=== PATIENT | female | born 1960 | race Caucasian/White ===

== ENCOUNTER → 2016-04-19 | Outpatient (REF) | payer OTHER ==
[~2016-04-19] MED LIST: /DULO30CA OR; ADDE5TAB5 PO; ALBU17IN2 INH; ATEN25TA OR; ATEN25TA PO; GLUC500T OR; HYDR-3719 PO; IMIT4KIT SC; LIDO5DIS36 TD; LYRI300C PO; METF500T PO; MOBI15TA PO; OMEP10CASR PO; SYMB16INH INH; SYNT125T OR; TOPI50TA OR; VERA100C PO; VICT18IN SC; VYTO10TA5 OR; ZOLO100T OR; ZOLO100T PO; ZYRT10CA PO; byetta PO
[2016-04-19 18:20] LABS: ALBUMIN 3.9 GM/DL (3.2-5.2); ALBUMIN/GLOBULIN RATIO 1.08 (1.00-1.93); ALKALINE PHOSPHATASE 137 U/L (45-117); ALT/SGPT 24 U/L (12-78); ANION GAP 8 MEQ/L (8-16); AST/SGOT 17 U/L (15-37); BILIRUBIN,TOTAL 0.3 MG/DL (0.2-1.0); BLOOD UREA NITROGEN 9 MG/DL (7-18); CALCIUM LEVEL 9.4 MG/DL (8.5-10.1); CARBON DIOXIDE LEVEL 25 MEQ/L (21-32); CHLORIDE LEVEL 112 MEQ/L (98-107); CREATININE FOR GFR 0.67 MG/DL (0.55-1.02); GLOMERULAR FILTRATION RATE > 60.0 (>51); GLUCOSE, FASTING 153 MG/DL (70-105); POTASSIUM SERUM 4.7 MEQ/L (3.5-5.1); SODIUM LEVEL 145 MEQ/L (136-145); TOTAL PROTEIN 7.5 GM/DL (6.4-8.2)
[2016-04-19 19:38] LABS: BASO % 0.3 % (0.0-1.0); EOS # 3.7 K/mm3 (0.0-0.50); EOS % 22.9 % (0.0-3.0); LARGE UNSTAINED CELL # 0.2 K/mm3 (0.0-0.4); LYMPH # 2.8 K/mm3 (1.5-4.5); LYMPH % 17.6 % (24.0-44.0); MEAN CORPUSCULAR HEMOGLOBIN 27.2 pg (27.0-33.0); MEAN CORPUSCULAR HGB CONC 31.2 g/dl (32.0-36.5); MEAN CORPUSCULAR VOLUME 87.4 fl (80.0-96.0); MONO # 0.8 K/mm3 (0.0-0.8); MONO % 4.7 % (0.0-5.0); NEUTROPHILS # 8.6 K/mm3 (1.8-7.7); NEUTROPHILS % 53.5 % (36.0-66.0); PLATELET COUNT, AUTOMATED 425 k/mm3 (150-450); RED CELL DISTRIBUTION WIDTH 15.4 % (11.5-14.5); WHITE BLOOD COUNT 16.1 K/mm3 (4.0-10.0)
== END ==
LOC: M SFHCCLAY 11:11
PROVIDERS: ATTEND Family Medicine
DX: K52.9 Noninfective gastroenteritis and colitis, unspecified (principal)

== ENCOUNTER → 2016-05-06 | Outpatient (REF) | payer OTHER ==
[2016-05-06 18:57] LABS: MEAN CORPUSCULAR HEMOGLOBIN 27.3 pg (27.0-33.0); MEAN CORPUSCULAR HGB CONC 31.5 g/dl (32.0-36.5); MEAN CORPUSCULAR VOLUME 86.6 fl (80.0-96.0); RED CELL DISTRIBUTION WIDTH 14.6 % (11.5-14.5); WHITE BLOOD COUNT 13.3 K/mm3 (4.0-10.0)
== END ==
LOC: M SFHCCLAY 11:58
PROVIDERS: ATTEND Family Medicine
DX: R10.84 Generalized abdominal pain (principal)

== ENCOUNTER → 2016-05-17 | Outpatient (CLI) | payer OTHER | LOC: M RAD 08:46 | PROVIDERS: ATTEND Family Medicine | DX: R10.84 Generalized abdominal pain (principal); Z53.29 Procedure and treatment not carried out because of patient's decision for other reasons ==

== ENCOUNTER → 2016-05-23 | Outpatient (CLI) | payer OTHER ==
[~2016-05-23] MED LIST changes: +E-Z PAQUE 60% w/v SUSP 355ML BOTTLE As Ordered ONE; +E-Z-GAS II EFFERVESCENT PACKET (SODIUM BICARB./CITRIC ACID/SIMETHICONE) As Ordered ONE; +E-Z-HD 98% w/w 340GM SUSP BTL As Ordered ONE
--- NOTE | 2016-05-23 13:54 | REP ---
DOUBLE CONTRAST UPPER GI SERIES WITH SMALL-BOWEL FOLLOW-THROUGH AND KUB: 05/23/2016 CLINICAL HISTORY: Generalized abdominal pain. No prior studies. FINDINGS: The judge clerk film shows a normal gas pattern. There are a few pelvic phleboliths. Stool and gas scattered without dilatation or signs of obstruction. Paucity of gas in small bowel loops. Right upper quadrant clips from prior cholecystectomy. UPPER GI: Lateral cine esophagram images show normal elevation of the cricopharyngeus. There is a small mucosal bleb anteriorly in the lower cervical esophagus about the C6 level seen on repeated swallows. There is a small indentation posteriorly at the C5 level on the esophagus which may be related to hardware from the anterior cervical discectomy and fusion. Normal elevation of cricopharyngeus without significant stricture. There is no laryngeal penetration or aspiration. The thoracic esophagus shows normal motility and distensibility. I could not confirm a hiatal hernia. There are episodes of small amounts of reflux during the course of the examination. His is through a patulous gastroesophageal junction. No extrinsic mass. Persistent mucosal lesion or thoracic esophageal stricture. Stomach shows normal rugal fold thickness and distensibility. There is no ulcer crater, nodule or mass. No extrinsic mass effect. The duodenum shows normal fold thickness without ulcer crater or mass. There is no sign of duodenitis or extrinsic mass effect. There are clips from the cholecystectomy adjacent to the duodenum. IMPRESSION: 1. No duodenal or gastric ulcer, duodenitis, gastritis, mass or extrinsic mass effect. No polyps or filling defects. 2. Small amounts of reflux in the lower esophageal segment without ulcer crater. 3. Thoracic esophagus grossly intact. Cervical esophagus shows a small web anteriorly and a small mucosal indentation posteriorly at the C6 and C5 levels respectively which do not cause a significant stricture. SMALL BOWEL FOLLOW-THROUGH: A further barium meal was administered. Overhead images demonstrated that barium was in the cecum at 20 minutes. Fluoroscopy showed the small bowel loops with normal distensibility and no evidence of stricture or mass. There is no dilatation, loop separation, angulated or strictured loops terminal ileum grossly intact. Ileocecal valve unremarkable. She had no tenderness during the fluoroscopic examination. IMPRESSION: 1. Normal small bowel follow-through. Terminal ileum, ileocecal valve, jejunum and ileum all grossly unremarkable. 2. Fluoroscopy time: 2 minutes 14 seconds. Signed by Ricky Ponce MD 05/23/2016 05:18 P
== END ==
LOC: M RAD 10:07
PROVIDERS: ATTEND Family Medicine
DX: R10.84 Generalized abdominal pain (principal)

== ENCOUNTER → 2016-06-15 | Outpatient (REF) | payer OTHER ==
[~2016-06-15] MED LIST changes: -E-Z PAQUE 60% w/v SUSP 355ML BOTTLE As Ordered ONE; -E-Z-GAS II EFFERVESCENT PACKET (SODIUM BICARB./CITRIC ACID/SIMETHICONE) As Ordered ONE; -E-Z-HD 98% w/w 340GM SUSP BTL As Ordered ONE
[2016-06-16 12:22] LABS: ANION GAP 9 MEQ/L (8-16); BLOOD UREA NITROGEN 15 MG/DL (7-18); CALCIUM LEVEL 10.1 MG/DL (8.5-10.1); CARBON DIOXIDE LEVEL 29 MEQ/L (21-32); CHLORIDE LEVEL 103 MEQ/L (98-107); CREATININE FOR GFR 0.71 MG/DL (0.55-1.02); GLOMERULAR FILTRATION RATE > 60.0 (>51); GLUCOSE, FASTING 157 MG/DL (70-105); POTASSIUM SERUM 4.7 MEQ/L (3.5-5.1); SODIUM LEVEL 141 MEQ/L (136-145)
== END ==
LOC: M SFHCCLAY 14:44
PROVIDERS: ATTEND Family Medicine
DX: Z11.59 Encounter for screening for other viral diseases (principal); E11.9 Type 2 diabetes mellitus without complications

== ENCOUNTER → 2016-07-26 | Outpatient (CLI) | payer OTHER ==
[~2016-07-26] VITALS: Ht 157.5 cm; Wt 69.9 kg
[~2016-07-26] MED LIST changes: +BACL10TA2 PO; +LEVO125T3 PO; +LIDOCAINE 2% INJ 100 MG/5 ML SDV (FOR ANES.) As Ordered ONE; +LYRI150C PO; +NS 1,000 ML IV ONE; +OMEP40CA2 PO; +PROPOFOL 200 MG/20 ML VIAL As Ordered ONE; +TOPA100T8 PO; +VERA40TA PO; +fentaNYL 100 MCG/2 ML INJECTION (J3010) As Ordered ONE
--- NOTE | 2016-07-26 07:52 | ROOR ---
Patient Name: Jay Pringle Procedure Date: 07/26/2016 7:34 AM Date of : 1960 Age: 55 Room: [facility] Gender: Female Note Status: Finalized Procedure: Upper Endoscopy + Biopsies Indications: Epigastric abdominal pain Providers: Jacoby Echols MD Referring MD: Joseph Riddle MD Requesting Provider: Medicines: Monitored Anesthesia Care Complications: No immediate complications. Procedure: Pre-Anesthesia Assessment: - The heart rate, respiratory rate, oxygen saturations, blood pressure, adequacy of pulmonary ventilation, and response to care were monitored throughout the procedure. The Endoscope was introduced through the mouth, and advanced to the second part of duodenum. The upper GI endoscopy was accomplished without difficulty. The patient tolerated the procedure well. Findings: The Z-line was irregular and was found 35 cm from the incisors. No other significant abnormalities were identified in a careful examination of the stomach. Biopsies were taken with a cold forceps in the gastric antrum for Helicobacter pylori testing. The exam of the duodenum was otherwise normal. Impression: - Z-line irregular, 35 cm from the incisors. - Biopsies were taken with a cold forceps for Helicobacter pylori testing. - The examination was otherwise normal. Recommendation: - Patient has a contact number available for emergencies. The signs and symptoms of potential delayed complications were discussed with the patient. Return to normal activities tomorrow. Written discharge instructions were provided to the patient. - High fiber diet. - Discharge patient to home. - Continue present medications. - Await pathology results. - Follow an antireflux regimen. - Telephone GI clinic for pathology results. - The findings and recommendations were discussed with the patient's family. Jacoby Echols MD Jacoby Echols MD 07/26/2016 7:52:15 AM This report has been signed electronically. Number of Addenda: 0 Note Initiated On: 07/26/2016 7:34 AM Estimated Blood Loss: Estimated blood loss: none.
[2016-07-26 08:10] VITALS: BP 121/75
== END | disposition home or self-care (01) ==
LOC: M OPP 06:48
PROVIDERS: ATTEND Internal Medicine Gastroenterology
DX: R10.13 Epigastric pain (principal); K22.8 Other specified diseases of esophagus; R00.2 Palpitations; E78.5 Hyperlipidemia, unspecified; E11.9 Type 2 diabetes mellitus without complications; E03.9 Hypothyroidism, unspecified; E04.1 Nontoxic single thyroid nodule; K58.9 Irritable bowel syndrome, unspecified; K21.9 Gastro-esophageal reflux disease without esophagitis; K62.5 Hemorrhage of anus and rectum; K62.3 Rectal prolapse; R93.3 Abnormal findings on diagnostic imaging of other parts of digestive tract; M19.90 Unspecified osteoarthritis, unspecified site; M54.9 Dorsalgia, unspecified; M79.7 Fibromyalgia; M81.0 Age-related osteoporosis without current pathological fracture; F41.9 Anxiety disorder, unspecified; F32.9 Major depressive disorder, single episode, unspecified; I71.4 Abdominal aortic aneurysm, without rupture; G43.909 Migraine, unspecified, not intractable, without status migrainosus; G62.9 Polyneuropathy, unspecified; Z78.0 Asymptomatic menopausal state; J45.909 Unspecified asthma, uncomplicated; Z88.0 Allergy status to penicillin; Z88.2 Allergy status to sulfonamides; Z79.899 Other long term (current) drug therapy; Z98.1 Arthrodesis status; F17.210 Nicotine dependence, cigarettes, uncomplicated; Z80.0 Family history of malignant neoplasm of digestive organs; Z80.3 Family history of malignant neoplasm of breast; Z80.7 Family history of other malignant neoplasms of lymphoid, hematopoietic and related tissues

== ENCOUNTER → 2016-07-28 | Outpatient (REF) | payer OTHER ==
[~2016-07-28] MED LIST changes: -LIDOCAINE 2% INJ 100 MG/5 ML SDV (FOR ANES.) As Ordered ONE; -NS 1,000 ML IV ONE; -PROPOFOL 200 MG/20 ML VIAL As Ordered ONE; -fentaNYL 100 MCG/2 ML INJECTION (J3010) As Ordered ONE
[2016-07-28 17:51] LABS: ANION GAP 7 MEQ/L (8-16); BLOOD UREA NITROGEN 9 MG/DL (7-18); CALCIUM LEVEL 10.2 MG/DL (8.5-10.1); CARBON DIOXIDE LEVEL 26 MEQ/L (21-32); CHLORIDE LEVEL 103 MEQ/L (98-107); CREATININE FOR GFR 0.73 MG/DL (0.55-1.02); FREE T4 1.17 NG/DL (0.76-1.46); GLOMERULAR FILTRATION RATE > 60.0 (>51); GLUCOSE, FASTING 131 MG/DL (70-105); POTASSIUM SERUM 4.3 MEQ/L (3.5-5.1); SODIUM LEVEL 136 MEQ/L (136-145)
[2016-07-28 18:58] LABS: MEAN CORPUSCULAR HEMOGLOBIN 27.8 pg (27.0-33.0); MEAN CORPUSCULAR HGB CONC 32.3 g/dl (32.0-36.5); MEAN CORPUSCULAR VOLUME 86.3 fl (80.0-96.0); RED CELL DISTRIBUTION WIDTH 15.3 % (11.5-14.5); WHITE BLOOD COUNT 12.6 K/mm3 (4.0-10.0)
== END ==
LOC: M SFHCCLAY 11:46
PROVIDERS: ATTEND Family Medicine
DX: Z01.818 Encounter for other preprocedural examination (principal); E11.9 Type 2 diabetes mellitus without complications; E03.9 Hypothyroidism, unspecified

== ENCOUNTER → 2016-07-28 | Outpatient (CLI) | payer OTHER ==
--- NOTE | 2016-07-29 01:44 | REP ---
Clinical: Preoperative assessment . Comparison: 05/05/2011 . Technique: PA and lateral. Findings: The mediastinum and cardiac silhouette are normal. The lung shaikh are clear and without acute consolidation, effusion, or pneumothorax. The skeletal structures are intact and normal. Impression: 1. No acute cardiopulmonary process. Signed by Travis Rodriguez MD 07/29/2016 01:36 A
== END ==
LOC: M RAD 13:30
PROVIDERS: ATTEND Family Medicine
DX: Z01.818 Encounter for other preprocedural examination (principal); E11.9 Type 2 diabetes mellitus without complications; E03.9 Hypothyroidism, unspecified

== ENCOUNTER → 2016-12-21 | Outpatient (REF) | payer OTHER ==
[~2016-12-21] MED LIST changes: +ADDE1TAB14 PO; -ADDE5TAB5 PO; -LEVO125T3 PO; +LEVO125T4 PO; -LIDO5DIS36 TD; +LIDO5DIS41 TD; -METF500T PO; +METF500T13 PO; +TOPA100T12 PO; -TOPA100T8 PO
[2016-12-21 18:00] LABS: FREE T4 1.1 NG/DL (0.76-1.46)
== END ==
LOC: M SFHCCLAY 13:21
PROVIDERS: ATTEND Family Medicine
DX: E03.9 Hypothyroidism, unspecified (principal)

== ENCOUNTER → 2017-10-10 | Outpatient (REF) | payer MEDICARE ==
[2017-10-10 18:32] LABS: ANION GAP 9 MEQ/L (8-16); BLOOD UREA NITROGEN 15 MG/DL (7-18); CALCIUM LEVEL 9.8 MG/DL (8.5-10.1); CARBON DIOXIDE LEVEL 25 MEQ/L (21-32); CHLORIDE LEVEL 108 MEQ/L (98-107); CREATININE FOR GFR 0.74 MG/DL (0.55-1.30); ESTIMATED AVERAGE GLUCOSE 157 MG/DL (60-110); FREE T4 0.93 NG/DL (0.76-1.46); GLOMERULAR FILTRATION RATE > 60.0 (>51); GLUCOSE, FASTING 88 MG/DL (70-100); HEMOGLOBIN A1c 7.1 %; POTASSIUM SERUM 5.1 MEQ/L (3.5-5.1); SODIUM LEVEL 142 MEQ/L (136-145)
[2017-10-10 18:34] LABS: CREATININE, URINE 96.6 MG/DL; MAU/CREAT RATIO 6.2 MCG/MG (0.0-30.0)
== END ==
LOC: M SFHCCLAY 10:53
DX: Z12.4 Encounter for screening for malignant neoplasm of cervix (principal); E03.9 Hypothyroidism, unspecified; E11.9 Type 2 diabetes mellitus without complications
CPT/HCPCS: 84443

== ENCOUNTER → 2017-11-03 | Outpatient (REF) | payer MEDICARE ==
[2017-11-03 14:02] LABS: TOTAL 25(OH) VITAMIN D 132.1 NG/ML (30.0-100.0)
== END ==
LOC: M LABNEURO 11:16
DX: E55.9 Vitamin D deficiency, unspecified (principal)
CPT/HCPCS: 82306

== ENCOUNTER → 2018-04-16 | Outpatient (REF) | payer MEDICARE, MEDICAID ==
[2018-04-16 18:54] LABS: APPEARANCE, URINE CLEAR (CLEAR); BACTERIA, URINE AUTO NEGATIVE (NEGATIVE); BILIRUBIN, URINE AUTO NEGATIVE (NEGATIVE); BLOOD, URINE BLOOD 1+ (NEGATIVE); COLOR, URINE YELLOW (YELLOW); GLUCOSE, URINE (UA) AUTO 3+ mg/dL (NEGATIVE); KETONE, URINE AUTO NEGATIVE (NEGATIVE); LEUKOCYTE ESTERASE, URINE AUTO NEGATIVE (NEGATIVE); NITRITE, URINE AUTO NEGATIVE (NEGATIVE); PROTEIN, URINE AUTO NEGATIVE (NEGATIVE); RBC, URINE AUTO 2 /HPF (0-3); SPECIFIC GRAVITY URINE AUTO 1.029 (1.002-1.035); SQUAMOUS EPITHELIAL CELL UR AU 2 /HPF (0-6); UROBILINOGEN, URINE AUTO 0.2 mg/dL (0.0-2.0); WBC, URINE AUTO 1 /HPF (0-3)
== END ==
LOC: M SMT 17:26
PROVIDERS: ATTEND Nurse Practitioner Women's Health
DX: N32.9 Bladder disorder, unspecified (principal); Z79.899 Other long term (current) drug therapy

== ENCOUNTER → 2018-05-15 | Outpatient (REF) | payer MEDICARE, MEDICAID ==
[~2018-05-15] MED LIST changes: -/DULO30CA OR; +CYMB1CAP5 OR
[2018-05-19 00:08] LABS: FATS NEUTRAL Normal (.); FATS TOTAL Normal (.); PANCREATIC ELASTASE STOOL >500 (>200)
== END ==
LOC: M SFHCCLAY 16:18
PROVIDERS: ATTEND Family Medicine
DX: K52.9 Noninfective gastroenteritis and colitis, unspecified (principal)

== ENCOUNTER → 2018-07-19 | Outpatient (REF) | payer MEDICARE | LOC: M SFHCCLAY 16:07 | PROVIDERS: ATTEND Family Medicine | DX: E03.9 Hypothyroidism, unspecified (principal); Z53.8 Procedure and treatment not carried out for other reasons ==

== ENCOUNTER → 2019-04-11 | Outpatient (CLI) | payer OTHER ==
[~2019-04-11] MED LIST changes: -OMEP40CA2 PO; +OMEP40CA97 PO; -VERA100C PO; +VERA100C4 PO
--- NOTE | 2019-04-11 11:21 | REP ---
LEFT ANKLE SERIES: Four views. HISTORY: Osteoarthritis of the left ankle. FINDINGS: Ankle mortise is intact. There is mild diffuse osteopenia. Periarticular soft tissues are unremarkable. There is a tiny plantar calcaneal spur. No tibiotalar spurring is appreciated. IMPRESSION: Negative radiographs of the left ankle. Electronically Signed by Wilmer Tuttle MD 04/11/2019 02:32 P
--- NOTE | 2019-04-11 11:27 | REP ---
Lumbar spine five views: The the patient had a lumbar spine MRI and 08/22/2013. The twelfth ribs are hypoplastic. Vertebral body heights and alignment are normal. There is mild degenerative disc disease throughout the lumbar spine. There is no spondylolysis or spondylolisthesis. The pedicles and facets are unremarkable. The sacroiliac articulations are unremarkable. Impression: Mild degenerative disc disease throughout the lumbar spine. There is no spondylolysis or spondylolisthesis. Electronically Signed by Clifton Castillo MD 04/11/2019 11:19 A
== END ==
LOC: M CLY 10:25
PROVIDERS: ATTEND Family Medicine
DX: M43.16 Spondylolisthesis, lumbar region (principal); M19.072 Primary osteoarthritis, left ankle and foot

== ENCOUNTER → 2019-04-11 | Outpatient (REF) | payer OTHER ==
[2019-04-11 16:44] LABS: BASO # 0.1 10^3/uL (0.0-0.2); EOS # 0.5 10^3/uL (0.0-0.5); HEMATOCRIT 43.5 % (36.0-47.0); HEMOGLOBIN 13.7 g/dl (12.0-15.5); LYMPH # 3.7 10^3/uL (1.5-5.0); LYMPH % 29.1 % (24.0-44.0); MEAN CORPUSCULAR HGB CONC 31.5 g/dl (32.0-36.5); MEAN CORPUSCULAR VOLUME 82.7 fl (80.0-96.0); MONO # 0.8 10^3/uL (0.0-0.8); MONO % 6.7 % (0.0-5.0); NEUTROPHILS # 7.4 10^3/uL (1.5-8.5); NEUTROPHILS % 58.7 % (36.0-66.0); PLATELET COUNT, AUTOMATED 441 10^3/uL (150-450); RED BLOOD COUNT 5.26 10^6/uL (4.00-5.40); WHITE BLOOD COUNT 12.5 10^3/uL (4.0-10.0)
[2019-04-11 16:49] LABS: RHEUMATOID FACTOR QUANT < 10.0 IU/ML (<15.0); URIC ACID 4.6 MG/DL (2.6-6.0)
[2019-04-11 16:59] LABS: ALBUMIN 4.1 GM/DL (3.2-5.2); ALT/SGPT 24 U/L (12-78); BILIRUBIN,TOTAL 0.3 MG/DL (0.2-1.0); BLOOD UREA NITROGEN 15 MG/DL (7-18); CALCIUM LEVEL 9.5 MG/DL (8.8-10.2); CARBON DIOXIDE LEVEL 31 MEQ/L (21-32); CHLORIDE LEVEL 105 MEQ/L (98-107); CREATININE FOR GFR 0.76 MG/DL (0.55-1.30); FREE T4 1.14 NG/DL (0.76-1.46); GLOMERULAR FILTRATION RATE > 60.0 (>45); GLUCOSE, FASTING 146 MG/DL (70-100); POTASSIUM SERUM 4.5 MEQ/L (3.5-5.1); SODIUM LEVEL 141 MEQ/L (136-145); TOTAL PROTEIN 7.9 GM/DL (6.4-8.2)
[2019-04-11 17:02] LABS: HEMOGLOBIN A1c 7.8 %
[2019-04-11 17:15] LABS: CREATININE, URINE 91.4 MG/DL; MALB URINE SIEMENS 23.7 MG/L; MAU/CREAT RATIO 25.9 MCG/MG (0.0-30.0)
[2019-04-16 00:11] LABS: ANA (HEP2) Negative (.); Lyme Disease IgG/IgM Antibodie <0.91 ISR (0.00-0.90); Lyme Disease IgM Ab Quantitati <0.80 index (0.00-0.79)
== END ==
LOC: M SFHCCLAY 09:54
PROVIDERS: ATTEND Family Medicine
DX: E11.9 Type 2 diabetes mellitus without complications (principal); E03.9 Hypothyroidism, unspecified; K58.0 Irritable bowel syndrome with diarrhea; M19.072 Primary osteoarthritis, left ankle and foot

== ENCOUNTER → 2020-02-06 | Outpatient (REF) | payer OTHER ==
[2020-02-06 14:06] LABS: ALBUMIN 4.1 GM/DL (3.2-5.2); ALT/SGPT 27 U/L (12-78); BILIRUBIN,TOTAL 0.4 MG/DL (0.2-1.0); BLOOD UREA NITROGEN 14 MG/DL (7-18); CALCIUM LEVEL 10.4 MG/DL (8.8-10.2); CARBON DIOXIDE LEVEL 29 MEQ/L (21-32); CHLORIDE LEVEL 103 MEQ/L (98-107); CREATININE FOR GFR 0.85 MG/DL (0.55-1.30); FREE T4 1.29 NG/DL (0.76-1.46); GLOMERULAR FILTRATION RATE > 60.0 (>45); GLUCOSE, FASTING 138 MG/DL (70-100); POTASSIUM SERUM 4.3 MEQ/L (3.5-5.1); SODIUM LEVEL 139 MEQ/L (136-145)
[2020-02-06 15:04] LABS: HEMOGLOBIN A1c 7.7 %
== END ==
LOC: M SFHCCLAY 09:23
PROVIDERS: ATTEND Family Medicine
DX: E11.9 Type 2 diabetes mellitus without complications (principal)

== ENCOUNTER → 2020-03-04 | Outpatient (REF) | payer MEDICARE, OTHER | LOC: M SFHCLERA 10:54 | PROVIDERS: ATTEND Nurse Practitioner Family | DX: J06.9 Acute upper respiratory infection, unspecified (principal); Z11.52 Encounter for screening for COVID-19 | CPT/HCPCS: G0463; U0003 ==

== ENCOUNTER → 2020-04-02 | Outpatient (CLI) | payer OTHER ==
[~2020-04-02] MED LIST changes: +AIMO70IN2 SC; +ATOR1TAB21 PO; +JARD1TAB3 PO; +LINZ290C PO; +METF-839 PO; +ORPH100T PO; +PROV108A INH; +RIZA10TA58 PO; +TRAZ-252 PO; +VITA50005 PO; +VYVA40CA3 PO
== END ==
LOC: M LABSMTC 10:04
PROVIDERS: ATTEND Anesthesiology
DX: Z01.812 Encounter for preprocedural laboratory examination (principal); Z20.822 Contact with and (suspected) exposure to COVID-19

== ENCOUNTER 2020-04-07 07:35 | Day surgery (SDC) | payer MEDICARE ==
[~2020-04-07] VITALS: Ht 156.2 cm; Wt 70.3 kg
[~2020-04-07 07:35] MED LIST changes: +NS 1,000 ML IV ONE
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
--- OUTSIDE RECORDS SUMMARY | 2020-04-07 07:40 | CCD ---
Author Author [facility] Organization [facility] Address Unknown Phone Unavailable Care Team Providers Care Can Filling Room Sweeper Name Role Phone Victorina Schneider Unavailable PROBLEMS Type Condition ICD9-CM Code [id number] Code Onset Dates Condition S tatus SNOMED Code Notes Problem Type 2 diabetes mellitus without complications E11 .9 Active 321210535 Problem Hypothyroid E03.9 Active 11404290 Problem Hypothyroidism, unspecified E03.9 Active 1111 05243 Problem History of herpes simplex infection Z86.19 Acti ve 585172434 Problem Hearing impairment H91.90 Active 81113160 Problem Generalized osteoarthrosis, involving multiple sites M15.9 Active 321586467 Problem Encounter for routine gynecological examination Z0 1.419 Active 722379665 Problem Memory impairment R41.3 Active 297871645 Problem Migraine, unspecified, not intractable, without status migrainosus G43.909 Active 71218854 Problem Generalized pruritus L29.9 Active 296203274 Problem Other chronic pain G89.29 Active 53744887 Problem Mixed hyperlipidemia E78.2 Active 595875385 Problem Major depressive disorder, single episode, unspecified F32.9 Active 94838887 Problem Fibrocystic breast disease, unspecified laterality N60.19 Active 13242490 Problem Recurrent UTI N39.0 Active 361885996 Problem Rectal prolapse K62.3 Active 09356341 Problem Occipital neuralgia of left side M54.81 Active 64467515 Problem Sinusitis, unspecified chronicity, unspecified location J32.9 Active 54761377 Problem Mild persistent asthma without complication J45.30 Active 442072285 Problem Bladder disorder, unspecified N32.9 Active 42 035592 Problem Unspecified asthma, uncomplicated J45.909 Active 7748495502640 Problem Chronic diarrhea K52.9 Active 810503995 Problem Irritable bowel syndrome with diarrhea K58.0 A ctive 377769572 Problem Chronic pancreatitis, unspecified pancreatitis type K86.1 Active 151049044 Problem Spondylolisthesis at L4-L5 level M43.16 Active 735326966 Problem Primary osteoarthritis, 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 2 Active 228808563 Problem Other polyneuropathy G62.89 Active 89620271 Problem 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 Active 24676331 Problem Exacerbation of asthma, unsp ecified asthma severity, unspecified whether persistent J45.901 Active 626492595 Problem Myalgia and myositis, unspecified M79.1 Active 75907460 Problem Screening for malignant neoplasm of the cervix Z12 .4 Active 410393722 Problem Breast cancer screening by mammogram Z12.31 Act blaise 635102340 Problem Encounter for general adult medical examination without abnormal findings Z00.00 Active 325472339 Problem Family history of colon cancer Z80.0 Active 3 73236259 Problem Irritable bowel syndrome with both constipation and diarrh ea K58.2 Active 87130189 ALLERGIES Allergen (clinical drug ingredient) Drug/Non Drug Allergy do cumented on EMR Reaction Allergy Type Onset Date Status Sulfa (for allergy use only) swelling Non Drug Allergy Active Penicillin (For Allergies Use Only) swelling Drug Allerg y Active ENCOUNTERS from 1958 to 2020-03-09 Encounter Location Date Provider Diagnosis [facility] [address] [place] [id number] Feb, Victorina Schneider IMMUNIZATIONS Vaccine Route Administration Date Status Influenza (18 yrs & older) Flublok IM Intramuscular Dec 22, 2017 Administered Influenza (6mo & up) Fluzone IM Intramuscular Nov 30, 2016 Ad ministered Influenza (6mo & up) Fluzone IM Intramuscular Nov 10, 2015 Ad ministered TDAP 0.5mL (Boostrix) IM Intramuscular June 28, 2011 Administe red Influenza (6mo & up) Fluzone IM Intramuscular Nov 12, 2014 Ad ministered Influenza (6mo & up) Fluzone IM Intramuscular Dec 26, 2013 Ad ministered Influenza (6mo & up) Fluzone IM Intramuscular Dec 20, 2012 Ad ministered Influenza (6mo & up) Fluzone IM Nov 24, 2011 Adm inistered SOCIAL HISTORY Tobacco Use: Social History Observation Description Date Details (start date - stop date) Current Smoker Sex Assigned At : Social History Observation Description Sex Assigned At Unknown Education: Question Answer Notes Level of Education: Not Finished College Audit Question Answer Notes Total Score: 0 Interpretation: Alcohol Education Congregation: Question Answer Notes Congregation No taoism beliefs that would impact health care. Sexual Hx: Question Answer Notes Had sex in the last 12 months (vaginal, oral, or anal)? No LMP: 2011 Have you ever had an STD? Yes Herpes? Yes Chlamydia? Yes Drug and Alcohol Question Answer Notes Total Score: 0 Interpretation: No problems reported Alcohol Screening: Question Answer Notes Did you have a drink containing alcohol in the past year? Ye s Points 1 Interpretation Negative How often did you have six or more drinks on one occas ion in the past year? Never (0 points) How many drinks did you have on a typica l day when you were drinking in the past year? 1 or 2 (0 points) How often did you have a drink containing alcohol in t he past year? Monthly or less (1 point) BMI Care Goal Follow-Up Question Answer Notes Above Normal BMI Follow-Up Dietary management educatio n, guidance, and counseling Tobacco Use: Question Answer Notes Are you a: current smoker has tried zyban, eliza ntix, nicotine patches. How many cigarettes a day do you smoke? 5 or less REASON FOR REFERRAL No Information VITAL SIGNS No information MEDICATIONS Medication SIG (Take, Route, Frequency, Duration) Notes Start Da te End Date Status Levothyroxine Sodium 100 MCG 1 tablet on an empty stom ach in the morning Orally Once a day for 30 Active Accu-Chek Eliz - as directed May, Acti ve Nicotine Polacrilex 2 MG 1 lozenge as needed Mouth/Throat 20 rox e(s) a day May, Not-Taking Accu-Chek Guide - as directed In Vitro bid DX E11.9 26 M 2019 Active Adderall 10 MG 1 tablet Orally Daily Active Baclofen 20 MG 1 tablet with food or milk Orally qid prn Active Zyrtec Allergy 10 mg 1 tablet Orally Once a day prn Active Sertraline HCl 100 MG one and one half tabs Orally Once a day Nov, Active Lantus SoloStar 100 UNIT/ML INJECT 24 UNITS SUBCUTANE OUSLY EVERY DAY, OR DIRECTED. Active Omeprazole 40 MG TAKE 1 CAPSULE EVERY DAY Active Ventolin HFA 108 (90 Base) MCG/ACT 2 puffs Inhalation qid prn Active Metformin HCl 500 mg 1 tab Orally bid Active Lyrica 150 MG 1 capsule Orally Twice a day Oct, Active Creon 4189-7424 UNIT 1-2 with meals Orally Jul, Not-Taking Pen [place] 06/28" 31G X 8 MM as directed daily June, 3 Active PredniSONE 20 MG 1 tablet Orally Once a day for 5 day(s) 2 Feb, 2020 Active Linzess 290 MCG 1 capsule at least 30 minute s before the first meal of the day on an empty stomach Orally Once a day Active Atorvastatin Calcium 20 MG 1 tablet Orally Once a day Active Jardiance 25 MG TAKE 1 TABLET EVERY DAY Active Diflucan 150 MG 1 tablet Orally once, june repeat in 3 days for 9 Not-Taking Valtrex 500 MG 1 tablet Orally bid for 3 days each episode Active Accu-Chek FastClix Lancets - as directed bid E11.9 26 2019 Active Vyvanse 40 MG 1 capsule in the morning Orally Once a day Active Accu-Chek Instant Control - as directed In Vitro monthly 2 Apr, Active Symbicort 80-4.5 MCG/ACT 2 puffs Inhalation Twice a day for 90 day(s) Active Hydrocortisone 2.5 % 1 application to affected area Externally q id prn Aug, Active Alcohol Prep 70 % as directed bid E11.9 Apr, Active [place] 10-325 MG 1 tab(s) Orally every 4-6 hrs qid prn pain MDD=4 Dec, Active Alprazolam 1 mg 1 tablet Orally Twice a day prn Active Maxalt 10 MG 1 tablet as needed one time Orally Once a day Active Ajovy 225 MG/1.5ML 1.5 ml Subcutaneous monthly Active PROCEDURES No Information RESULTS No Results REASON FOR VISIT covid results MEDICAL (GENERAL) HISTORY Type Description Date Medical History depression Medical History fibromyalgia Medical History osteoporosis Medical History type II diabetes Medical History Hypothyroidism Medical History migraine headache Medical History asthma Medical History IBS Medical History SPIROMETRY 02-25-2014 Medical History COLONOSCOPY 10-07-2011 Medical History Dysfunctional uterine bleeding Medical History Obesity Surgical History Tonsils and Adenoids removed 1968 Surgical History Tubal ligation 1989 Surgical History right ovary and fallopian tube removed 1 995 Surgical History sinus surgery 2003 Surgical History right rotator cuff 2006 Surgical History left and right ulnar nerve 2011 Surgical History gallbladder removed 2011 Surgical History carpal tunnel right 2012 Surgical History colonoscopy (postive FHx) 2002, 2011 Surgical History D&C February Surgical History Angiogram Brain 03-11-2014 Surgical History C4-7 Discectomy and fusion, Dr. Lee in [place] 08/06/2015 Surgical History cystoscopy 04/2018 Hospitalization History Surgically related Goals Section No Information Health Concerns No Information MEDICAL EQUIPMENT No Information MENTAL STATUS No Information FUNCTIONAL STATUS No Information ASSESSMENTS No Information PLAN OF TREATMENT Medication Medication Name Sig Start Date Stop Date PredniSONE 20 MG 1 tablet Orally Once a day for 5 day(s) Feb, Next Appt Details Provider Name:Joseph Riddle, 2020-06-05 08 :30:00 AM, [address] [place], [address], Insurance Providers Payer Name Payer Address Payer Phone Insured Name Patient Relati onship to Insured Coverage Start Date Coverage End Date NO FAULT [address] [place] [address] DO SURJIT [employer]OS[employer] [address] [address] [facility] [phone] ISAURA GROSSMAN self
--- OUTSIDE RECORDS SUMMARY | 2020-04-07 07:40 | CCD ---
Author Author [facility] Organization [facility] Address Unknown Phone Unavailable Care Team Providers Care Well Logging Captain Name Role Phone Victorina Schneider Unavailable PROBLEMS Type Condition ICD9-CM Code [id number] Code Onset Dates Condition S tatus SNOMED Code Notes Problem Type 2 diabetes mellitus without complications E11 .9 Active 600293516 Problem Hypothyroid E03.9 Active 92053172 Problem Hypothyroidism, unspecified E03.9 Active 1111 24579 Problem History of herpes simplex infection Z86.19 Acti ve 106951503 Problem Hearing impairment H91.90 Active 20904056 Problem Generalized osteoarthrosis, involving multiple sites M15.9 Active 663611528 Problem Encounter for routine gynecological examination Z0 1.419 Active 946679559 Problem Memory impairment R41.3 Active 018674493 Problem Migraine, unspecified, not intractable, without status migrainosus G43.909 Active 99297089 Problem Generalized pruritus L29.9 Active 821014398 Problem Other chronic pain G89.29 Active 34820199 Problem Mixed hyperlipidemia E78.2 Active 306199615 Problem Major depressive disorder, single episode, unspecified F32.9 Active 29826465 Problem Fibrocystic breast disease, unspecified laterality N60.19 Active 38680152 Problem Recurrent UTI N39.0 Active 516266902 Problem Rectal prolapse K62.3 Active 27100025 Problem Occipital neuralgia of left side M54.81 Active 64189422 Problem Sinusitis, unspecified chronicity, unspecified location J32.9 Active 05125297 Problem Mild persistent asthma without complication J45.30 Active 948909627 Problem Bladder disorder, unspecified N32.9 Active 42 510908 Problem Unspecified asthma, uncomplicated J45.909 Active 8357307303283 Problem Chronic diarrhea K52.9 Active 542152745 Problem Irritable bowel syndrome with diarrhea K58.0 A ctive 994794049 Problem Chronic pancreatitis, unspecified pancreatitis type K86.1 Active 056320996 Problem Spondylolisthesis at L4-L5 level M43.16 Active 824364074 Problem Primary osteoarthritis, 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 2 Active 516060211 Problem Other polyneuropathy G62.89 Active 07031419 Problem 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 Active 53013392 Problem Exacerbation of asthma, unsp ecified asthma severity, unspecified whether persistent J45.901 Active 577677213 Problem Myalgia and myositis, unspecified M79.1 Active 72265920 Problem Screening for malignant neoplasm of the cervix Z12 .4 Active 021320420 Problem Breast cancer screening by mammogram Z12.31 Act blaise 018817676 Problem Encounter for general adult medical examination without abnormal findings Z00.00 Active 194075557 Problem Family history of colon cancer Z80.0 Active 3 22329764 Problem Irritable bowel syndrome with both constipation and diarrh ea K58.2 Active 26700975 ALLERGIES Allergen (clinical drug ingredient) Drug/Non Drug Allergy do cumented on EMR Reaction Allergy Type Onset Date Status Sulfa (for allergy use only) swelling Non Drug Allergy Active Penicillin (For Allergies Use Only) swelling Drug Allerg y Active ENCOUNTERS from 1958 to 2020-03-04 Encounter Location Date Provider Diagnosis [place] [place] [address] Feb Victorina Schneider IMMUNIZATIONS Vaccine Route Administration Date [...] Notes Total Score: 0 Interpretation: Alcohol Education Taoism: Question Answer Notes Taoism No catholic beliefs that would impact health care. Sexual [...] Orally Twice a day Oct, Active Creon 4915-2969 UNIT 1-2 with meals Orally Jul, Not-Taking Pen [place] 06/28" 31G X 8 MM as directed [...] % as directed bid E11.9 Apr, Active [place] 10-325 MG 1 tab(s) Orally every 4-6 hrs qid prn pain MDD=4 Dec, Active Alprazolam 1 mg 1 tablet Orally Twice a day prn Active Maxalt 10 MG 1 tablet as needed one time Orally Once a day Active Ajovy 225 MG/1.5ML 1.5 ml Subcutaneous monthly Active PROCEDURES No Information RESULTS No Results REASON FOR VISIT ears plugged, nasal congestion MEDICAL (GENERAL) HISTORY Type Description Date Medical [...] ulnar nerve 2011 Surgical History gallbladder removed 2012 Surgical History carpal tunnel right 2012 Surgical History colonoscopy (postive FHx) 2011 Surgical History D&C February Surgical History Angiogram Brain 03-11-2014 Surgical History C4-7 Discectomy and fusion, Dr. Lee in [place] 08/06/2015 Surgical History cystoscopy 04/2018 Hospitalization History [...] Provider Name:Joseph Riddle, 2020-06-05 08 :30:00 AM, [address] [place] [address], [phone], Insurance Providers Payer Name Payer Address Payer Phone Insured Name Patient Relati onship to Insured Coverage Start Date Coverage End Date NO FAULT [address] [place] [address] DO SURJIT [employer] [address] [address] [facility] [phone] [phone] ISAURA GROSSMAN self
--- OUTSIDE RECORDS SUMMARY | 2020-04-07 07:40 | CCD | Continuity of Care Document ---
Author Author Jay SMITH PA-C Organization Unknown Address [facility] [address] [place] [address] Phone [phone] Problems Active Problems Provider Date Generalized anxiety disorder Steve Smith PA-C Onset: 06/13 Attention deficit hyperactivity disorder, predominantl y inattentive type Steve Smith PA-C Onset: 06/22/2016 Recurrent major depression in partial remission Steve kruse PA-C Onset: 06/22/2016 Social History Type Date Description Comments Sex Unknown Allergies, Adverse Reactions, Alerts Active Allergies Reaction Severity Comments Date Penicillin 06/22/2016 Sulfa Antibiotics 06/22/2016 NKFA 07/25/2016 NKEA 07/25/2016 Medications Active Medications SIG Qnty Indications Ordering Provide r Date Trazodone HCL 50mg Tablets 1-3 tabs by mouth at bedtime as needed for sleep 90tabs Wilmer hills MD 08/12/2019 Alprazolam 1mg Tablets 1 tab by mouth every day as needed 30tabs F33.41 Wilmer Jung MD 2019 Vyvanse 40mg Capsules 1 by mouth every day 30caps F90.0 Wilmer Jung MD 03/23/2018 F33.41 F41.1 Adderall 10mg Tablets 1 tab by mouth every day afternoon 30tabs F90.0 Wilmer Jung MD 05/02/2017 Sertraline HCL 100mg Tablets take two tablets by mouth daily 60tabs Wilmer Jung MD 11/2016 Vitamin D (Ergocalciferol) [id number] Capsules Take One Capsule By Mouth Once Weekly Unk aakash Victoza 18mg/3ML Solution Pen-Inje ct Inject 0.6MG Daily For 1 Week Then 1.5MG Daily Once A Day Unknown Jardiance 10mg Tablets Take One Tablet By Mouth Every Day Unknown Ventolin HFA 108(90Base) mcg/Act A erosol Inhale Two Puffs By Mouth Four Times A Day as Needed Unknown Atorvastatin Calcium 20mg Tablets Take One Tablet By Mouth Every Day Unknown Cetirizine HCL 10mg Tablets Take One Tablet By Mouth Every Day Unknown Levothyroxine Sodium 125mcg Tablet s Take One Tablet By Mouth Every Day Unknown Omeprazole 20mg Capsules DR Take One Capsule By Mouth Every Day Unknown Topiramate 100mg Tablets Take One Tablet By Mouth Daily Unknown Verapamil HCL 40mg Tablets Take One Tablet By Mouth Every Day Unknown Rizatriptan Benzoate 10mg Tablets Dispers Take One Tablet By Mouth AT Onset Of Headache May Repeat Once In 2 Rebekah Unknown Lidocaine 4% Cream Apply To Neck And Occiput Two Times A Day Unknown 00 Ketorolac Tromethamine 10mg Tablet s Take One Tablet By Mouth as Needed For Severe Migraine Unknown Hydrocodone-Acetaminophen 10-325mg Tablets Take One Tablet By Mouth Every 4 Hours Maximum Daily Dose 6 Unknown Lyrica 100mg Capsules Take One Capsule By Mouth Twice A Day Maximum Daily Dose 2 Unknown Immunizations Description No Information Available Vital Signs Description No Information Available Results Description No Information Available Procedures Description No Information Available Medical Devices Description No Information Available Encounters Type Date Location Provider Dx Diagnosis Office Visit 03/31/2020 9:[facility] Steve Smith PA-C F33.41 Major depressive disorder, recurrent, in partial remission F41.1 Generalized anxiety disorder F90.0 Attn-defct hyperactivity dis order, predom inattentive type Assessments Date Code Description Provider 03/31/2020 F33.41 Major depressive disorder, recur rent, in partial remission Steve Smith PA-C 03/31/2020 F41.1 Generalized anxiety disorder Zoran Smith PA-C 03/31/2020 F90.0 Attention-deficit hyperactivity disorder, predominantly inat Steve Smith PA-C 12/31/2019 F33.41 Major depressive disorder, recur rent, in partial remission Steve Smith PA-C 12/31/2019 F41.1 Generalized anxiety disorder Zoran Smith PA-C 12/31/2019 F90.0 Attention-deficit hyperactivity disorder, predominantly sarithat Steve Smith PA-C 10/03/2019 F33.41 Major depressive disorder, recur rent, in partial remission Steve Smith PA-C 10/03/2019 F41.1 Generalized anxiety disorder Zoran Smith PA-C 10/03/2019 F90.0 Attention-deficit hyperactivity disorder, predominantly violeta Smith PA-C Plan of Treatment Future Appointment(s):* 06/22/2020 10:40 am - Steve Smith PA-C at [facility] Functional Status Description No Information Available Mental Status Description No Information Available Referrals Description No Information Available
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
--- OUTSIDE RECORDS SUMMARY | 2020-04-07 07:40 | CCD ---
Author Author [facility] Organization [facility] Address Unknown Phone Unavailable Care Team Providers Care Mechanical Supervisor Name Role Phone Victorina Schneider Unavailable PROBLEMS Type Condition ICD9-CM Code [id number] Code Onset Dates Condition S tatus SNOMED Code Notes Problem Type 2 diabetes mellitus without complications E11 .9 Active 994324002 Problem Hypothyroid E03.9 Active 80419721 Problem Hypothyroidism, unspecified E03.9 Active 1110 42566 Problem History of herpes simplex infection Z86.19 Acti ve 699530717 Problem Hearing impairment H91.90 Active 58674923 Problem Generalized osteoarthrosis, involving multiple sites M15.9 Active 602458185 Problem Encounter for routine gynecological examination Z0 1.419 Active 987169784 Problem Memory impairment R41.3 Active 994499537 Problem Migraine, unspecified, not intractable, without status migrainosus G43.909 Active 16837043 Problem Generalized pruritus L29.9 Active 242590677 Problem Other chronic pain G89.29 Active 47463906 Problem Mixed hyperlipidemia E78.2 Active 496792509 Problem Major depressive disorder, single episode, unspecified F32.9 Active 16177443 Problem Fibrocystic breast disease, unspecified laterality N60.19 Active 98483923 Problem Recurrent UTI N39.0 Active 246347889 Problem Rectal prolapse K62.3 Active 86447603 Problem Occipital neuralgia of left side M54.81 Active 60970103 Problem Sinusitis, unspecified chronicity, unspecified location J32.9 Active 28677680 Problem Mild persistent asthma without complication J45.30 Active 678636205 Problem Bladder disorder, unspecified N32.9 Active 42 296178 Problem Unspecified asthma, uncomplicated J45.909 Active 7774895137626 Problem Chronic diarrhea K52.9 Active 744425074 Problem Irritable bowel syndrome with diarrhea K58.0 A ctive 698295153 Problem Chronic pancreatitis, unspecified pancreatitis type K86.1 Active 217571739 Problem Spondylolisthesis at L4-L5 level M43.16 Active 499039700 Problem Primary osteoarthritis, 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 2 Active 333253430 Problem Other polyneuropathy G62.89 Active 97008110 Problem 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 Active 38178019 Problem Exacerbation of asthma, unsp ecified asthma severity, unspecified whether persistent J45.901 Active 196718214 Problem Myalgia and myositis, unspecified M79.1 Active 05203934 Problem Screening for malignant neoplasm of the cervix Z12 .4 Active 711599779 Problem Breast cancer screening by mammogram Z12.31 Act blaise 782393815 Problem Encounter for general adult medical examination without abnormal findings Z00.00 Active 848834549 Problem Family history of colon cancer Z80.0 Active 3 52454357 Problem Irritable bowel syndrome with both constipation and diarrh ea K58.2 Active 29772750 ALLERGIES Allergen (clinical drug ingredient) Drug/Non Drug Allergy do cumented on EMR Reaction Allergy Type Onset Date Status Sulfa (for allergy use only) swelling Non Drug Allergy Active Penicillin (For Allergies Use Only) swelling Drug Allerg y Active ENCOUNTERS from 1958 to 2020-03-08 Encounter Location Date Provider Diagnosis [facility] [id number] [place] [id number] Feb, Victorina Schneider Viral upper respiratory tract infection J06.9 and Exacerbation of asthma, unspecified asthma severity, unspecified whether persistent J45.901 IMMUNIZATIONS Vaccine Route Administration Date Status Influenza (18 yrs & older) Flublok IM Intramuscular Dec 22, 2017 Administered TDAP 0.5mL (Boostrix) IM Intramuscular June 28, 2011 Administe red Influenza (6mo & up) Fluzone IM Intramuscular Nov 30, 2016 Ad ministered Influenza (6mo & up) Fluzone IM Intramuscular Nov 10, 2015 Ad ministered Influenza (6mo & up) Fluzone [...] Notes Total Score: 0 Interpretation: Alcohol Education Uatsdin: Question Answer Notes Uatsdin No jew beliefs that would impact health care. Sexual [...] REASON FOR REFERRAL No Information VITAL SIGNS Weight 155 lbs Feb, Height 5'3" in Feb, BMI 27.45 kg/m2 Feb, Heart Rate 91 /min Feb, Respiratory Rate 16 /min Feb, Temperature 97.5 degrees Fahrenheit Feb, Oximetry 99% Feb, Blood pressure systolic 118 mm Hg Feb, Blood pressure diastolic 80 mm Hg Feb, MEDICATIONS Medication SIG (Take, Route, Frequency, Duration) [...] Orally Twice a day Oct, Active Creon 5827-7063 UNIT 1-2 with meals Orally Jul, Not-Taking Pen [place] 06/28" 31G X 8 MM as directed [...] Diflucan 150 MG 1 tablet Orally once, may repeat in 3 days for 9 Not-Taking Valtrex 500 MG 1 tablet Orally bid for 3 days each episode Active Accu-Chek FastClix Lancets - as directed bid E11.9 26 r2019 Active Vyvanse 40 MG 1 capsule in the morning Orally Once a day Active Accu-Chek Instant Control - as directed In Vitro monthly 2 Apr, Active Symbicort 80-4.5 MCG/ACT 2 puffs Inhalation Twice a day for 90 day(s) Active Hydrocortisone 2.5 % 1 application to affected area Externally q id prn Aug, Active Alcohol Prep 70 % as directed bid E11.9 Apr, Active [place] 10-325 MG 1 tab(s) Orally every 4-6 [...] surgery 2003 Surgical History right rotator cuff 2005 Surgical History left and right ulnar nerve 2011 Surgical History gallbladder removed 2011 Surgical History carpal tunnel right 2012 Surgical History colonoscopy (postive FHx) 2011 Surgical History D&C February Surgical History Angiogram Brain 03-11-2014 Surgical History C4-7 Discectomy and fusion, Dr. Lee in [place] 08/06/2015 Surgical History cystoscopy 04/2018 Hospitalization History Surgically related Goals Section No Information Health Concerns No Information MEDICAL EQUIPMENT No Information MENTAL STATUS No Information FUNCTIONAL STATUS No Information ASSESSMENTS Encounter Date Diagnosis Assessment Notes Treatment Notes Treatm ent Clinical Notes Feb, Viral upper respiratory tract infection (ICD-10 - J06.9) Sxs consistent with viral URI. Discussed supportuve care. Repeat COVID testing. Discussed mandatory quarantine until covid test results back. F/u with pcp in 3- 5 days. ER for new or worsening sxs. Patient educated on diagnosis, medications, treatments, and expected outcomes. Patient educated on risks, SE/AE, benefits, alternatives of regimen. Discussed emergent signs and symptoms and to seek emergency medical attention if they occur. Patient voiced understanding and had all questions answered. Feb, Exacerbation of asthma, unsp ecified asthma severity, unspecified whether persistent (ICD-10 - J45.901) Asthma exacerbation. Will start steroids. Use albuterol inhaler prn. Discussed limiting salt and sugar while on steroids. F/u with PCP in 3-5 days. ER for new or worsening sxs. PLAN OF TREATMENT Medication Medication Name Sig Start Date Stop Date PredniSONE 20 MG 1 tablet Orally Once a day for 5 day(s) Feb, Treatment Notes Assessment Notes Clinical Notes Viral upper respiratory tract infection Sxs consistent with viral URI. Discussed supportuve care. Repeat COVID testing. Discussed mandatory quarantine until covid test results back. F/u with pcp in 3-5 days. ER for new or worsening sxs. Patient educated on diagnosis, medications, treatments, and expected outcomes. Patient educated on risks, SE/AE, benefits, alternatives of regimen. Discussed emergent signs and symptoms and to seek emergency medical attention if they occur. Patient voiced understanding and had all questions answered. Exacerbation of asthma, unspecified asth ma severity, unspecified whether persistent Asthma exacerbation. Will start steroids . Use albuterol inhaler prn. Discussed limiting salt and sugar while on steroids. F/u with PCP in 3-5 days. ER for new or worsening sxs. Treatment Notes Test Name Order Date Coronavirus 2019 NOSE (Send Out) COVID 2020-03-08 Next Appt Details 3-5 days Reason: Provider Name:Joseph Mcdermotth, 2020-06-05 08 :30:00 AM, [address] [place], [address], Insurance Providers Payer Name Payer Address Payer Phone Insured Name Patient Relati onship to Insured Coverage Start Date Coverage End Date NO FAULT [address] [place] [id number] DO SURJIT GROSSMAN self [facility] [address] [address] [facility] [phone] ISAURA GROSSMAN self
--- OUTSIDE RECORDS SUMMARY | 2020-04-07 07:40 | CCD ---
Author Author [facility] Organization [facility] Address Unknown Phone Unavailable Care Team Providers Care Brick Tosser Name Role Phone Joseph Riddle Unavailable PROBLEMS Type Condition ICD9-CM Code [id number] Code Onset Dates Condition S tatus SNOMED Code Notes Problem Type 2 diabetes mellitus without complications E11 .9 Active 278442175 Problem Hypothyroid E03.9 Active 59360936 Problem Hypothyroidism, unspecified E03.9 Active 1119 25364 Problem History of herpes simplex infection Z86.19 Acti ve 943941039 Problem Hearing impairment H91.90 Active 81613373 Problem Generalized osteoarthrosis, involving multiple sites M15.9 Active 914107413 Problem Encounter for routine gynecological examination Z0 1.419 Active 504171554 Problem Memory impairment R41.3 Active 081479402 Problem Migraine, unspecified, not intractable, without status migrainosus G43.909 Active 79854197 Problem Generalized pruritus L29.9 Active 686643099 Problem Other chronic pain G89.29 Active 60717195 Problem Mixed hyperlipidemia E78.2 Active 492153082 Problem Major depressive disorder, single episode, unspecified F32.9 Active 42078508 Problem Fibrocystic breast disease, unspecified laterality N60.19 Active 07078100 Problem Recurrent UTI N39.0 Active 052561486 Problem Rectal prolapse K62.3 Active 39023006 Problem Occipital neuralgia of left side M54.81 Active 89182353 Problem Sinusitis, unspecified chronicity, unspecified location J32.9 Active 94594028 Problem Mild persistent asthma without complication J45.30 Active 042353255 Problem Bladder disorder, unspecified N32.9 Active 42 134762 Problem Unspecified asthma, uncomplicated J45.909 Active 3909626539853 Problem Chronic diarrhea K52.9 Active 804539043 Problem Irritable bowel syndrome with diarrhea K58.0 A ctive 545585801 Problem Chronic pancreatitis, unspecified pancreatitis type K86.1 Active 502485236 Problem Spondylolisthesis at L4-L5 level M43.16 Active 581160437 Problem Primary osteoarthritis, 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 2 Active 300438127 Problem Other polyneuropathy G62.89 Active 31618682 Problem 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 Active 26212769 Problem Exacerbation of asthma, unsp ecified asthma severity, unspecified whether persistent J45.901 Active 176623869 Problem Myalgia and myositis, unspecified M79.1 Active 11790990 Problem Screening for malignant neoplasm of the cervix Z12 .4 Active 139824681 Problem Breast cancer screening by mammogram Z12.31 Act blaise 853291431 Problem Encounter for general adult medical examination without abnormal findings Z00.00 Active 329795103 Problem Family history of colon cancer Z80.0 Active 3 93570646 Problem Irritable bowel syndrome with both constipation and diarrh ea K58.2 Active 14654933 ALLERGIES Allergen (clinical drug ingredient) Drug/Non Drug Allergy do cumented on EMR Reaction Allergy Type Onset Date Status Sulfa (for allergy use only) swelling Non Drug Allergy Active Penicillin (For Allergies Use Only) swelling Drug Allerg y Active ENCOUNTERS from 1958 to 2020-03-11 Encounter Location Date Provider Diagnosis [address] [address] [place] [address] Feb, Joseph Riddle IMMUNIZATIONS Vaccine Route Administration Date Status Influenza [...] Notes Total Score: 0 Interpretation: Alcohol Education Anabaptism: Question Answer Notes Anabaptism No moravian beliefs that would impact health care. Sexual [...] Orally Twice a day Oct, Active Creon 3159-8146 UNIT 1-2 with meals Orally Jul, Not-Taking Pen [place] 5/16" 31G X 8 MM as directed daily [...] % as directed bid E11.9 Apr, Active Accord 10-325 MG 1 tab(s) Orally every 4-6 hrs qid prn pain MDD=4 Dec, Active Alprazolam 1 mg 1 tablet Orally Twice a day prn Active Maxalt 10 MG 1 tablet as needed one time Orally Once a day Active Ajovy 225 MG/1.5ML 1.5 ml Subcutaneous monthly Active PROCEDURES No Information RESULTS No Results REASON FOR VISIT ?COVID shot MEDICAL (GENERAL) HISTORY Type Description Date Medical [...] C4-7 Discectomy and fusion, Dr. Lee in [place] 08/06/2015 Surgical History cystoscopy 04/2018 Hospitalization History Surgically related Goals Section No Information Health Concerns No Information MEDICAL EQUIPMENT No Information MENTAL STATUS No Information FUNCTIONAL STATUS No Information ASSESSMENTS No Information PLAN OF TREATMENT Medication Medication Name Sig Start Date Stop Date PredniSONE 20 MG 1 tablet Orally Once a day for 5 day(s) Feb, Next Appt Details Provider Name:Joseph Luigi Riddle, 2020-06-05 08 :30:00 AM, [address] [place], [address], Insurance Providers Payer Name Payer Address Payer Phone Insured Name Patient Relati onship to Insured Coverage Start Date Coverage End Date [facility] [address] [address] [facility] [phone] ISAURA GROSSMAN self NO FAULT [address] [facility] [id number] DO SURJIT GROSSMAN self
--- OUTSIDE RECORDS SUMMARY | 2020-04-07 07:40 | CCD ---
Author Author [facility] Organization [facility] Address Unknown Phone Unavailable Care Team Providers Care Ship Ceiler Name Role Phone Joseph Riddle Unavailable PROBLEMS Type Condition ICD9-CM Code ZAF18-TE Code Onset Dates Condition S tatus SNOMED Code Notes Problem Mixed hyperlipidemia E78.2 Active 799053299 Problem Hypothyroidism, unspecified E03.9 Active 1115 86685 Problem Type 2 diabetes mellitus without complications E11 .9 Active 039443934 Problem Hearing impairment H91.90 Active 66476567 Problem Hypothyroid E03.9 Active 99822015 Problem 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 Active 54788063 Problem Myalgia and myositis, unspecified M79.1 Active 70462342 Problem Generalized pruritus L29.9 Active 742325629 Problem Other chronic pain G89.29 Active 92896553 Problem Bladder disorder, unspecified N32.9 Active 42 484914 Problem Unspecified asthma, uncomplicated J45.909 Active 2474241492714 Problem Major depressive disorder, single episode, unspecified F32.9 Active 99983417 Problem Migraine, unspecified, not intractable, without status migrainosus G43.909 Active 32546740 Problem Recurrent UTI N39.0 Active 785702541 Problem Screening for malignant neoplasm of the cervix Z12 .4 Active 711402569 Problem Occipital neuralgia of left side M54.81 Active 33755719 Problem Fibrocystic breast disease, unspecified laterality N60.19 Active 36482210 Problem Mild persistent asthma without complication J45.30 Active 370915325 Problem Rectal prolapse K62.3 Active 32338727 Problem Chronic diarrhea K52.9 Active 022207150 Problem Irritable bowel syndrome with diarrhea K58.0 A ctive 395432666 Problem Sinusitis, unspecified chronicity, unspecified location J32.9 Active 19467588 Problem Memory impairment R41.3 Active 889536074 Problem Chronic pancreatitis, unspecified pancreatitis type K86.1 Active 303533660 Problem Spondylolisthesis at L4-L5 level M43.16 Active 473715619 Problem Irritable bowel syndrome with both constipation and diarrh ea K58.2 Active 58335114 Problem Encounter for routine gynecological examination Z0 1.419 Active 353158353 Problem Other polyneuropathy G62.89 Active 05759693 Problem History of herpes simplex infection Z86.19 Acti ve 787583570 Problem Generalized osteoarthrosis, involving multiple sites M15.9 Active 548485975 Problem Primary osteoarthritis, 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 2 Active 892116406 Problem Encounter for general adult medical examination without abnormal findings Z00.00 Active 596263866 Problem Family history of colon cancer Z80.0 Active 3 36419387 Problem Breast cancer screening by mammogram Z12.31 Act blaise 744955657 ALLERGIES Allergen (clinical drug ingredient) Drug/Non Drug Allergy do cumented on EMR Reaction Allergy Type Onset Date Status Sulfa (for allergy use only) swelling Drug Allergy Active Penicillin (For Allergies Use Only) swelling Drug Allerg y Active ENCOUNTERS from 1958 to 2020-03-03 Encounter Location Date Provider Diagnosis [address] [place] [address] 18 Feb, 2020 Joseph Riddle IMMUNIZATIONS Vaccine Route Administration Date [...] Notes Total Score: 0 Interpretation: Alcohol Education Hoahaoism: Question Answer Notes Hoahaoism No orthodox beliefs that would impact health care. Sexual [...] Notes Start Da te End Date Status Valtrex 500 MG 1 tablet Orally bid for 3 days each episode Active Adderall 10 MG 1 tablet Orally Daily Active Atorvastatin Calcium 20 MG 1 tablet Orally Once a day Active Lyrica 150 MG 1 capsule Orally Twice a day Oct, Active [place] 10-325 MG 1 tab(s) Orally every 4-6 hrs qid prn pain MDD=4 Dec, Active Vyvanse 40 MG 1 capsule in the morning Orally Once a day Active Alprazolam 1 mg 1 tablet Orally Twice a day prn Active Sertraline HCl 100 MG one and one half tabs Orally Once a day Nov, Active Linzess 290 MCG 1 capsule at least 30 minute s before the first meal of the day on an empty stomach Orally Once a day Active Metformin HCl 500 mg 1 tab Orally bid Active Ventolin HFA 108 (90 Base) MCG/ACT 2 puffs Inhalation qid prn Active Baclofen 20 MG 1 tablet with food or milk Orally qid prn Active Hydrocortisone 2.5 % 1 application to affected area Externally q id prn Aug, Active Lantus SoloStar 100 UNIT/ML INJECT 24 UNITS SUBCUTANE OUSLY EVERY DAY, OR DIRECTED. Active Maxalt 10 MG 1 tablet as needed one time Orally Once a day Active Accu-Chek Guide - as directed In Vitro bid DX E11.9 26 M 2019 Active Diflucan 150 MG 1 tablet Orally once, may repeat in 3 days for 9 Not-Taking Omeprazole 40 MG TAKE 1 CAPSULE EVERY DAY Active Alcohol Prep 70 % as directed bid E11.9 Apr, Active Nicotine Polacrilex 2 MG 1 lozenge as needed Mouth/Throat 20 rox e(s) a day May, Not-Taking Levothyroxine Sodium 100 MCG 1 tablet on an empty stom ach in the morning Orally Once a day for 30 Not-Taking Jardiance 25 MG TAKE 1 TABLET EVERY DAY Active Ajovy 225 MG/1.5ML 1.5 ml Subcutaneous monthly Active Accu-Chek FastClix Lancets - as directed bid E11.9 26 Ma 2019 Active Pen [place] 5/16" 31G X 8 MM as directed daily June, 3 Active Creon 7473-7494 UNIT 1-2 with meals Orally Jul, Not-Taking Accu-Chek Eliz - as directed May, Acti ve Symbicort 80-4.5 MCG/ACT 2 puffs Inhalation Twice a day for 90 day(s) Active Accu-Chek Instant Control - as directed In Vitro monthly 2 Apr, Active Zyrtec Allergy 10 mg 1 tablet Orally Once a day prn Active PROCEDURES No Information RESULTS No Results REASON FOR VISIT refill request symbicort MEDICAL (GENERAL) HISTORY Type Description Date Medical [...] C4-7 Discectomy and fusion, Dr. Lee in [place] 08/06/2015 Surgical History cystoscopy 04/2018 Hospitalization History Surgically related Goals Section No Information Health Concerns No Information MEDICAL EQUIPMENT No Information MENTAL STATUS No Information FUNCTIONAL STATUS No Information ASSESSMENTS No Information PLAN OF TREATMENT Medication Medication Name Sig Start Date Stop Date [place] 10-325 MG 1 tab(s) Orally every 4-6 hrs qid prn pain MDD=4 15 Dec, 2011 Alprazolam 1 mg 1 tablet Orally Twice a day prn Lyrica 150 MG 1 capsule Orally Twice a day Oct, Metformin HCl 500 mg 1 tab Orally bid Adderall 10 MG 1 tablet Orally Daily Vyvanse 40 MG 1 capsule in the morning Orally Once a day Sertraline HCl 100 MG one and one half tabs Orally Once a day 0 3 Nov, 2015 Linzess 290 MCG 1 capsule at least 30 minute s before the first meal of the day on an empty stomach Orally Once a day Ventolin HFA 108 (90 Base) MCG/ACT 2 puffs Inhalation qid prn Jardiance 25 MG TAKE 1 TABLET EVERY DAY Baclofen 20 MG 1 tablet with food or milk Orally qid prn Accu-Chek Instant Control - as directed In Vitro monthly Apr, Zyrtec Allergy 10 mg 1 tablet Orally Once a day prn Symbicort 80-4.5 MCG/ACT 2 puffs Inhalation Twice a day for 90 d ay(s) Accu-Chek Eliz - as directed May, Hydrocortisone 2.5 % 1 application to affected area External ly qid prn Aug, Lantus SoloStar 100 UNIT/ML INJECT 24 UNITS SUBCUTANE OUSLY EVERY DAY, OR DIRECTED. Ajovy 225 MG/1.5ML 1.5 ml Subcutaneous monthly Maxalt 10 MG 1 tablet as needed one time Orally Once a day Pen [place] 06/28" 31G X 8 MM as directed daily June, Omeprazole 40 MG TAKE 1 CAPSULE EVERY DAY Alcohol Prep 70 % as directed bid E11.9 Apr, Accu-Chek FastClix Lancets - as directed bid E11.9 Apr, 0 Accu-Chek Guide - as directed In Vitro bid DX E11.9 Apr, Valtrex 500 MG 1 tablet Orally bid for 3 days each episode Atorvastatin Calcium 20 MG 1 tablet Orally Once a day Next Appt Details Provider Name:Joseph Riddle, 2020-03-06 02 :00:00 PM, [address] , [place], [address], Provider Name:Joseph Riddle, 2020-06-05 08 :30:00 AM, [address] , [place], [address], Insurance Providers Payer Name Payer Address Payer Phone Insured Name Patient Relati onship to Insured Coverage Start Date Coverage End Date NO FAULT [address] [place] [address] DO SURJIT GROSSMAN self [facility] [address] [address] [facility] [phone] ISAURA GROSSMAN self
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
--- OUTSIDE RECORDS SUMMARY | 2020-04-07 07:43 | CCD ---
Author Author [facility] Organization [facility] Address Unknown Phone Unavailable Care Team Providers Care Power Plant Electrician Name Role Phone JUDE BOUCHER PA Unavailable Unavailable PETRJUDE LEWIS PA Unavailable Unavailable PETROFFSALOE PA Unavailable Unavailable PETROFFSALOE PA Unavailable Unavailable PETRSALO LEWISE PA Unavailable Unavailable PETRSALO LEWISE PA Unavailable Unavailable PETRJUDE LWEIS PA Unavailable Unavailable JUDE BOUCHER PA Unavailable Unavailable Jose M Lee MD Unavailable Unavailable Lee, A Cody MD Unavailable Unavailable Lee, A Cody MD Unavailable Unavailable Lee, A Cody MD Unavailable Unavailable Lee, A Cody MD Unavailable Unavailable Lee, A Cody MD Unavailable Unavailable Lee, A Cody MD Unavailable Unavailable Lee, A Cody MD Unavailable Unavailable Lee, A Cody MD Unavailable Unavailable Lee, A Cody MD Unavailable Unavailable Lee, A Cody MD Unavailable Unavailable Lee, A Cody MD Unavailable Unavailable Lee, A Cody MD Unavailable Unavailable Lee, A Cody MD Unavailable Unavailable Lee, A Cody MD Unavailable Unavailable Lee, A Cody MD Unavailable Unavailable Lee, A Cody MD Unavailable Unavailable Lee, A Cody MD Unavailable Unavailable Lee, A Cody MD Unavailable Unavailable Lee, A Cody MD Unavailable Unavailable Lee, A Cody MD Unavailable Unavailable Lee, A Cody MD Unavailable Unavailable Lee, A Cody MD Unavailable Unavailable Lee, A Cody MD Unavailable Unavailable Lee, A Cody MD Unavailable Unavailable Lee, A Cody MD Unavailable Unavailable Lee, A Cody MD Unavailable Unavailable Lee, A Cody MD Unavailable Unavailable Lee, A Cody MD Unavailable Unavailable Lee, A Cody MD Unavailable Unavailable Lee, A Cody MD Unavailable Unavailable Lee, A Cody MD Unavailable Unavailable Lee, A Cody MD Unavailable Unavailable Lee, A Cody MD Unavailable Unavailable Lee, A Cody MD Unavailable Unavailable Lee, A Cody MD Unavailable Unavailable Lee, A Cody MD Unavailable Unavailable Lee, A Cody MD Unavailable Unavailable Lee, A Cody MD Unavailable Unavailable Lee, A Cody MD Unavailable Unavailable Lee, A Cody MD Unavailable Unavailable Lee, A Cody MD Unavailable Unavailable Lee, A Cody MD Unavailable Unavailable Lee, A Cody MD Unavailable Unavailable Lee, A Cody MD Unavailable Unavailable Lee, A Cody MD Unavailable Unavailable Lee, A Cody MD Unavailable Unavailable Lee, A Cody MD Unavailable Unavailable Lee, A Cody MD Unavailable Unavailable Lee, A Cody MD Unavailable Unavailable Lee, A Cody MD Unavailable Unavailable Lee, A Cody MD Unavailable Unavailable Lee, A Cody MD Unavailable Unavailable Lee, A Cody MD Unavailable Unavailable Lee, A Cody MD Unavailable Unavailable Lee, A Cody MD Unavailable Unavailable Lee, A Cody MD Unavailable Unavailable Lee, A Cody MD Unavailable Unavailable Lee, A Cody MD Unavailable Unavailable Lee, A Cody MD Unavailable Unavailable Lee, A Cody MD Unavailable Unavailable Lee, A Cody MD Unavailable Unavailable Lee, A Cody MD Unavailable Unavailable Lee, A Cody MD Unavailable Unavailable Lee, A Cody MD Unavailable Unavailable Lee, A Cody MD Unavailable Unavailable Lee, A Cody MD Unavailable Unavailable Lee, A Cody MD Unavailable Unavailable Lee, A Cody MD Unavailable Unavailable Lee, A Cody MD Unavailable Unavailable Lee, A Cody MD Unavailable Unavailable Lee, A Cody MD Unavailable Unavailable Lee, A Cody MD Unavailable Unavailable Lee, A Cody MD Unavailable Unavailable Lee, A Cody MD Unavailable Unavailable Lee, A Cody MD Unavailable Unavailable Lee, A Cody MD Unavailable Unavailable Lee, A Cody MD Unavailable Unavailable Lee, A Cody MD Unavailable Unavailable Lee, A Cody MD Unavailable Unavailable Lee, A Cody MD Unavailable Unavailable Lee, A Cody MD Unavailable Unavailable GENOVEVA, IKER PA Unavailable Unavailable GENOVEVA, IKER PA Unavailable Unavailable GENOVEVA, IKER PA Unavailable Unavailable GENOVEVA, IKER PA Unavailable Unavailable GENOVEVA, IKER PA Unavailable Unavailable GENOVEVA, IKER PA Unavailable Unavailable GENOVEVA, IKER PA Unavailable Unavailable GENOVEVA, IKER PA Unavailable Unavailable GENOVEVA, IKER PA Unavailable Unavailable GENOVEVA, IKER PA Unavailable Unavailable GENOVEVA, IKER PA Unavailable Unavailable GENOVEVA, IKER PA Unavailable Unavailable GENOVEVA, IKER PA Unavailable Unavailable GENOVEVA, IKER PA Unavailable Unavailable GENOVEVA, IKER PA Unavailable Unavailable INFO NEEDED, INFO Unavailable Unavailable Lee, A Cody MD Unavailable Unavailable Lee, A Cody MD Unavailable Unavailable Lee, A Cody MD Unavailable Unavailable Lee, A Cody MD Unavailable Unavailable Lee, A Cody MD Unavailable Unavailable Lee, A Cody MD Unavailable Unavailable Lee, A Cody MD Unavailable Unavailable Lee, A Cody MD Unavailable Unavailable Lee, A Cody MD Unavailable Unavailable Lee, A Cody MD Unavailable Unavailable Lee, A Cody MD Unavailable Unavailable Lee, A Cody MD Unavailable Unavailable Lee, A Cody MD Unavailable Unavailable Lee, A Cody MD Unavailable Unavailable Lee, A Cody MD Unavailable Unavailable Lee, A Cody MD Unavailable Unavailable Lee, A Cody MD Unavailable Unavailable Lee, A Cody MD Unavailable Unavailable Lee, A Cody MD Unavailable Unavailable Lee, A Cody MD Unavailable Unavailable Lee, A Cody MD Unavailable Unavailable Lee, A Cody MD Unavailable Unavailable Lee, A Cody MD Unavailable Unavailable Lee, A Cody MD Unavailable Unavailable Lee, A Cody MD Unavailable Unavailable Lee, A Cody MD Unavailable Unavailable Lee, A Cody MD Unavailable Unavailable Lee, A Cody MD Unavailable Unavailable Lee, A Cody MD Unavailable Unavailable Lee, A Cody MD Unavailable Unavailable Lee, A Cody MD Unavailable Unavailable Lee, A Cody MD Unavailable Unavailable Lee, A Cody MD Unavailable Unavailable Lee, A Cody MD Unavailable Unavailable Lee, A Cody MD Unavailable Unavailable Lee, A Cody MD Unavailable Unavailable Lee, A Cody MD Unavailable Unavailable Lee, A Cody MD Unavailable Unavailable Lee, A Cody MD Unavailable Unavailable Lee, A Cody MD Unavailable Unavailable Lee, A Cody MD Unavailable Unavailable Lee, A Cody MD Unavailable Unavailable Lee, A Cody MD Unavailable Unavailable Lee, A Cody MD Unavailable Unavailable Lee, A Cody MD Unavailable Unavailable Lee, A Cody MD Unavailable Unavailable Lee, A Cody MD Unavailable Unavailable Lee, A Cody MD Unavailable Unavailable Lee, A Cody MD Unavailable Unavailable Lee, A Cody MD Unavailable Unavailable Lee, A Cody MD Unavailable Unavailable Lee, A Cody MD Unavailable Unavailable Lee, A Cody MD Unavailable Unavailable Lee, A Cody MD Unavailable Unavailable Lee, A Cody MD Unavailable Unavailable Lee, A Cody MD Unavailable Unavailable Lee, A Cody MD Unavailable Unavailable Lee, A Cody MD Unavailable Unavailable Lee, A Cody MD Unavailable Unavailable Lee, A Cody MD Unavailable Unavailable Lee, A Cody MD Unavailable Unavailable Lee, A Cody MD Unavailable Unavailable Lee, A Cody MD Unavailable Unavailable Lee, A Cody MD Unavailable Unavailable Lee, A Cody MD Unavailable Unavailable Lee, A Cody MD Unavailable Unavailable Lee, A Cody MD Unavailable Unavailable Lee, A Cody MD Unavailable Unavailable Lee, A Cody MD Unavailable Unavailable Lee, A Cody MD Unavailable Unavailable Lee, A Cody MD Unavailable Unavailable Lee, A Cody MD Unavailable Unavailable Lee, A Cody MD Unavailable Unavailable Lee, A Cody MD Unavailable Unavailable Lee, A Cody MD Unavailable Unavailable Lee, A Cody MD Unavailable Unavailable Lee, A Cody MD Unavailable Unavailable Lee, A Cody MD Unavailable Unavailable Lee, A Cody MD Unavailable Unavailable Lee, A Cody MD Unavailable Unavailable Lee, A Cody MD Unavailable Unavailable Lee, A Cody MD Unavailable Unavailable DOROTA, JUAN CARLOS HUMZA PA Unavailable Unavailable DOROTA, JUAN CARLOS HUMZA PA Unavailable Unavailable DOROTA, JUAN CARLOS HUMZA PA Unavailable Unavailable DOROTA, JUAN CARLOS HUMZA PA Unavailable Unavailable DOROTA, JUAN CARLOS HUMZA PA Unavailable Unavailable DOROTA, JUAN CARLOS HUMZA PA Unavailable Unavailable DOROTA, JUAN CARLOS HUMZA PA Unavailable Unavailable DOROTA, JUAN CARLOS HUMZA PA Unavailable Unavailable DOROTA, JUAN CARLOS HUMZA PA Unavailable Unavailable DOROTA, JUAN CARLOS HUMZA PA Unavailable Unavailable DOROTA, JUAN CARLOS HUMZA PA Unavailable Unavailable DOROTA, JUAN CARLOS HUMZA PA Unavailable Unavailable DOROTA, JUAN CARLOS HUMZA PA Unavailable Unavailable DOROTA, JUAN CARLOS HUMZA PA Unavailable Unavailable DOROTA, JUAN CARLOS HUMZA PA Unavailable Unavailable DOROTA, JUAN CARLOS HUMZA PA Unavailable Unavailable DOROTA, JUAN CARLOS HUMZA PA Unavailable Unavailable DOROTA, JUAN CARLOS HUMZA PA Unavailable Unavailable DOROTA, JUAN CARLOS HUMZA PA Unavailable Unavailable DOROTA, JUAN CARLOS HUMZA PA Unavailable Unavailable DOROTA, JUAN CARLOS HUMZA PA Unavailable Unavailable Trickey, J Homa PA Unavailable Unavailable Trickey, J Homa PA Unavailable Unavailable Trickey, J Homa PA Unavailable Unavailable Trickey, J Homa PA Unavailable Unavailable Trickey, J Homa PA Unavailable Unavailable Trickey, J Homa PA Unavailable Unavailable Trickey, J Homa PA Unavailable Unavailable Trickey, J Homa PA Unavailable Unavailable Trickey, J Homa PA Unavailable Unavailable Trickey, J Homa PA Unavailable Unavailable Trickey, J Homa PA Unavailable Unavailable Trickey, J Homa PA Unavailable Unavailable Trickey, J Homa PA Unavailable Unavailable Trickey, J Homa PA Unavailable Unavailable Trickey, J Homa PA Unavailable Unavailable Trickey, J Homa PA Unavailable Unavailable Trickey, J Homa PA Unavailable Unavailable Trickey, J Homa PA Unavailable Unavailable Trickey, J Homa PA Unavailable Unavailable Trickey, J Homa PA Unavailable Unavailable Trickey, J Homa PA Unavailable Unavailable Trickey, J Homa PA Unavailable Unavailable Trickey, J Homa PA Unavailable Unavailable Trickey, J Homa PA Unavailable Unavailable Trickey, J Homa PA Unavailable Unavailable Trickey, J Homa PA Unavailable Unavailable Trickey, J Homa PA Unavailable Unavailable Trickey, J Homa PA Unavailable Unavailable Trickey, J Homa PA Unavailable Unavailable Trickey, J Homa PA Unavailable Unavailable Trickey, J Homa PA Unavailable Unavailable Trickey, J Homa PA Unavailable Unavailable Trickey, J Homa PA Unavailable Unavailable Trickey, J Homa PA Unavailable Unavailable Trickey, J Homa PA Unavailable Unavailable Trickey, J Homa PA Unavailable Unavailable Trickey, J Homa PA Unavailable Unavailable Trickey, J Homa PA Unavailable Unavailable Trickey, J Homa PA Unavailable Unavailable Trickey, J Homa PA Unavailable Unavailable Trickey, J Homa PA Unavailable Unavailable Trickey, J Homa PA Unavailable Unavailable Trickey, J Homa PA Unavailable Unavailable Trickey, J Homa PA Unavailable Unavailable Trickey, J Homa PA Unavailable Unavailable Trickey, J Homa PA Unavailable Unavailable Trickey, J Homa PA Unavailable Unavailable Trickey, J Homa PA Unavailable Unavailable JIL ISIDRO MD Unavailable Unavailable SANNAJIL RAY MD Unavailable Unavailable SANNAJIL JAY MD Unavailable Unavailable SANNAJIL JAY MD Unavailable Unavailable SANNAJIL JAY MD Unavailable Unavailable SANNAJIL JAY MD Unavailable Unavailable SANNAJIL RAY MD Unavailable Unavailable SANNAJIL RAY MD Unavailable Unavailable SANNAJIL RAY MD Unavailable Unavailable SANNAJIL RAY MD Unavailable Unavailable SANNAJIL RAY MD Unavailable Unavailable JIL ISIDRO MD Unavailable Unavailable JIL ISIDRO MD Unavailable Unavailable SANNAJIL RAY MD Unavailable Unavailable JIL ISIDRO MD Unavailable Unavailable JIL ISIDRO MD Unavailable Unavailable JIL ISIDRO MD Unavailable Unavailable JIL ISIDRO MD Unavailable Unavailable JIL ISIDRO MD Unavailable Unavailable JIL ISIDRO MD Unavailable Unavailable JIL ISIDRO MD Unavailable Unavailable JIL ISIDRO MD Unavailable Unavailable JIL ISIDRO MD Unavailable Unavailable JIL ISIDRO MD Unavailable Unavailable JIL ISIDRO MD Unavailable Unavailable JIL ISIDRO MD Unavailable Unavailable SANNAJIL RAY MD Unavailable Unavailable JIL ISIDRO MD Unavailable Unavailable JIL ISIDRO MD Unavailable Unavailable JIL ISIDRO MD Unavailable Unavailable JIL ISIDRO MD Unavailable Unavailable JIL ISIDRO MD Unavailable Unavailable JIL ISIDRO MD Unavailable Unavailable JIL ISIDRO MD Unavailable Unavailable JIL ISIDRO MD Unavailable Unavailable JIL ISIDRO MD Unavailable Unavailable JIL ISIDRO MD Unavailable Unavailable SANNAJIL RAY MD Unavailable Unavailable SANNAJIL RAY MD Unavailable Unavailable SANNAJIL RAY MD Unavailable Unavailable SANNAJIL RAY MD Unavailable Unavailable SANNAJIL RAY MD Unavailable Unavailable SANNAJIL RAY MD Unavailable Unavailable JIL ISIDRO MD Unavailable Unavailable JIL ISIDRO MD Unavailable Unavailable JIL ISIDRO MD Unavailable Unavailable JIL ISIDRO MD Unavailable Unavailable JIL ISIDRO MD Unavailable Unavailable JIL ISIDRO MD Unavailable Unavailable JIL ISIDRO MD Unavailable Unavailable JIL ISIDRO MD Unavailable Unavailable JIL ISIDRO MD Unavailable Unavailable JIL ISIDRO MD Unavailable Unavailable JIL ISIDRO MD Unavailable Unavailable JIL ISIDRO MD Unavailable Unavailable JIL ISIDRO MD Unavailable Unavailable JIL ISIDRO MD Unavailable Unavailable Kayla Stephenson MD Unavailable Unavailable Kayla Stephenson MD Unavailable Unavailable Kayla Stephenson MD Unavailable Unavailable Kayla Stephenson MD Unavailable Unavailable Kayla Stephenson MD Unavailable Unavailable Kayla Stephenson MD Unavailable Unavailable Kayla Stephenson MD Unavailable Unavailable Kayla Stephenson MD Unavailable Unavailable Kayla Stephenson MD Unavailable Unavailable Kayla Stephenson MD Unavailable Unavailable Kayla Stephenson MD Unavailable Unavailable Kayla Stephenson MD Unavailable Unavailable Kayla Stephenson MD Unavailable Unavailable Kayla Stephenson MD Unavailable Unavailable Kayla Stephenson MD Unavailable Unavailable Kayla Stephenson MD Unavailable Unavailable Kayla Stephenson MD Unavailable Unavailable Kayla Stephenson MD Unavailable Unavailable Kayla Stephenson MD Unavailable Unavailable Kayla Stephenson MD Unavailable Unavailable Kayla Stephenson MD Unavailable Unavailable Kayla Stephenson MD Unavailable Unavailable Kayla Stephenson MD Unavailable Unavailable Kayla Stephenson MD Unavailable Unavailable Kayla Stephenson MD Unavailable Unavailable Kayla Stephenson MD Unavailable Unavailable Kayla Stephenson MD Unavailable Unavailable Kayla Stephenson MD Unavailable Unavailable Kayla Stephenson MD Unavailable Unavailable Kayla Stephenson MD Unavailable Unavailable Kayla Stephenson MD Unavailable Unavailable Kayla Stephenson MD Unavailable Unavailable Kayla Stephenson MD Unavailable Unavailable Kayla Stephenson MD Unavailable Unavailable Kayla Stephenson MD Unavailable Unavailable Kayla Stephenson MD Unavailable Unavailable Kayla Stephenson MD Unavailable Unavailable Kayla Stephenson MD Unavailable Unavailable Kayla Stephenson MD Unavailable Unavailable Kayla Stephenson MD Unavailable Unavailable Kayla Stephenson MD Unavailable Unavailable Kayla Stephenson MD Unavailable Unavailable aKyla Stephenson MD Unavailable Unavailable Kayla Stephenson MD Unavailable Unavailable Kayla Stephenson MD Unavailable Unavailable Kayla Stephenson MD Unavailable Unavailable Kayla Stephenson MD Unavailable Unavailable Kayla Stephenson MD Unavailable Unavailable Kayla Stephenson MD Unavailable Unavailable Kayla Stephenson MD Unavailable Unavailable Kayla Stephenson MD Unavailable Unavailable Kayla Stephenson MD Unavailable Unavailable Kayla Stephenson MD Unavailable Unavailable Kayla Stephenson MD Unavailable Unavailable Kayla Stephenson MD Unavailable Unavailable Kayla Stephenson MD Unavailable Unavailable Kayla Stephenson MD Unavailable Unavailable Kayla Stephenson MD Unavailable Unavailable Kayla Stephenson MD Unavailable Unavailable Kayla Stephenson MD Unavailable Unavailable Kayla Stephenson MD Unavailable Unavailable Kayla Stephenson MD Unavailable Unavailable Kayla Stephenson MD Unavailable Unavailable Kayla Stephenson MD Unavailable Unavailable Kayla Stephenson MD Unavailable Unavailable Kayla Stephenson MD Unavailable Unavailable Kayla Stephenson MD Unavailable Unavailable Kayla Stephenson MD Unavailable Unavailable Kayla Stephenson MD Unavailable Unavailable Kayla Stephenson MD Unavailable Unavailable Kayla Stephenson MD Unavailable Unavailable Kayla Stephenson MD Unavailable Unavailable Kayla Stephenson MD Unavailable Unavailable Kayla Stephenson MD Unavailable Unavailable Kayla Stephenson MD Unavailable Unavailable Kayla Stephenson MD Unavailable Unavailable Kayla Stephenson MD Unavailable Unavailable Kayla Stephenson MD Unavailable Unavailable Kayla Stephenson MD Unavailable Unavailable Kayla Stephenson MD Unavailable Unavailable Kayla Stephenson MD Unavailable Unavailable Kayla Stephenson MD Unavailable Unavailable Kayla Stephenson MD Unavailable Unavailable Kayla Stephenson MD Unavailable Unavailable Kayla Stephenson MD Unavailable Unavailable Kayla Stephenson MD Unavailable Unavailable Kayla Stephenson MD Unavailable Unavailable Kayla Stephenson MD Unavailable Unavailable Kayla Stephenson MD Unavailable Unavailable Kayla Stephenson MD Unavailable Unavailable Kayla Stephenson MD Unavailable Unavailable Kayla Stephenson MD Unavailable Unavailable Kayla Stephenson MD Unavailable Unavailable Kayla Stephenson MD Unavailable Unavailable AKBAR, J NELSON PA Unavailable Unavailable AKBAR, J NELSON PA Unavailable Unavailable AKBAR, J NELSON PA Unavailable Unavailable AKBAR, J NELSON PA Unavailable Unavailable AKBAR, J NELSON PA Unavailable Unavailable AKBAR, J NELSON PA Unavailable Unavailable AKBAR, J NELSON PA Unavailable Unavailable AKBAR, J NELSON PA Unavailable Unavailable AKBAR, J NELSON PA Unavailable Unavailable AKBAR, J NELSON PA Unavailable Unavailable AKBAR, J NELSON PA Unavailable Unavailable AKBAR, J NELSON PA Unavailable Unavailable AKBAR, J NELSON PA Unavailable Unavailable AKBAR, J NELSON PA Unavailable Unavailable AKBAR, J NELSON PA Unavailable Unavailable AKBAR, J NELSON PA Unavailable Unavailable AKBAR, J NELSON PA Unavailable Unavailable AKBAR, J NELSON PA Unavailable Unavailable AKBAR, J NELSON PA Unavailable Unavailable AKBAR, J NELSON PA Unavailable Unavailable AKBAR, J NELSON PA Unavailable Unavailable AKBAR, J NELSON PA Unavailable Unavailable AKBAR, J NELSON PA Unavailable Unavailable AKBAR, J NELSON PA Unavailable Unavailable AKBAR, J NELSON PA Unavailable Unavailable AKBAR, J NELSON PA Unavailable Unavailable AKBAR, J NELSON PA Unavailable Unavailable Luigi Riddle MD Unavailable Unavailable Luigi Riddle MD Unavailable Unavailable Luigi Riddle MD Unavailable Unavailable Luigi Riddle MD Unavailable Unavailable Luigi Riddle MD Unavailable Unavailable Luigi Riddle MD Unavailable Unavailable Luigi Riddle MD Unavailable Unavailable Luigi Riddle MD Unavailable Unavailable Luigi Riddle MD Unavailable Unavailable Luigi Riddle MD Unavailable Unavailable Luigi Riddle MD Unavailable Unavailable Luigi Riddle MD Unavailable Unavailable Luigi Riddle MD Unavailable Unavailable Luigi Riddle MD Unavailable Unavailable Luigi Riddle MD Unavailable Unavailable Luigi Riddle MD Unavailable Unavailable Luigi Riddle MD Unavailable Unavailable Luigi Riddle MD Unavailable Unavailable Luigi Riddle MD Unavailable Unavailable Luigi Riddle MD Unavailable Unavailable Luigi Riddle MD Unavailable Unavailable Luigi Riddle MD Unavailable Unavailable Luigi Riddle MD Unavailable Unavailable Luigi Riddle MD Unavailable Unavailable Luigi Riddle MD Unavailable Unavailable Luigi Riddle MD Unavailable Unavailable Luigi Riddle MD Unavailable Unavailable Luigi Riddle MD Unavailable Unavailable Luigi Riddle MD Unavailable Unavailable Luigi Riddle MD Unavailable Unavailable Luigi Riddle MD Unavailable Unavailable Luigi Riddle MD Unavailable Unavailable Luigi Riddle MD Unavailable Unavailable Luigi Riddle MD Unavailable Unavailable Luigi Riddle MD Unavailable Unavailable Luigi Riddle MD Unavailable Unavailable Luigi Riddle MD Unavailable Unavailable Luigi Riddle MD Unavailable Unavailable Luigi Riddle MD Unavailable Unavailable Luigi Riddle MD Unavailable Unavailable Luigi Riddle MD Unavailable Unavailable Luigi Riddle MD Unavailable Unavailable Luigi Riddle MD Unavailable Unavailable Luigi Riddle MD Unavailable Unavailable Luigi Riddle MD Unavailable Unavailable Luigi Riddle MD Unavailable Unavailable Luigi Riddle MD Unavailable Unavailable Luigi Riddle MD Unavailable Unavailable Luigi Riddle MD Unavailable Unavailable Luigi Riddle MD Unavailable Unavailable Luigi Riddle MD Unavailable Unavailable Luigi Riddle MD Unavailable Unavailable Luigi Riddle MD Unavailable Unavailable Luigi Riddle MD Unavailable Unavailable Luiig Riddle MD Unavailable Unavailable Luigi Riddle MD Unavailable Unavailable Luigi Riddle MD Unavailable Unavailable Luigi Riddle MD Unavailable Unavailable Luigi Riddle MD Unavailable Unavailable Luigi Riddle MD Unavailable Unavailable Luigi Riddle MD Unavailable Unavailable Luigi Riddle MD Unavailable Unavailable Luigi Riddle MD Unavailable Unavailable Luigi Riddle MD Unavailable Unavailable Luigi Riddle MD Unavailable Unavailable Luigi Riddle MD Unavailable Unavailable Luigi Riddle MD Unavailable Unavailable Luigi Riddle MD Unavailable Unavailable Luigi Riddle MD Unavailable Unavailable Luigi Riddle MD Unavailable Unavailable Luigi Riddle MD Unavailable Unavailable Luigi Riddle MD Unavailable Unavailable SYMENOW, G CHRISTOPHER PA Unavailable Unavailable SYMENOW, G CHRISTOPHER PA Unavailable Unavailable SYMENOW, G CHRISTOPHER PA Unavailable Unavailable SYMENOW, G CHRISTOPHER PA Unavailable Unavailable SYMENOW, G CHRISTOPHER PA Unavailable Unavailable SYMENOW, G CHRISTOPHER PA Unavailable Unavailable SYMENOW, G CHRISTOPHER PA Unavailable Unavailable SYMENOW, G CHRISTOPHER PA Unavailable Unavailable SYMENOW, G CHRISTOPHER PA Unavailable Unavailable SYMENOW, G CHRISTOPHER PA Unavailable Unavailable SYMENOW, G CHRISTOPHER PA Unavailable Unavailable SYMENOW, G CHRISTOPHER PA Unavailable Unavailable SYMENOW, G CHRISTOPHER PA Unavailable Unavailable SYMENOW, G CHRISTOPHER PA Unavailable Unavailable SYMENOW, G CHRISTOPHER PA Unavailable Unavailable SYMENOW, G CHRISTOPHER PA Unavailable Unavailable SYMENOW, G CHRISTOPHER PA Unavailable Unavailable Lu, W Grace RPA-C Unavailable Unavailable Lu, W Grace RPA-C Unavailable Unavailable Lu, W Grace RPA-C Unavailable Unavailable Lu, W Grace RPA-C Unavailable Unavailable Lu, W Grace RPA-C Unavailable Unavailable Lu, W Grace RPA-C Unavailable Unavailable Lu, W Grace RPA-C Unavailable Unavailable Lu, W Grace RPA-C Unavailable Unavailable Lu, W Grace RPA-C Unavailable Unavailable Lu, W Grace RPA-C Unavailable Unavailable Lu, W Grace RPA-C Unavailable Unavailable Lu, W Grace RPA-C Unavailable Unavailable Lu, W Grace RPA-C Unavailable Unavailable Lu, W Grace RPA-C Unavailable Unavailable Lu, W Grace RPA-C Unavailable Unavailable Lu, W Grace RPA-C Unavailable Unavailable Trickey, J Homa PA Unavailable Unavailable Trickey, J Homa PA Unavailable Unavailable Trickey, J Homa PA Unavailable Unavailable Trickey, J Homa PA Unavailable Unavailable Trickey, J Homa PA Unavailable Unavailable Trickey, J Homa PA Unavailable Unavailable Trickey, J Homa PA Unavailable Unavailable Trickey, J Homa PA Unavailable Unavailable Trickey, J Homa PA Unavailable Unavailable Trickey, J Homa PA Unavailable Unavailable Trickey, J Homa PA Unavailable Unavailable Trickey, J Homa PA Unavailable Unavailable Trickey, J Homa PA Unavailable Unavailable Trickey, J Homa PA Unavailable Unavailable Trickey, J Homa PA Unavailable Unavailable Trickey, J Homa PA Unavailable Unavailable Trickey, J Homa PA Unavailable Unavailable Trickey, J Homa PA Unavailable Unavailable Trickey, J Homa PA Unavailable Unavailable Trickey, J Homa PA Unavailable Unavailable Trickey, J Homa PA Unavailable Unavailable Trickey, J Homa PA Unavailable Unavailable Trickey, J Homa PA Unavailable Unavailable Trickey, J Homa PA Unavailable Unavailable Trickey, J Homa PA Unavailable Unavailable Trickey, J Homa PA Unavailable Unavailable Trickey, J Homa PA Unavailable Unavailable Trickey, J Homa PA Unavailable Unavailable Trickey, J Homa PA Unavailable Unavailable Trickey, J Homa PA Unavailable Unavailable Trickey, J Homa PA Unavailable Unavailable Trickey, J Homa PA Unavailable Unavailable Trickey, J Homa PA Unavailable Unavailable Trickey, J Homa PA Unavailable Unavailable Trickey, J Homa PA Unavailable Unavailable Trickey, J Homa PA Unavailable Unavailable Trickey, J Homa PA Unavailable Unavailable Trickey, J Homa PA Unavailable Unavailable Trickey, J Homa PA Unavailable Unavailable Trickey, J Homa PA Unavailable Unavailable Trickey, J Homa PA Unavailable Unavailable Trickey, J Homa PA Unavailable Unavailable Trickey, J Homa PA Unavailable Unavailable Trickey, J Homa PA Unavailable Unavailable Trickey, J Homa PA Unavailable Unavailable Trickey, J Homa PA Unavailable Unavailable Trickey, J Homa PA Unavailable Unavailable Trickey, J Homa PA Unavailable Unavailable Roman Jung MD Unavailable Unavailable Roman Jung MD Unavailable Unavailable Roman Jung MD Unavailable Unavailable Roman Jung MD Unavailable Unavailable Roman Jung MD Unavailable Unavailable Roman Jung MD Unavailable Unavailable Roman Jung MD Unavailable Unavailable Roman Jung MD Unavailable Unavailable Roman Jung MD Unavailable Unavailable Roman Jung MD Unavailable Unavailable Roman Jung MD Unavailable Unavailable Roman Jung MD Unavailable Unavailable Roman Jung MD Unavailable Unavailable Roman Jung MD Unavailable Unavailable Roman Jung MD Unavailable Unavailable Roman Jung MD Unavailable Unavailable Roman Jung MD Unavailable Unavailable Roman Jung MD Unavailable Unavailable Roman Jung MD Unavailable Unavailable Roman Jung MD Unavailable Unavailable Roman Jung MD Unavailable Unavailable Roman Jung MD Unavailable Unavailable Roman Jung MD Unavailable Unavailable Roman Jung MD Unavailable Unavailable Roman Jung MD Unavailable Unavailable Roman Jung MD Unavailable Unavailable Roman Jung MD Unavailable Unavailable Luigi Riddle MD Unavailable Unavailable Luigi Riddle MD Unavailable Unavailable Luigi Riddle MD Unavailable Unavailable Luigi Riddle MD Unavailable Unavailable Luigi Riddle MD Unavailable Unavailable Luigi Riddle MD Unavailable Unavailable Luigi Riddle MD Unavailable Unavailable Luigi Riddle MD Unavailable Unavailable Luigi Riddle MD Unavailable Unavailable Luigi Riddle MD Unavailable Unavailable Luigi Riddle MD Unavailable Unavailable Luigi Riddle MD Unavailable Unavailable Luigi Riddle MD Unavailable Unavailable Luigi Riddle MD Unavailable Unavailable Luigi Riddle MD Unavailable Unavailable Luigi Riddle MD Unavailable Unavailable Luigi Riddle MD Unavailable Unavailable Luigi Riddle MD Unavailable Unavailable Luigi Riddle MD Unavailable Unavailable Luigi Riddle MD Unavailable Unavailable Luigi Riddle MD Unavailable Unavailable Luigi Riddle MD Unavailable Unavailable Luigi Riddle MD Unavailable Unavailable Luigi Riddle MD Unavailable Unavailable Luigi Riddle MD Unavailable Unavailable Luigi Riddle MD Unavailable Unavailable Luigi Riddle MD Unavailable Unavailable Luigi Riddle MD Unavailable Unavailable Luigi Riddle MD Unavailable Unavailable Luigi Riddle MD Unavailable Unavailable Luigi Riddle MD Unavailable Unavailable Luigi Riddle MD Unavailable Unavailable Luigi Riddle MD Unavailable Unavailable Luigi Riddle MD Unavailable Unavailable Luigi Riddle MD Unavailable Unavailable Luigi Riddle MD Unavailable Unavailable Luigi Riddle MD Unavailable Unavailable Luigi Riddle MD Unavailable Unavailable Luigi Riddle MD Unavailable Unavailable Luigi Riddle MD Unavailable Unavailable Luigi Riddle MD Unavailable Unavailable Luigi Riddle MD Unavailable Unavailable Luigi Riddle MD Unavailable Unavailable Luigi Riddle MD Unavailable Unavailable Luigi Riddle MD Unavailable Unavailable Luigi Riddle MD Unavailable Unavailable Luigi Riddle MD Unavailable Unavailable Luigi Riddle MD Unavailable Unavailable Luigi Riddle MD Unavailable Unavailable Luigi Riddle MD Unavailable Unavailable Luigi Riddle MD Unavailable Unavailable Luigi Riddle MD Unavailable Unavailable Luigi Riddle MD Unavailable Unavailable Luigi Riddle MD Unavailable Unavailable Luigi Riddle MD Unavailable Unavailable Luigi Riddle MD Unavailable Unavailable Luigi Riddle MD Unavailable Unavailable Luigi Riddle MD Unavailable Unavailable Luigi Riddle MD Unavailable Unavailable Luigi Riddle MD Unavailable Unavailable Luigi Riddle MD Unavailable Unavailable Luigi Riddle MD Unavailable Unavailable Luigi Riddle MD Unavailable Unavailable Luigi Riddle MD Unavailable Unavailable Luigi Riddle MD Unavailable Unavailable Luigi Riddle MD Unavailable Unavailable Luigi Riddle MD Unavailable Unavailable Luigi Riddle MD Unavailable Unavailable Luigi Riddle MD Unavailable Unavailable Luigi Riddle MD Unavailable Unavailable Luigi Riddle MD Unavailable Unavailable Luigi Riddle MD Unavailable Unavailable ASHLEY, M LISBET PA Unavailable Unavailable ASHLEY, M LISBET PA Unavailable Unavailable ASHLEY, M LISBET PA Unavailable Unavailable ASHLEY, M LISBET PA Unavailable Unavailable ASHLEY, M LISBET PA Unavailable Unavailable ASHLEY, M LISBET PA Unavailable Unavailable ASHLEY, M LISBET PA Unavailable Unavailable ASHLEY, M LISBET PA Unavailable Unavailable ASHLEY, M LISBET PA Unavailable Unavailable ASHLEY, M LISBET PA Unavailable Unavailable ASHLEY, M LISBET PA Unavailable Unavailable ASHLEY, M LISBET PA Unavailable Unavailable ASHLEY, M LISBET PA Unavailable Unavailable ASHLEY, M LISBET PA Unavailable Unavailable ASHLEY, M LISBET PA Unavailable Unavailable ASHLEY, M LISBET PA Unavailable Unavailable ASHLEY, M LISBET PA Unavailable Unavailable ASHLEY, M LISBET PA Unavailable Unavailable ASHLEY, M LISBET PA Unavailable Unavailable ASHLEY, M LISBET PA Unavailable Unavailable ASHLEY, M LISBET PA Unavailable Unavailable ASHLEY, M LISBET PA Unavailable Unavailable ASHLEY, M LISBET PA Unavailable Unavailable ASHLEY, M LISBET PA Unavailable Unavailable Luigi Riddle MD Unavailable Unavailable Luigi Riddle MD Unavailable Unavailable Luigi Riddle MD Unavailable Unavailable Luigi Riddle MD Unavailable Unavailable Luigi Riddle MD Unavailable Unavailable Luigi Riddle MD Unavailable Unavailable Luigi Riddle MD Unavailable Unavailable Luigi Riddle MD Unavailable Unavailable Luigi Riddle MD Unavailable Unavailable Luigi Riddle MD Unavailable Unavailable Luigi Riddle MD Unavailable Unavailable Luigi Riddle MD Unavailable Unavailable Luigi Riddle MD Unavailable Unavailable Luigi Riddle MD Unavailable Unavailable Luigi Riddle MD Unavailable Unavailable Luigi Riddle MD Unavailable Unavailable Luigi Riddle MD Unavailable Unavailable Luigi Riddle MD Unavailable Unavailable Luigi Riddle MD Unavailable Unavailable Luigi Riddle MD Unavailable Unavailable Luigi Riddle MD Unavailable Unavailable Luigi Riddle MD Unavailable Unavailable Luigi Riddle MD Unavailable Unavailable Luigi Riddle MD Unavailable Unavailable Luigi Riddle MD Unavailable Unavailable Luigi Riddle MD Unavailable Unavailable Luigi Riddle MD Unavailable Unavailable Luigi Riddle MD Unavailable Unavailable Luigi Riddle MD Unavailable Unavailable Luigi Riddle MD Unavailable Unavailable Luigi Riddle MD Unavailable Unavailable Luigi Riddle MD Unavailable Unavailable Luigi Riddle MD Unavailable Unavailable Luigi Riddle MD Unavailable Unavailable Luigi Riddle MD Unavailable Unavailable Luigi Riddle MD Unavailable Unavailable Luigi Riddle MD Unavailable Unavailable Luigi Riddle MD Unavailable Unavailable Luigi Riddle MD Unavailable Unavailable Luigi Riddle MD Unavailable Unavailable Luigi Riddle MD Unavailable Unavailable Luigi Riddel MD Unavailable Unavailable Luigi Riddle MD Unavailable Unavailable Luigi Riddle MD Unavailable Unavailable Luigi Riddle MD Unavailable Unavailable Luigi Riddle MD Unavailable Unavailable Luigi Riddle MD Unavailable Unavailable Luigi Riddle MD Unavailable Unavailable Luigi Riddle MD Unavailable Unavailable Luigi Riddle MD Unavailable Unavailable Luigi Riddle MD Unavailable Unavailable Luigi Riddle MD Unavailable Unavailable Luigi Riddle MD Unavailable Unavailable uLigi Riddle MD Unavailable Unavailable Luigi Riddle MD Unavailable Unavailable Luigi Riddle MD Unavailable Unavailable Luigi Riddle MD Unavailable Unavailable Luigi Riddle MD Unavailable Unavailable Luigi Riddle MD Unavailable Unavailable Luigi Riddle MD Unavailable Unavailable Luigi Riddle MD Unavailable Unavailable Luigi Riddle MD Unavailable Unavailable Luigi Riddle MD Unavailable Unavailable Luigi Riddle MD Unavailable Unavailable Luigi Riddle MD Unavailable Unavailable Luigi Riddle MD Unavailable Unavailable Luigi Riddle MD Unavailable Unavailable Luigi Riddle MD Unavailable Unavailable Luigi Riddle MD Unavailable Unavailable Luigi Riddle MD Unavailable Unavailable Luigi Riddle MD Unavailable Unavailable Luigi Riddle MD Unavailable Unavailable DUKES, W GIOVANNA PA Unavailable Unavailable DUKES, W GIOVANNA PA Unavailable Unavailable DUKES, W GIOVANNA PA Unavailable Unavailable DUKES, W GIOVANNA PA Unavailable Unavailable DUKES, W GIOVANNA PA Unavailable Unavailable DUKES, W GIOVANNA PA Unavailable Unavailable DUKES, W GIOVANNA PA Unavailable Unavailable DUKES, W GIOVANNA PA Unavailable Unavailable DUKES, W GIOVANNA PA Unavailable Unavailable DUKES, W GIOVANNA PA Unavailable Unavailable DUKES, W GIOVANNA PA Unavailable Unavailable DUKES, W GIOVANNA PA Unavailable Unavailable DUKES, W GIOVANNA PA Unavailable Unavailable DUKES, W GIOVANNA PA Unavailable Unavailable DUKES, W GIOVANNA PA Unavailable Unavailable DUKES, W GIOVANNA PA Unavailable Unavailable DUKES, W GIOVANNA PA Unavailable Unavailable DUKES, W GIOVANNA PA Unavailable Unavailable DUKES, W GIOVANNA PA Unavailable Unavailable DUKES, W GIOVANNA PA Unavailable Unavailable DUKES, W GIOVANNA PA Unavailable Unavailable DUKES, W GIOVANNA PA Unavailable Unavailable DUKES, W GIOVANNA PA Unavailable Unavailable DUKES, W GIOVANNA PA Unavailable Unavailable DUKES, W GIOVANNA PA Unavailable Unavailable DUKES, W GIOVANNA PA Unavailable Unavailable DUKES, W GIOVANNA PA Unavailable Unavailable DUKES, W GIOVANNA PA Unavailable Unavailable DUKES, W GIOVANNA PA Unavailable Unavailable DUKES, W GIOVANNA PA Unavailable Unavailable DUKES, W GIOVANNA PA Unavailable Unavailable DUKES, W GIOVANNA PA Unavailable Unavailable DUKES, W GIOVANNA PA Unavailable Unavailable DUKES, W GIOVANNA PA Unavailable Unavailable DUKES, W GIOVANNA PA Unavailable Unavailable DUKES, W GIOVANNA PA Unavailable Unavailable DUKES, W GIOVANNA PA Unavailable Unavailable DUKES, W GIOVANNA PA Unavailable Unavailable DUKES, W GIOVANNA PA Unavailable Unavailable DUKES, W GIOVANNA PA Unavailable Unavailable DUKES, W GIOVANNA PA Unavailable Unavailable DUKES, W GIOVANNA PA Unavailable Unavailable DUKES, W GIOVANNA PA Unavailable Unavailable DUKES, W GIOVANNA PA Unavailable Unavailable DUKES, W GIOVANNA PA Unavailable Unavailable DUKES, W GIOVANNA PA Unavailable Unavailable SABRINA LUIS MD Unavailable Unavailable SABRINA LUIS MD Unavailable Unavailable SABRINA LUIS MD Unavailable Unavailable SABRINA LUIS MD Unavailable Unavailable SABRINA LUIS MD Unavailable Unavailable SABRINA LUIS MD Unavailable Unavailable SABRINA LUIS MD Unavailable Unavailable SABRINA LUIS MD Unavailable Unavailable SABRINA LUIS MD Unavailable Unavailable SABRINA LUIS MD Unavailable Unavailable SABRINA LUIS MD Unavailable Unavailable SABRINA LUIS MD Unavailable Unavailable SABRINA LUIS MD Unavailable Unavailable SABRINA LUIS MD Unavailable Unavailable SABRINA LUIS MD Unavailable Unavailable SABRINA LUIS MD Unavailable Unavailable SABRINA LUIS MD Unavailable Unavailable SABRINA LUIS MD Unavailable Unavailable SABRINA LUIS MD Unavailable Unavailable SABRINA LUIS MD Unavailable Unavailable SABRINA LUIS MD Unavailable Unavailable SABRINA LUIS MD Unavailable Unavailable SABRINA LUIS MD Unavailable Unavailable SABRINA LUIS MD Unavailable Unavailable SABRINA LUIS MD Unavailable Unavailable SABRINA LUIS MD Unavailable Unavailable SABRINA LUIS MD Unavailable Unavailable SABRINA LUIS MD Unavailable Unavailable SABRINA LUIS MD Unavailable Unavailable SABRINA LUIS MD Unavailable Unavailable SABRINA LUIS MD Unavailable Unavailable SABRINA LUIS MD Unavailable Unavailable SABRINA LUIS MD Unavailable Unavailable SABRINA LUIS MD Unavailable Unavailable REINSABRINA AZUL MD Unavailable Unavailable REINDL, SABRINA FLORES Unavailable Unavailable REINDL, SABRINA FLORES Unavailable Unavailable REINDL, SABRINA FLORES Unavailable Unavailable REINDL, SABRINA FLORES Unavailable Unavailable REINDL, SABRINA FLORES Unavailable Unavailable REINDL, SABRINA FLORES Unavailable Unavailable REINDL, SABRINA FLORES Unavailable Unavailable REINDL, SABRINA FLORES Unavailable Unavailable REINDL, SABRINA FLORES Unavailable Unavailable Yovani, Meir Dillon MD Unavailable Unavailable Yovani, Meir Dillon MD Unavailable Unavailable Yovani, Meir Dillon MD Unavailable Unavailable Yovani, Meir Dillon MD Unavailable Unavailable Yovani, Meir Dillon MD Unavailable Unavailable Yovani, Meir Dillon MD Unavailable Unavailable Yovani, Meir Dillon MD Unavailable Unavailable Yovani, Meir Dillon MD Unavailable Unavailable Yovani, Meir Dillon MD Unavailable Unavailable Yovani, Meir Dillon MD Unavailable Unavailable Yovani, Meir Dillon MD Unavailable Unavailable Yovani, Meir Dillon MD Unavailable Unavailable Yovani, Meir Dillon MD Unavailable Unavailable Yovani, Meir Dillon MD Unavailable Unavailable Yovani, Meir Dillon MD Unavailable Unavailable Yovani, Meir Dillon MD Unavailable Unavailable Yovani, Meir Dillon MD Unavailable Unavailable Yovani, Meir Diloln MD Unavailable Unavailable Yovani, Meir Dillon MD Unavailable Unavailable Yovani, Meir Dillon MD Unavailable Unavailable Yovani, Meir Dillon MD Unavailable Unavailable Yovani, Meir Dillon MD Unavailable Unavailable Yovani, Meir Dillon MD Unavailable Unavailable Yovani, Meir Dillon MD Unavailable Unavailable Yovani, Meir Dillon MD Unavailable Unavailable Yovani, Mier Dillon MD Unavailable Unavailable Yovani, Meir Dillon MD Unavailable Unavailable Yovani, Meir Dillon MD Unavailable Unavailable Yovani, Meir Dillon MD Unavailable Unavailable Yovani, Meir Dillon MD Unavailable Unavailable Yovani, Meir Dillon MD Unavailable Unavailable Yovani, Meir Dillon MD Unavailable Unavailable Yovani, Meir Dillon MD Unavailable Unavailable Yovani, Meir Dillon MD Unavailable Unavailable Yovani, Meir Dillno MD Unavailable Unavailable Yovani, Meir Dillon MD Unavailable Unavailable Yovani, Meir Dillon MD Unavailable Unavailable Yovani, Meir Dillon MD Unavailable Unavailable Yovani, Meir Dillon MD Unavailable Unavailable Yovani, Meir Dillon MD Unavailable Unavailable Yovani, Meir Dillon MD Unavailable Unavailable Yovani, Meir Dillon MD Unavailable Unavailable Yovnai, Meir Dillon MD Unavailable Unavailable Yovani, Meir Dillon MD Unavailable Unavailable Yovani, Meir Dillon MD Unavailable Unavailable Yovani, Meir Dillon MD Unavailable Unavailable Yovani, Meir Dillon MD Unavailable Unavailable Yovani, Meir Dillon MD Unavailable Unavailable Yovani, Meir Dillon MD Unavailable Unavailable Yovani, Meir Dillon MD Unavailable Unavailable Yovani, Meir Dillon MD Unavailable Unavailable Yovani, Meir Dillon MD Unavailable Unavailable Yovani, Meir Dillon MD Unavailable Unavailable Yovani, Meir Dillon MD Unavailable Unavailable Yovani, Meir Dillon MD Unavailable Unavailable Yovani, Meir Dillon MD Unavailable Unavailable Yovani, Meir Dillon MD Unavailable Unavailable Yovani, Meir Dillon MD Unavailable Unavailable Yovani, Meir Dillon MD Unavailable Unavailable Yovani, Meir Dillon MD Unavailable Unavailable Yovani, Meir Dillon MD Unavailable Unavailable Yovani, Meir Dillon MD Unavailable Unavailable Yovani, Meir Dillon MD Unavailable Unavailable Yovani, Meir Dillon MD Unavailable Unavailable AKBAR, J NELSON PA Unavailable Unavailable AKBAR, J NELSON PA Unavailable Unavailable AKBAR, J NELSON PA Unavailable Unavailable AKBAR, J NELSON PA Unavailable Unavailable AKBAR, J NELSON PA Unavailable Unavailable AKBAR, J NELSON PA Unavailable Unavailable AKBAR, J NELSON PA Unavailable Unavailable AKBAR, J NELSON PA Unavailable Unavailable AKBAR, J NELSON PA Unavailable Unavailable AKBAR, J NELSON PA Unavailable Unavailable AKBAR, J NELSON PA Unavailable Unavailable AKBAR, J NELSON PA Unavailable Unavailable AKBAR, J NELSON PA Unavailable Unavailable AKBAR, J NELSON PA Unavailable Unavailable AKBAR, J NELSON PA Unavailable Unavailable AKBAR, J NELSON PA Unavailable Unavailable AKBAR, J NELSON PA Unavailable Unavailable AKBAR, J NELSON PA Unavailable Unavailable AKBAR, J NELSON PA Unavailable Unavailable AKBAR, J NELSON PA Unavailable Unavailable AKBAR, J NELSON PA Unavailable Unavailable AKBAR, J NELSON PA Unavailable Unavailable AKBAR, J NELSON PA Unavailable Unavailable AKBAR, J NELSON PA Unavailable Unavailable AKBAR, J NELSON PA Unavailable Unavailable AKBAR, J NESLON PA Unavailable Unavailable AKBAR, J NELSON PA Unavailable Unavailable Lee, Jose M Ross MD Unavailable Unavailable Lee, Jose M Ross MD Unavailable Unavailable Lee, Jose M Ross MD Unavailable Unavailable Lee, Jose M Ross MD Unavailable Unavailable Lee, Jose M Ross MD Unavailable Unavailable Lee, Jose M Ross MD Unavailable Unavailable Lee, Jose M Ross MD Unavailable Unavailable Lee, Jose M Ross MD Unavailable Unavailable Lee, Jsoe M Ross MD Unavailable Unavailable Lee, Jose M Ross MD Unavailable Unavailable Lee, Jose M Ross MD Unavailable Unavailable Lee, Jose M Ross MD Unavailable Unavailable Lee, Jose M Ross MD Unavailable Unavailable Lee, Jose M Ross MD Unavailable Unavailable Lee, A Cody MD Unavailable Unavailable Lee, A Cody MD Unavailable Unavailable Lee, A Cody MD Unavailable Unavailable Lee, A Cody MD Unavailable Unavailable Lee, A Cody MD Unavailable Unavailable Lee, A Cody MD Unavailable Unavailable Lee, A Cody MD Unavailable Unavailable Lee, A Cody MD Unavailable Unavailable Lee, A Cody MD Unavailable Unavailable Lee, A Cody MD Unavailable Unavailable Lee, A Cody MD Unavailable Unavailable Lee, A Cody MD Unavailable Unavailable Lee, A Cody MD Unavailable Unavailable Lee, A Cody MD Unavailable Unavailable Lee, A Cody MD Unavailable Unavailable Lee, A Cody MD Unavailable Unavailable Lee, A Cody MD Unavailable Unavailable Lee, A Cody MD Unavailable Unavailable Lee, A Cody MD Unavailable Unavailable Lee, A Cody MD Unavailable Unavailable Lee, A Cody MD Unavailable Unavailable Lee, A Cody MD Unavailable Unavailable Lee, A Cody MD Unavailable Unavailable Lee, A Cody MD Unavailable Unavailable Lee, A Cody MD Unavailable Unavailable Lee, A Cody MD Unavailable Unavailable Lee, A Cody MD Unavailable Unavailable Lee, A Cody MD Unavailable Unavailable Lee, A Cody MD Unavailable Unavailable Lee, A Cody MD Unavailable Unavailable Lee, A Cody MD Unavailable Unavailable Lee, A Cody MD Unavailable Unavailable Lee, A Cody MD Unavailable Unavailable Lee, A Cody MD Unavailable Unavailable Lee, A Cody MD Unavailable Unavailable Lee, A Cody MD Unavailable Unavailable Lee, A Cody MD Unavailable Unavailable Lee, A Cody MD Unavailable Unavailable Lee, A Cody MD Unavailable Unavailable Lee, A Cody MD Unavailable Unavailable Lee, A Cody MD Unavailable Unavailable Lee, A Cody MD Unavailable Unavailable Lee, A Cody MD Unavailable Unavailable Lee, A Cody MD Unavailable Unavailable Lee, A Cody MD Unavailable Unavailable Lee, A Cody MD Unavailable Unavailable Lee, A Cody MD Unavailable Unavailable Lee, A Cody MD Unavailable Unavailable Lee, A Cody MD Unavailable Unavailable Lee, A Cody MD Unavailable Unavailable Lee, A Cody MD Unavailable Unavailable Lee, A Cody MD Unavailable Unavailable Lee, A Cody MD Unavailable Unavailable Lee, A Cody MD Unavailable Unavailable Lee, A Cody MD Unavailable Unavailable Lee, A Cody MD Unavailable Unavailable Lee, A Cody MD Unavailable Unavailable Lee, A Cody MD Unavailable Unavailable Lee, A Cody MD Unavailable Unavailable Lee, A Cody MD Unavailable Unavailable Lee, A Cody MD Unavailable Unavailable Lee, A Cody MD Unavailable Unavailable Ele, A Cody MD Unavailable Unavailable Lee, A Cody MD Unavailable Unavailable Lee, Jose M Ross MD Unavailable Unavailable Lee, Jose M Ross MD Unavailable Unavailable Lee, Jose M Ross MD Unavailable Unavailable Lee, Jose M Ross MD Unavailable Unavailable ANDI CRUZ Unavailable Unavailable HUIZENGA, Luigi PARK DO Unavailable Unavailable HUIZENGA, Luigi PARK DO Unavailable Unavailable HUIZENGA, Luigi PARK DO Unavailable Unavailable HUIZENGA, Luigi PARK DO Unavailable Unavailable HUIZENGA, Luigi PARK DO Unavailable Unavailable HUIZENGA, Luigi PARK DO Unavailable Unavailable HUIZENGA, Luigi PARK DO Unavailable Unavailable HUIZENGA, Luigi PARK DO Unavailable Unavailable HUIZENGA, Luigi PARK DO Unavailable Unavailable HUIZENGA, Luigi PARK DO Unavailable Unavailable HUIZENGA, Luigi PARK DO Unavailable Unavailable HUIZENGA, Luigi PARK DO Unavailable Unavailable HUIZENGA, Luigi PARK DO Unavailable Unavailable HUIZENGA, Luigi PARK DO Unavailable Unavailable HUIZENGA, Luigi PARK DO Unavailable Unavailable HUIZENGA, Luigi PARK DO Unavailable Unavailable HUIZENGA, Luigi PARK DO Unavailable Unavailable HUIZENGA, Luigi PARK DO Unavailable Unavailable HUIZENGA, Luigi PARK DO Unavailable Unavailable HUIZENGA, Luigi PARK DO Unavailable Unavailable HUIZENGA, Luigi PARK DO Unavailable Unavailable HUIZENGA, Luigi PARK DO Unavailable Unavailable HUIZENGA, Luigi PARK DO Unavailable Unavailable HUIZENGA, Luigi PARK DO Unavailable Unavailable HUIZENGA, Luigi PARK DO Unavailable Unavailable HUIZENGA, Luigi PARK DO Unavailable Unavailable HUIZENGA, Luigi PARK DO Unavailable Unavailable HUIZENGA, Luigi PARK DO Unavailable Unavailable HUIZENGA, Luigi PARK DO Unavailable Unavailable HUIZENGA, Luigi PARK DO Unavailable Unavailable HUIZENGA, Luigi PARK DO Unavailable Unavailable HUIZENGA, Luigi PARK DO Unavailable Unavailable HUIZENGA, Luigi PARK DO Unavailable Unavailable HUIZENGA, Luigi PARK DO Unavailable Unavailable HUIZENGA, Luigi PARK DO Unavailable Unavailable HUIZENGA, Luigi PARK DO Unavailable Unavailable HUIZENGA, Luigi PARK DO Unavailable Unavailable HUIZENGA, Luigi PARK DO Unavailable Unavailable HUIZENGA, Luigi PARK DO Unavailable Unavailable HUIZENGA, Luigi PARK DO Unavailable Unavailable HUIZENGA, Luigi PARK DO Unavailable Unavailable HUIZENGA, Luigi PARK DO Unavailable Unavailable HUIZENGA, Luigi PARK DO Unavailable Unavailable HUIZENGA, Luigi PARK DO Unavailable Unavailable HUIZENGA, Luigi PARK DO Unavailable Unavailable HUIZENGA, Luigi PARK DO Unavailable Unavailable HUIZENGA, Luigi PARK DO Unavailable Unavailable HUIZENGA, Luigi PARK DO Unavailable Unavailable HUIZENGA, Luigi PARK DO Unavailable Unavailable HUIZENGA, Luigi PARK DO Unavailable Unavailable HUIZENGA, Luigi PARK DO Unavailable Unavailable HUIZENGA, Luigi PARK DO Unavailable Unavailable HUIZENGA, Luigi PARK DO Unavailable Unavailable HUIZENGA, Luigi PARK DO Unavailable Unavailable HUIZENGA, Luigi PARK DO Unavailable Unavailable HUIZENGA, Luigi PARK DO Unavailable Unavailable HUIZENGA, Luigi PARK DO Unavailable Unavailable HUIZENGA, Luigi PARK DO Unavailable Unavailable HUIZENGA, Luigi PARK DO Unavailable Unavailable HUIZENGA, Luigi PARK DO Unavailable Unavailable HUIZENGA, Luigi PARK DO Unavailable Unavailable HUIZENGA, Luigi PARK DO Unavailable Unavailable HUIZENGA, Luigi PARK DO Unavailable Unavailable HUIZENGA, Luigi PARK DO Unavailable Unavailable HUIZENGA, Luigi PARK DO Unavailable Unavailable HUIZENGA, Luigi PARK DO Unavailable Unavailable HUIZENGA, Luigi PARK DO Unavailable Unavailable HUIZENGA, Luigi PARK DO Unavailable Unavailable HUIZENGA, Luigi PARK DO Unavailable Unavailable HUIZENGA, Luigi PARK DO Unavailable Unavailable HUIZENGA, Luigi PARK DO Unavailable Unavailable HUIZENGA, Luigi PARK DO Unavailable Unavailable HUIZENGA, Luigi PARK DO Unavailable Unavailable Cabrales, Erin LEAD SYSTEMS ANALYST Unavailable Unavailable [place]es, Erin LEAD SYSTEMS ANALYST Unavailable Unavailable [place], Erin LEAD SYSTEMS ANALYST Unavailable Unavailable [place], Erin LEAD SYSTEMS ANALYST Unavailable Unavailable [place], Erin LEAD SYSTEMS ANALYST Unavailable Unavailable [place], Erin LEAD SYSTEMS ANALYST Unavailable Unavailable [place], Erin LEAD SYSTEMS ANALYST Unavailable Unavailable [place]es, Erin LEAD SYSTEMS ANALYST Unavailable Unavailable Cabrales, Erin LEAD SYSTEMS ANALYST Unavailable Unavailable Cabrales, Erin LEAD SYSTEMS ANALYST Unavailable Unavailable Cabrales, Erin LEAD SYSTEMS ANALYST Unavailable Unavailable Cabrales, Erin LEAD SYSTEMS ANALYST Unavailable Unavailable Cabrales, Erin LEAD SYSTEMS ANALYST Unavailable Unavailable Cabrales, Erin LEAD SYSTEMS ANALYST Unavailable Unavailable Cabrales, Erin LEAD SYSTEMS ANALYST Unavailable Unavailable Cabrales, Erin LEAD SYSTEMS ANALYST Unavailable Unavailable Cabrales, Erin LEAD SYSTEMS ANALYST Unavailable Unavailable Cabrales, Erin LEAD SYSTEMS ANALYST Unavailable Unavailable Cabrales, Erin LEAD SYSTEMS ANALYST Unavailable Unavailable Cabrales, Erin LEAD SYSTEMS ANALYST Unavailable Unavailable Cabrales, Erin LEAD SYSTEMS ANALYST Unavailable Unavailable Cabrales, Erin LEAD SYSTEMS ANALYST Unavailable Unavailable Cabrales, Erin LEAD SYSTEMS ANALYST Unavailable Unavailable Cabrales, Erin LEAD SYSTEMS ANALYST Unavailable Unavailable Cabrales, Erin LEAD SYSTEMS ANALYST Unavailable Unavailable Cabrales, Erin LEAD SYSTEMS ANALYST Unavailable Unavailable Cabrales, Erin LEAD SYSTEMS ANALYST Unavailable Unavailable Cabrales, Erin LEAD SYSTEMS ANALYST Unavailable Unavailable Cabrales, Erin LEAD SYSTEMS ANALYST Unavailable Unavailable Cabrales, Erin LEAD SYSTEMS ANALYST Unavailable Unavailable Cabrales, Erin LEAD SYSTEMS ANALYST Unavailable Unavailable Cabrales, Erin LEAD SYSTEMS ANALYST Unavailable Unavailable Cabrales, Erin LEAD SYSTEMS ANALYST Unavailable Unavailable Cabrales, Erin LEAD SYSTEMS ANALYST Unavailable Unavailable Cabrales, Erin LEAD SYSTEMS ANALYST Unavailable Unavailable Cabrales, Erin LEAD SYSTEMS ANALYST Unavailable Unavailable Re-disclosure Warning The records that you are about to access may contain information from federally-assisted alcohol or drug abuse programs. If such information is present, then the following federally mandated warning applies: This information has been disclosed to you from records protected by federal confidentiality rules (42 CFR part 2). The federal rules prohibit you from making any further disclosure of this information unless further disclosure is expressly permitted by the written consent of the person to whom it pertains or as otherwise permitted by 42 CFR part 2. A general authorization for the release of medical or other information is NOT sufficient for this purpose. The Federal rules restrict any use of the information to criminally investigate or prosecute any alcohol or drug abuse patient.The records that you are about to access may contain highly sensitive health information, the redisclosure of which is protected by Article 27-F of the [facility] Public Health law. If you continue you may have access to information: Regarding HIV / AIDS; Provided by facilities licensed or operated by the [facility] Office of Mental Health; or Provided by the [facility] Office for People With Developmental Disabilities. If such information is present, then the following [facility] mandated warning applies: This information has been disclosed to you from confidential records which are protected by state law. State law prohibits you from making any further disclosure of this information without the specific written consent of the person to whom it pertains, or as otherwise permitted by law. Any unauthorized further disclosure in violation of state law may result in a fine or mcfp sentence or both. A general authorization for the release of medical or other information is NOT sufficient authorization for further disc losure. Allergies and Adverse Reactions Type Description Substance Reaction Status Data Source(s ) CLASS SULFA (sulfonamide) SULFA (sulfonamide) SWELLING [facility] CLASS PCN (penicillin) PCN (penicillin) SWELLING [facility] DRUG INGREDI GABAPENTIN GABAPENTIN Other [facility] Drug Class MORPHINE AND RELATED MORPHINE AND RELATED Nausea [facility] Drug allergy Penicillin (For Allergies Use Only) Drug allergy swellin g Active eCW1 ([facility]) Sulfa (for allergy use only) Sulfa (for allergy use only) Pedraza lfa (for allergy use only) swelling Active eCW1 ([facility]) Sulfa (for allergy use only) Sulfa (for allergy use only) Pedraza lfa (for allergy use only) swelling Active eCW1 ([facility]) Family History Family Member Name Family Member Gender Family Member Status Date o f Status Description Data Source(s) Unknown Unknown Problem MEDENT ([facility]) Encounters Encounter Providers Location Date Indications Data Source(s ) Outpatient Attender: Cody Lee MD 06/30/2020 12:00:00 AM [facility] Preadmit Attender: INFO INFO NEEDED 04/08/2020 01:31:00 PM [facility] Outpatient Attender: NELSON AKBAR PAConsultant: Joseph Riddle MD 03/31/2020 09:41:00 AM [facility] 03/31/2020 09:41:00 AM [facility] Outpatient Attender: NELSON ANDRADE Family Practice 03/31 08:40:00 AM EST MEDENT ([facility] Outpatient Attender: Cody Lee MD [id number] 03/19/2020 12:00 :00 AM EST Spondylosis without myelopathy or radiculopathy, cervical region [facility] Spondylosis without myelopathy or radicu lopathy, cervical region Office Visit Attender: Homa ANDRADE Main office - [facility] 03/18/2020 07:30:00 AM EST MED[facility] ([facility] [place] [address] [facility] [address] 03/11/2020 12:00:00 AM EST eCW1 ([facility]) [place] [address] [facility] [facility] [address] 03/09/2020 12:00:00 AM EST eCW1 ([facility]) [place] [address] [facility] [address] 03/04/2020 12:00:00 AM EST eCW1 ([facility]) Unknown [address] [facility] [address] 03/04/2020 12:00:00 AM EST eCW1 ([facility]) [place] [address] [facility] [address] 03/02/2020 12:00:00 AM EST eCW1 ([facility]) Emergency Attender: JUDE Younger: Joseph Riddle MD EMERGENCY ROOM-ER 02/28/2020 06:29:00 PM EST - 02/28/2020 10:08:00 PM [facility] Patient discharged. Office Visit Attender: Homa ANDRADE [facility] 02/12/2020 08:15:00 AM EST [facility] [place] [address] [facility] [address] 02/06/2020 12:00:00 AM EST eCW1 ([facility]) Outpatient Attender: Homa ANDRADE [facility] 02/05/2020 10:00:00 AM EST MEDENT ([facility], ) Outpatient Attender: NELSON AKBAR PAConsultant: Josehp Riddle MD 12/31/2019 10:25:00 AM EST - 12/31/2019 10:25:00 AM EST [facility] Outpatient Attender: NELSON ANDRADE Family Practice 12/30 09:20:00 AM EST MED[facility] ([facility] Outpatient Attender: SABRINA Chu/Kalin/Luigi/Tenzin azul 12/25/2019 01:45:00 PM EST MEDENT ([facility]) Emergency Attender: IKER Camposerrer: Joseph Riddle MD 12/16/2019 10:03:00 AM EST - 12/16/2019 10:15:00 AM [facility] Patient discharged. Outpatient Attender: Homa ANDRADE Main office - [facility] n 12/03/2019 09:30:00 AM EDT MEDENT ([facility] MEL Vogt) [place] [address] [facility] [address] 11/29/2019 12:00:00 AM EDT eCW1 ([facility]) Emergency Attender: RAIN PACHECO PAReferrer: Joseph cameron MD 11/17/2019 09:08:00 PM EDT - 11/17/2019 10:28:00 PM EDT [facility] Patient discharged. Outpatient Attender: Homa ANDRADE Main office - [facility] n 10/14/2019 11:45:00 AM EDT MEDENT ([facility] Ranjana marquez, MEL) Outpatient Attender: NELSON ANDRADE Family Practice 10/02 04:40:00 PM EDT MED[facility] ([facility] Outpatient Attender: NELSON AKBAR PAConsultant: Joseph Riddle MD 10/03/2019 04:29:00 PM EDT - 10/03/2019 04:29:00 PM EDT [facility] [address] [facility] [address] 10/03/2019 12:00:00 AM EDT eCW1 ([facility]) Outpatient Attender: Joseph Riddle MDReferrer: Joseph Riddle MD 08/21/2019 01:00:00 PM EDT - 08/21/2019 01:00:00 PM EDT [facility] Outpatient Attender: NELSON Troy chavez: Wilmer Jung MDConsultant: Joseph Riddle MD 07/24/2019 11:40:00 AM EDT - 07/24/2019 11:40:00 AM EDT [facility] Outpatient Attender: NELSON ANDRADE Family Practice 07/23 11:20:00 AM EDT MED[facility] ([facility]) Outpatient Attender: JIL ISIDRO MD [facility] 07/23/2019 10:20:00 AM EDT [facility] ([facility] [address] [address] 07/09/2019 12:00:00 AM EDT eCW1 ([facility]) Outpatient Attender: Homa ANDRADE [facility] 07/04/2019 10:30:00 AM EDT MEDENT ([facility] ) Outpatient Attender: Sheeba Stephenson MDReferrer: Joseph Riddle MD 06/28/2019 11:02:49 AM EDT [facility] [address] [address] 06/25/2019 12:00:00 AM EDT eCW1 ([facility]) Recurring Patient Referrer: Joseph Riddle MD 06/24/2019 09:32: 35 AM EDT [facility] Recurring Patient Referrer: Joseph Riddle MD 06/24/2019 09:32: 18 AM EDT [facility] Recurring Patient Referrer: Joseph Riddle MD 06/24/2019 09:32: 09 AM EDT [facility] Recurring Patient Referrer: Joseph Riddle MD 06/17/2019 12:33: 19 PM EDT [facility] [address] [address] 06/03/2019 12:00:00 AM EDT eCW1 ([facility]) [address] [address] 05/30/2019 12:00:00 AM EDT eCW1 ([facility]) Recurring Patient Referrer: Joseph Riddle MD 05/22/2019 03:12: 13 PM EDT [facility] Recurring Patient Referrer: Joseph Riddle MD 05/22/2019 02:14: 58 PM EDT [facility] Recurring Patient Referrer: Joseph Riddle MD 05/22/2019 02:14: 45 PM EDT [facility] [address], [facility] [address] 05/22/2019 12:00:00 AM EDT eCW1 ([facility]) [address] [address] 05/22/2019 12:00:00 AM EDT eCW1 ([facility] [place] [address] [address] 05/16/2019 12:00:00 AM EDT [facility]CW1 ([facility] [place] [address] [address] 05/13/2019 12:00:00 AM EDT eCW1 ([facility] [place] [address] [address] 05/09/2019 12:00:00 AM EDT eCW1 ([facility] [place] [address] [address] 05/08/2019 12:00:00 AM EDT eCW1 [facility]) Outpatient Attender: NELSON ANDRADE Family Practice 04/22 11:20:00 AM EDT [facility] Outpatient Attender: NELSON Troy chavez: Wilmer Jung MDConsultant: Joseph Riddle MD 04/23/2019 11:03:00 AM EDT - 04/23/2019 11:03:00 AM EDT [facility] Outpatient Referrer: Cody Lee MD 04/15/2019 04:09:00 PM EST [facility] [address] [address] 04/11/2019 12:00:00 AM EST eCW1 ([facility]) [address] [address] 04/11/2019 12:00:00 AM EST eCW1 ([facility]) Outpatient Attender: LISBET ANDRADE 03/30/2019 01:40:[address] [address] 03/26/2019 12:00:00 AM EST eCW1 ([facility]) [place] [address] [facility] [address] 03/07/2019 12:00:00 AM EST eCW1 ([facility]) Outpatient Attender: Homa CASTILLOeferrer: Joseph Riddle MD EMERGENCY ROOM-LABOTHPRO 01/06/2019 10:24:00 AM EST - 01/06/2019 10:24:00 AM [facility] Emergency Attender: HUMZA Diaz AAttender: SHEEBA CRUZReferrer: Joseph Riddle MD EMERGENCY ROOM-ER 08/17/2018 11:29:00 AM EDT - 08/17/2018 03:27:00 PM [facility] Outpatient Attender: XAVIER OTOOLE DO 04/13 08:56:00 AM EDT - 04/23/2018 08:56:00 AM [facility] Emergency Attender: RAIN ANDRADE EMERGENCY ROOM- ER 03/23/2018 07:21:00 PM EST - 03/23/2018 11:50:00 PM [facility] Outpatient Attender: Joseph Riddle MD 8 01:15:00 PM [facility] - 12/22/2017 01:15:00 PM [facility] Outpatient Attender: Santana Pina MD 02/28/2017 01:32: 00 PM [facility] Outpatient Attender: Joseph Riddle MD 02/17/2017 10:00:00 AM [facility] Emergency Attender: JUDE ANDRADE EMERGENCY ROOM-ER 08/14 03:09:00 AM EDT - 08/25/2016 07:02:00 PM [facility] Emergency Attender: RAIN ANDRADE EMERGENCY ROOM- ER 04/22/2016 07:38:00 AM EST - 04/20/2016 12:17:00 AM [facility] Outpatient Attender: Cody Lee MD 03/22/2016 10:10:00 AM [facility] Outpatient Attender: Joseph Riddle MD 02/24/2016 09:15:00 AM [facility] Emergency Attender: HUMZA ANDRADE EMERGENCY ROOM-ER 10/01/2015 10:26:00 PM EDT - 08/09/2015 05:11:00 PM [facility] Emergency Attender: HUMZA ANDRADE EMERGENCY ROOM-ER 09/24/2015 10:37:00 AM EDT - 09/23/2015 11:56:00 PM [facility] Outpatient Attender: Cody Lee MD 08/25/2015 07:22:00 AM [facility] Outpatient Attender: Erin Keron GEORGEP 01/20/2015 09:44:00 AM [facility] Emergency Attender: Grace KEBEDE EMERGENCY ROOM-ER 0 11/08/2014 09:35:00 PM EDT - 11/09/2014 12:48:00 AM [facility] Outpatient Attender: Joseph Riddle MD 01/17/2013 10:36:00 AM [facility] Emergency Attender: GIOVANNA ANDRADE 09/2012 07:00:00 PM EST - 12/21/2012 07:34:00 PM [facility] Medications Medication Brand Name Start Date Product Form Dose Route Admi nistrative Instructions Pharmacy Instructions Status Indications Reaction Description Data Source(s) 10-325 mg 04/06/2020 12:00:00 AM EST tablet 180 TAKE 1 TABLET BY MOUTH EVERY 4 HOURS MAXIMUM DAILY DOSE = 6 TABLETS TAKE 1 TABLET BY MOUTH EVERY 4 HOURS MAXIMUM DAILY DOSE = 6 TABLETS SOLD: 04/06/2020 [facility] 150 mg 04/06/2020 12:00:00 AM EST capsule 60 TAKE 1 CAPSULE BY MOUTH TWO TIMES A DAY MAXIMUM DAILY DOSE = 2 CAPSULES TAKE 1 CAPSULE BY MOUTH TWO TIMES A DAY MAXIMUM DAILY DOSE = 2 CAPSULES SOLD: 04/06/2020 [facility] 100 mg 03/22/2020 12:00:00 AM EST tablet extended release 60 TAKE ONE TABLET BY MOUTH TWICE A DAY TAKE ONE TABLET BY MOUTH TWICE A DAY SOLD: 03/24/2020 [facility] 40 mg 03/22/2020 12:00:00 AM EST capsule 30 TAKE ONE CAPSULE BY MOUTH EVERY DAY MAXIMUM DAILY DOSE = 1 CAPSULE TAKE ONE CAPSULE BY MOUTH EVERY DAY MAXI MUM DAILY DOSE = 1 CAPSULE SOLD: 03/24/2020 [facility] 50 mg 03/22/2020 12:00:00 AM EST tablet 90 TAKE 1-3 TABLETS BY MOUTH AT BEDTIME NEEDED TAKE 1-3 TABLETS BY MOUTH AT BEDTIME NEEDED SOLD: 03/24/2020 [facility] 12 HR Orphenadrine Citrate 100 MG Extend ed Release Oral Tablet Orphenadrine Citrate ER 100 MG Oral Tablet Extended Release 12 Hour (NORFLEX) Orphenadrine Citrate ER 100 MG Oral Tablet Extended Release 12 Hour (NORFLEX) 03/19/2020 12:00:00 AM EST 100 mg Oral active Cervical spondyl osis Take 1 tablet by mouth Two Times Daily for 60 doses [facility] Cervical spondylosis Diclofenac Sodium 50 MG Delayed Release Oral Tablet Diclofenac Sodium 50 MG Oral Tablet Delayed Release (VOLTAREN) Diclofenac Sodium 50 MG Oral Tablet Eden yed Release (VOLTAREN) 03/19/2020 12:00:00 AM EST 50 mg Oral active Cervical spondylosis Take 1 tablet by mouth Two Times Daily [facility] Cervical spondylosis 4 mg/0.5 mL 03/19/2020 12:00:00 AM EST pen injector 2 INJECT ONE SYRINGE UNDER THE SKIN FOR MIGRAINE THAT AWAKENS FROM SLEEP, MAY REPEAT ONCE IN 2 HOURS INJECT ONE SYRINGE UNDER THE SKIN FOR MIGRAINE THAT AWAKENS FROM SLEEP, MAY REPEAT ONCE IN 2 HOURS SOLD: 03/24/2020 [facility] 140 mg/mL 03/18/2020 12:00:00 AM EST auto-injector 1 INJECT 1 SYRINGE UNDER THE SKIN ONCE A MONTH INJECT 1 SYRINGE UNDER THE SKIN ONCE A MONTH SOLD: 03/24/2020 [facility] rizatriptan 10 MG Disintegrating Oral Tablet RIZATRIPTAN RAVIN ZOATE 03/18/2020 12:00:00 AM EST tablet,disintegrating 12 DISSOLVE 1 TABLET ON THE TONGUE ONCE AT THE ONSET OF HEADACHE MAY REPEAT ONCE IN 2 HOURS DISSOLVE 1 TABLET ON THE TONGUE ONCE AT THE ONSET OF HEADACHE MAY REPEAT ONCE IN 2 HOURS SOLD: 03/24/2020 [facility] 150 mg 03/06/2020 12:00:00 AM EST capsule 60 TAKE 1 CAPSULE BY MOUTH 2 TIMES A DAY MAXIMUM DAILY DOSE = 2 TAKE 1 CAPSULE BY MOUTH 2 TIMES A DAY MA XIMUM DAILY DOSE = 2 SOLD: 03/06/2020 [facility] 10-325 mg 03/06/2020 12:00:00 AM EST tablet 180 TAKE 1 TABLET BY MOUTH EVERY 4 HOURS MAXIMUM DAILY DOSE = 6 TAKE 1 TABLET BY MOUTH EVERY 4 HOURS MAX IMUM DAILY DOSE = 6 SOLD: 03/06/2020 [facility] 1,250 mcg (50,000 unit) 03/04/2020 12:00:00 AM EST capsule 3 TAKE 1 CAPSULE BY MOUTH ONCE EVERY 10 DAYS TAKE 1 CAPSULE BY MOUTH ONCE EVERY 10 DAYS SOLD: 03/06/2020 [facility] 20 mg 03/04/2020 12:00:00 AM EST tablet 5 TAKE 1 TABLET BY MOUTH ONCE A DAY TAKE 1 TABLET BY MOUTH ONCE A DAY SOLD: 03/04/2020 [facility] Prednisone 20 MG Oral Tablet PredniSONE 20 MG PredniSONE 20 MG 03/04/2020 12:00:00 AM EST 1.0 {tablet} active Pr edniSONE 20 MG eCW1 ([facility]) Prednisone 20 MG Oral Tablet PredniSONE 20 MG PredniSONE 20 MG 03/04/2020 12:00:00 AM EST 1.0 {tablet} active Pr edniSONE 20 MG eCW1 ([facility]) Prednisone 20 MG Oral Tablet PredniSONE 20 MG PredniSONE 20 MG 03/04/2020 12:00:00 AM EST 1.0 {tablet} active Pr edniSONE 20 MG eCW1 ([facility]) Prednisone 20 MG Oral Tablet PredniSONE 20 MG PredniSONE 20 MG 03/04/2020 12:00:00 AM EST 1.0 {tablet} active Pr edniSONE 20 MG eCW1 ([facility]) linaclotide 0.29 MG Oral Capsule [Linzess] Linzess 290 MCG Oral Capsule Linzess 290 MCG Oral Capsule 02/24/2020 12:00:00 AM EST active TAKE ONE CAPSULE BY MOUTH ONCE DAILY ON AN EMPTY STOMACH FOR IBS [facility] 40 mg 02/18/2020 12:00:00 AM EST capsule 30 TAKE ONE CAPSULE BY MOUTH EVERY DAY MAXIMUM DAILY DOSE = 1 TAKE ONE CAPSULE BY MOUTH EVERY DAY MAXI MUM DAILY DOSE = 1 SOLD: 02/22/2020 [facility] 50 mg 02/12/2020 12:00:00 AM EST tablet 90 TAKE 1-3 TABLETS BY MOUTH AT BEDTIME NEEDED FOR SLEEP MAXIMUM DAILY DOSE = 3 TAKE 1-3 TABLETS BY MOUTH AT BEDTIME NEEDED FOR SLEEP MAXIMUM DAILY DOSE = 3 SOLD: 02/13/2020 [facility] Baclofen 20 MG Oral Tablet Baclofen 20 MG Oral Tablet (LIORESAL) Baclofen 20 MG Oral Tablet (LIORESAL) 02/09/2020 12:00:00 AM EST active TAKE ONE TABLET BY MOUTH FOUR TIMES A DAY MAXIMUM DAILY DOSE 4 [facility] 10 mg 02/05/2020 12:00:00 AM EST tablet 10 TAKE 1 TABLET BY MOUTH ONCE NEEDED FOR SEVERE MIGRAINE TAKE 1 TABLET BY MOUTH ONCE NEEDED FO R SEVERE MIGRAINE SOLD: 02/10/2020 [facility] Ketorolac Tromethamine 10 MG Oral Tablet Ketorolac Tromethamine 10 MG Oral Tablet (TORADOL) Ketorolac Tromethamine 10 MG Oral Tablet (TORADOL) 12:00:00 AM EST active TAKE 1 TABLET BY MOUTH ONCE NEEDED FOR SEVERE MIGRAINE [facility] 10-325 mg 02/05/2020 12:00:00 AM EST tablet 180 TAKE ONE TABLET BY MOUTH EVERY 4 HOURS MAXIMUM DAILY DOSE = 6 TAKE ONE TABLET BY MOUTH EVERY 4 HOURS MAXIMUM DAILY DOSE = 6 SOLD: 02/05/2020 [facility] 150 mg 02/02/2020 12:00:00 AM EST capsule 60 TAKE 1 CAPSULE BY MOUTH TWO TIMES A DAY MAXIMUM DAILY DOSE = 2 CAPSULES TAKE 1 CAPSULE BY MOUTH TWO TIMES A DAY MAXIMUM DAILY DOSE = 2 CAPSULES SOLD: 02/05/2020 [facility] 40 mg 01/13/2020 12:00:00 AM EST capsule 30 TAKE ONE CAPSULE BY MOUTH EVERY DAY, MAXIMUM DAILY DOSE = 1 CAPSULE TAKE ONE CAPSULE BY MOUTH EVERY DAY, MAX IMUM DAILY DOSE = 1 CAPSULE SOLD: 01/16/2020 [facility] 10-325 mg 01/06/2020 12:00:00 AM EST tablet 180 TAKE 1 TABLET BY MOUTH EVERY 4 HOURS MAXIMUM DAILY DOSE = 6 TABLETS TAKE 1 TABLET BY MOUTH EVERY 4 HOURS MAXIMUM DAILY DOSE = 6 TABLETS SOLD: 01/06/2020 [facility] 100 mg 01/01/2020 12:00:00 AM EST tablet 60 TAKE TWO TABLETS BY MOUTH EVERY DAY TAKE TWO TABLETS BY MOUTH EVERY DAY SOLD: 03/24/2020 [facility] 50 mg 01/01/2020 12:00:00 AM EST tablet 90 TAKE ONE TO THREE TABLETS BY MOUTH ONCE DAILY AT BEDTIME NEEDED FOR SLEEP TAKE ONE TO THREE TABLETS BY MOUTH ONCE DAILY AT BEDTIME NEEDED FOR SLEEP SOLD: 01/04/2020 [facility] 100 mg 01/01/2020 12:00:00 AM EST tablet 60 TAKE TWO TABLETS BY MOUTH EVERY DAY TAKE TWO TABLETS BY MOUTH EVERY DAY SOLD: 01/04/2020 [facility] 150 mg 12/31/2019 12:00:00 AM EST capsule 60 TAKE ONE CAPSULE BY MOUTH TWICE A DAY MAXIMUM DAILY DOSE = 2 TAKE ONE CAPSULE BY MOUTH TWICE A DAY RONNI ARIZA DAILY DOSE = 2 SOLD: 01/04/2020 [facility] 290 mcg 12/26/2019 12:00:00 AM EST capsule 30 TAKE ONE CAPSULE BY MOUTH ONCE DAILY ON AN EMPTY STOMACH FOR IBS CONSTIPATION TAKE ONE CAPSULE BY MOUTH ONCE DAILY ON AN EMPTY STOMACH FOR IBS CONSTIPATION SOLD: 01/28/2020 [facility] 290 mcg 12/26/2019 12:00:00 AM EST capsule 30 TAKE ONE CAPSULE BY MOUTH ONCE DAILY ON AN EMPTY STOMACH FOR IBS CONSTIPATION TAKE ONE CAPSULE BY MOUTH ONCE DAILY ON AN EMPTY STOMACH FOR IBS CONSTIPATION SOLD: 02/27/2020 [facility] 290 mcg 12/26/2019 12:00:00 AM EST capsule 30 TAKE ONE CAPSULE BY MOUTH ONCE DAILY ON AN EMPTY STOMACH FOR IBS CONSTIPATION TAKE ONE CAPSULE BY MOUTH ONCE DAILY ON AN EMPTY STOMACH FOR IBS CONSTIPATION SOLD: 03/30/2020 [facility] 290 mcg 12/26/2019 12:00:00 AM EST capsule 30 TAKE ONE CAPSULE BY MOUTH ONCE DAILY ON AN EMPTY STOMACH FOR IBS CONSTIPATION TAKE ONE CAPSULE BY MOUTH ONCE DAILY ON AN EMPTY STOMACH FOR IBS CONSTIPATION SOLD: 12/29/2019 [facility] 17.5-3.13-1.6 gram 12/26/2019 12:00:00 AM EST recon soln 354 DIRECTED BY DIRECTED BY SOLD: 12/29/2019 [facility] Suprep Bowel Prep Kit Suprep Bowel Prep Kit 12/25/2019 12:00:00 AM EST active MEDENT ([facility], ) magnesium citrate 58.2 MG/ML Oral Solution Magnesium Citrate 12/25/2019 12:00:00 AM EST active MEDENT ([facility], ) linaclotide 0.29 MG Oral Capsule [Linzess] Linzess 12/25/2019 12:00:00 AM EST ORAL active MEDENT ([facility], ) Omeprazole 40 MG Delayed Release Oral Capsule Omeprazole 12/25/2019 12:00:00 AM EST ORAL active MEDENT ([facility], ) Diazepam 5 MG Oral Tablet Diazepam 12/13/2019 12:00:00 AM EDT ORAL active MEDENT ([facility]) 5 mg 12/13/2019 12:00:00 AM EDT tablet 14 TAKE ONE TABLET BY MOUTH TWICE A DAY NEEDED MAXIMUM DAILY DOSE = 2 TAKE ONE TABLET BY MOUTH TWICE A DAY NEEDED MAXIMUM DAILY DOSE = 2 SOLD: 12/13/2019 [facility] 40 mg 12/09/2019 12:00:00 AM EDT capsule 30 TAKE ONE CAPSULE BY MOUTH EVERY DAY MAXIMUM DAILY DOSE = ONE TAKE ONE CAPSULE BY MOUTH EVERY DAY MAXI MUM DAILY DOSE = ONE SOLD: 12/09/2019 [facility] 10 mg 12/09/2019 12:00:00 AM EDT tablet 30 TAKE ONE TABLET BY MOUTH EVERY AFTERNOON MAXIMUM DAILY DOSE = ONE TAKE ONE TABLET BY MOUTH EVERY AFTERNOON MAXIMUM DAILY DOSE = ONE SOLD: 12/09/2019 [facility] 10-325 mg 12/06/2019 12:00:00 AM EDT tablet 180 TAKE ONE TABLET BY MOUTH EVERY 4 HOURS MAXIMUM DAILY DOSE = 6 TAKE ONE TABLET BY MOUTH EVERY 4 HOURS MAXIMUM DAILY DOSE = 6 SOLD: 12/06/2019 [facility] 20 mg 12/06/2019 12:00:00 AM EDT tablet 120 TAKE ONE TABLET BY MOUTH FOUR TIMES A DAY MAXIMUM DAILY DOSE = 4 TAKE ONE TABLET BY MOUTH FOUR TIMES A DA Y MAXIMUM DAILY DOSE = 4 SOLD: 01/12/2020 [facility] 20 mg 12/06/2019 12:00:00 AM EDT tablet 120 TAKE ONE TABLET BY MOUTH FOUR TIMES A DAY MAXIMUM DAILY DOSE = 4 TAKE ONE TABLET BY MOUTH FOUR TIMES A DA Y MAXIMUM DAILY DOSE = 4 SOLD: 12/09/2019 [facility] 20 mg 12/06/2019 12:00:00 AM EDT tablet 120 TAKE ONE TABLET BY MOUTH FOUR TIMES A DAY MAXIMUM DAILY DOSE = 4 TAKE ONE TABLET BY MOUTH FOUR TIMES A DA Y MAXIMUM DAILY DOSE = 4 SOLD: 02/10/2020 [facility] 20 mg 12/06/2019 12:00:00 AM EDT tablet 120 TAKE ONE TABLET BY MOUTH FOUR TIMES A DAY MAXIMUM DAILY DOSE = 4 TAKE ONE TABLET BY MOUTH FOUR TIMES A DA Y MAXIMUM DAILY DOSE = 4 SOLD: 03/12/2020 [facility] 4 mg 12/03/2019 12:00:00 AM EDT tablets,dose pack 21 USE DIRECTED USE DIRECTED SOLD: 12/03/2019 [facility] Medrol Medrol 12/03/2019 12:00:00 AM EDT completed MEDENT ([facility]) 10 mg 12/03/2019 12:00:00 AM EDT tablet 10 TAKE ONE TABLET BY MOUTH NEEDED FOR SEVERE MIGRAINE MAXIMUM DAILY DOSE = ONE TAKE ONE TABLET BY MOUTH NEEDED FOR SEVERE MIGRAINE MAXIMUM DAILY DOSE = ONE SOLD: 12/03/2019 [facility] 150 mg 11/28/2019 12:00:00 AM EDT capsule 60 TAKE ONE CAPSULE BY MOUTH TWICE A DAY MAXIMUM DAILY DOSE = 2 TAKE ONE CAPSULE BY MOUTH TWICE A DAY MA XIMUM DAILY DOSE = 2 SOLD: 12/02/2019 [facility] 10 mg 11/06/2019 12:00:00 AM EDT tablet 30 TAKE 1 TABLET BY MOUTH ONCE A DAY IN THE AFTERNOON MAXIMUM DAILY DOSE = 1 TABLET TAKE 1 TABLET BY MOUTH ONCE A DAY IN THE AFTERNOON MAXIMUM DAILY DOSE = 1 TABLET SOLD: 11/10/2019 [facility] 40 mg 11/06/2019 12:00:00 AM EDT capsule 30 TAKE 1 CAPSULE BY MOUTH ONCE A DAY MAXIMUM DAILY DOSE = 1 CAPSULE TAKE 1 CAPSULE BY MOUTH ONCE A DAY MAXIM UM DAILY DOSE = 1 CAPSULE SOLD: 11/10/2019 [facility] 10-325 mg 11/06/2019 12:00:00 AM EDT tablet 180 TAKE ONE TABLET BY MOUTH EVERY 4 HOURS MAXIMUM DAILY DOSE = 6 TAKE ONE TABLET BY MOUTH EVERY 4 HOURS MAXIMUM DAILY DOSE = 6 SOLD: 11/06/2019 [facility] Aimovig 70 MG/ML Subcutaneous Solution Auto-injector 99644-6 41-01 11/03/2019 12:00:00 AM EDT active INJECT 7 0 MG UNDER THE SKIN ONCE MONTHLY [facility] 150 mg 10/17/2019 12:00:00 AM EDT capsule 60 TAKE ONE CAPSULE BY MOUTH TWICE A DAY MAXIMUM DAILY DOSE = 2 TAKE ONE CAPSULE BY MOUTH TWICE A DAY MA XIMUM DAILY DOSE = 2 SOLD: 10/30/2019 [facility] Aimovig Aimovig 10/14/2019 12:00:00 AM EDT SUBCUTANEOUS active MEDENT ([facility]) 10-325 mg 10/07/2019 12:00:00 AM EDT tablet 180 TAKE 1 TABLET BY MOUTH EVERY 4 HOURS MAXIMUM DAILY DOSE = 6 TABLETS TAKE 1 TABLET BY MOUTH EVERY 4 HOURS MAXIMUM DAILY DOSE = 6 TABLETS SOLD: 10/07/2019 [facility] 40 mg 10/04/2019 12:00:00 AM EDT capsule 30 TAKE ONE CAPSULE BY MOUTH EVERY DAY MAXIMUM DAILY DOSE = 1 TAKE ONE CAPSULE BY MOUTH EVERY DAY MAXI MUM DAILY DOSE = 1 SOLD: 10/07/2019 [facility] 10 mg 10/04/2019 12:00:00 AM EDT tablet 30 TAKE ONE TABLET BY MOUTH EVERY DAY IN THE AFTERNOON MAXIMUM DAILY DOSE = 1 TAKE ONE TABLET BY MOUTH EVERY DAY IN THE AFTERNOON MAXIMUM DAILY DOSE = 1 SOLD: 10/07/2019 [facility] 100 mg 10/04/2019 12:00:00 AM EDT tablet 60 TAKE TWO TABLETS BY MOUTH EVERY DAY TAKE TWO TABLETS BY MOUTH EVERY DAY SOLD: 10/07/2019 [facility] 1,250 mcg (50,000 unit) 10/03/2019 12:00:00 AM EDT capsule 3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 tablet, daily at bedtime, last dose yesterday.Baclofen Oral (Tablet 20 mg) 1 tablet, 4x a day, last dose today.Bascular insulin 24 units , daily at bedtime, last dose yesterday.Hydrocodone-Acetaminophen Oral (Tablet 10-325 mg) 1 tablet, q4h as needed, last dose today.Imitrex Subcutaneous unknown , as needed, last dose months ago.Jardiance Oral (Tablet 10 mg) 1 tablet, daily, last dose today.Lyrica Oral (Capsule 150 mg) 1 capsule, 2x a day, last dose today.Maxalt Oral unknown SL, as needed, last dose months ago.MetFORMIN HCl Oral (Tablet 500 mg) 2 tablets, 2x a day, last dose today.Omeprazole Oral (Tablet Delayed Release 20 mg) 1 tablet, daily at bedtime, last dose yest.Symbicort Inhalation 1 puff, daily, last dose unsure.Synthroid Oral 100 mcg, daily, last dose today.Valium Oral (Tablet 5 mg) 1 tablet, daily, last dose today.Ventolin HFA Inhalation 2 puffs, as needed, last dose unknown.Vitamin D Oral 50,000 units, once every 2 weeks , last dose 2 weeks ago.Vyvanse Oral (Capsule 40 mg) 1 capsule, daily, last dose today.Xanax Oral (Tablet 1 mg) 1 tablet, 3x a day, last dose weeks ago.Zoloft Oral 150mg , daily, last dose today. Allergies:Penicillins.(swelling)Sulfa Antibiotics.(swelling). INSTRUCTIONSYour Current Medications: Your current home medications have been reviewed. CONTINUE TAKING THE FOLLOWING MEDICATIONS:Adderall Oral : Tablet 10 mg, 1 tablet daily, Last: yesterday. Atorvastatin Calcium Oral : Tablet 10 mg, 1 tablet daily, Last: yesterday, at bedtime. Baclofen Oral : Tablet 20 mg, 1 tablet 4x a day, Last: today. Bascular insulin * : 24 units daily, Last: yesterday, at bedtime. Hydrocodone-Acetaminophen Oral : Tablet 10-325 mg, 1 tablet q4h, Last: today, prn. Imitrex Subcutaneous : unknown, Last: months ago, prn. Jardiance Oral : Tablet 10 mg, 1 tablet daily, Last: today. Lyrica Oral : Capsule 150 mg, 1 capsule 2x a day, Last: today. Maxalt Oral : unknown SL, Last: months ago, prn. MetFORMIN HCl Oral : Tablet 500 mg, 2 tablets 2x a day, Last: today. Omeprazole Oral : Tablet Delayed Release 20 mg, 1 tablet daily, Last: yest, at bedtime. Symbicort Inhalation : 1 puff daily, Last: unsure. Synthroid Oral : 100 mcg daily, Last: today. Valium Oral : Tablet 5 mg, 1 tablet daily, Last: today. Ventolin HFA Inhalation : 2 puffs, Last: unknown, prn. Vitamin D Oral : 50,000 units once every 2 weeks, Last: 2 weeks ago. Vyvanse Oral : Capsule 40 mg, 1 capsule daily, Last: today. Xanax Oral : Tablet 1 mg, 1 tablet 3x a day, Last: weeks ago. Zoloft Oral : 150mg daily, Last: today. (Electronically signed by Rain Pacheco PMary Beth 02/28/2020 23:30) Name Value Range Interpretation Code Description Data Loli rce(s) Supporting Document(s) ID Date Data Source [id number] 03/04/2020 11:00:00 AM EST [facility] Name Value Range Interpretation Code Description Data [facility] rce(s) Supporting Document(s) SARS coronavirus 2 RNA Not Detected [facility] This lab was ordered by [facility] and reported by [facility]. ID Date Data Source [id number] 02/28/2020 09:57:00 PM EST [facility] TSYSORDER [id number] Name Value Range Interpretation Code Description Data Loli rce(s) Supporting Document(s) TROPONIN I < 0.017 ng/mL 0.0-0.056 [facility] ID Date Data Source [id number] 02/28/2020 08:05:00 PM EST [facility] DATE OF EXAMINATION: 02/28/2020 18:30 EST CHEST 2 VIEWS HISTORY: Chest pain TECHNIQUE: PA and lateral radiographs of the chest COMPARISON: 08/17/2018 FINDINGS: The lungs are clear. The heart is normal in size. The pulmonary vasculature isnormal in appearance. The bony structure is intact. IMPRESSION: No acute disease. Electronically signed in PS360 by: Genaro Golden M.D. 02/28/2020 19:59 EST Name Value Range Interpretation Code Description Data Loli rce(s) Supporting Document(s) ID Date Data Source [id number] 02/28/2020 06:30:00 PM EST [facility] Name Value Range Interpretation Code Description Data Loli rce(s) Supporting Document(s) COVID-19 NEGATIVE [facility] This lab was ordered by [facility] and reported by [facility]. ID Date Data Source [id number] 02/28/2020 07:04:00 PM EST [facility] [id number] Name Value Range Interpretation Code Description Data Loli rce(s) Supporting Document(s) COVID-19 NEGATIVE NEGATIVE [facility] Negative results should be treated as pr esumptive and, ifinconsistent with clinical signs and symptoms or necessaryfor patient management, should be tested with differentauthorized or cleared molecular tests.Negative results do not preclude SARS-CoV-2 infection andshould not be used as the sole basis for patient managementdecisions.This is a rapid molecular in vitro diagnostic test utilizingan isothermal nucleic acid amplification technology intendedfor the qualitative detection of nucleic acid from the SARS-CoV-2 viral RNA in direct nasal, nasopharyngeal orthroat swabs from individuals who are suspected of COVID-19.Results are for the indentification of SARS-CoV-2 RNA. InpSHEC-AiZ-8 RNA is generally detectable in respiratorysamples during the actue phase of infection. ID Date Data Source [id number] 02/28/2020 08:39:00 PM EST [facility] TSYSORDER [id number] Name Value Range Interpretation Code Description Data Loli rce(s) Supporting Document(s) DDIMER 0.33 mg/LFEU 0.19-0.70 [facility] ID Date Data Source [id number] 02/28/2020 06:58:00 PM EST [facility] TSYSORDER [id number] Name Value Range Interpretation Code Description Data Loli rce(s) Supporting Document(s) TROPONIN I < 0.017 ng/mL 0.0-0.056 [facility] ID Date Data Source [id number] 02/28/2020 06:58:00 PM EST [facility]SYSORDER [id number] Name Value Range Interpretation Code Description Data Loli rce(s) Supporting Document(s) LIPASE 122 U/L 73-393 [facility] ID Date Data Source [id number] 02/28/2020 06:58:00 PM EST [facility] TSYSORDER [id number] Name Value Range Interpretation Code Description Data Loli rce(s) Supporting Document(s) GLUCOSE 162 mg/dL 74-106 H [facility] BLOOD UREA NITROGEN 12 mg/dL 7-18 [facility] ital CREATININE 0.91 mg/dL 0.6-1.0 [facility] SODIUM 139 mmol/L 136-145 [facility] POTASSIUM 3.7 mmol/L 3.5-5.1 [facility] CHLORIDE 102 mmol/L 98-107 [facility] CO2 24 mmol/L 21-32 [facility] CALCIUM 9.3 mg/dL 8.5-10.1 [facility] ANION GAP 13.0 mmol/L 5-12 H [facility] GLOMERULAR FILTRATION RATE 63 mL/min [facility] GFR IS CALCULATED IN mL/min/1.73m2 GUSTABO L FUNCTION: >90MILDLY DECREASED: 60-89MILDY TO MODERATELY DECREASED: 45-59 MODERATELY TO SEVERELY DECREASED: 30-44SEVERELY DECREASED: 15-29RENAL FAILURE: <15 AST 21 U/L 15-37 [facility] ALT 34 U/L 12-78 [facility] ALKALINE PHOSPHATASE 102 U/L 46-116 [facility]ital TOTAL BILIRUBIN 0.2 mg/dL 0.2-1.0 [facility] TOTAL PROTEIN 7.5 g/dl 6.4-8.2 [facility] ALBUMIN 3.8 gm/dL 3.4-5.0 [facility] ID Date Data Source [id number] 02/28/2020 06:54:00 PM EST [facility] TSYSORDER [id number] Name Value Range Interpretation Code Description Data Loli rce(s) Supporting Document(s) WHITE BLOOD COUNT 13.7 K/mm3 4.0-10.0 [facility] RED BLOOD COUNT 4.66 M/mm3 4.00-5.50 [facility] l HEMOGLOBIN 11.8 gm/dL 12.0-16.0 L [facility] HEMATOCRIT 36.5 % 36.0-48.8 [facility] MEAN CELL VOLUME 78.3 fl 80-96 L [facility] MEAN CORPUSCULAR HEMOGLOBIN 25.3 pg 27.0-31.0 L [facility] MEAN CORPUSCULAR HGB CONC 32.3 g/dl 32.0-36.0 [facility] RED CELL DISTRIBUTION WIDTH 18.2 % 10.0-14.5 H [facility] PLATELET COUNT 377 K/mm3 172-450 [facility] MEAN PLATELET VOLUME 9.6 fl 9.0-13.0 [facility]ital GRAN % 61.0 % 50-80.0 [facility] IG% 0.2 % 0.0-0.2 [facility] LYMPH % 28.2 % 25.0-50.0 [facility] MONO % 6.6 % 2.0-10.0 [facility] EOS % 3.4 % 0-5.0 [facility] BASO % 0.6 % 0.0-2.0 [facility] GRAN # 8.4 K/mm3 2.0-8.00 H [facility] IG# 0.0 K/mm3 0.0-0.2 [facility] LYMPH # 3.9 K/mm3 1.0-5.0 [facility] MONO # 0.9 K/mm3 0.10-1.20 [facility] EOS # 0.5 K/mm3 0.0-0.5 [facility] BASO # 0.1 K/mm3 0.0-0.2 [facility] ID Date Data Source [id number] 02/28/2020 06:51:00 PM [facility] TSYSORDER [id number] Name Value Range Interpretation Code Description Data Loli rce(s) Supporting Document(s) PROTHROMBIN TIME (PATIENT) 9.8 SECONDS 9.1-11.6 [facility] INR 0.94 0.87-1.06 [facility] ID Date Data Source [id number] 02/28/2020 06:51:00 PM [facility] TSYSORDER [id number] Name Value Range Interpretation Code Description Data Loli rce(s) Supporting Document(s) PARTIAL THROMBOPLASTIN TIME 21.8 SECONDS 21.2-27.3 [facility] ID Date Data Source [id number] 02/06/2020 12:00:00 AM EST eCW1 ([facility]) Name Value Range Interpretation Code Description Data Loli rce(s) Supporting Document(s) Hemoglobin A1c/Hemoglobin.total in Blood 7.7 HEMOGLOBIN A1c eCW1 ([facility]) ID Date Data Source FREE T4 & TSH PANEL 02/06/2020 12:00:00 AM EST eCW1 ([facility]) Name Value Range Interpretation Code Description Data Loli rce(s) Supporting Document(s) 1.29 0.76-1.46 FREE T4 eCW1 ([facility]) 1.630 0.358-3.740 THYROID STIMULATING HORM ONE eCW1 ([facility]) ID Date Data Source Comprehensive Metabolic Profile (CMP) 02/06/2020 12:00:00 AM EST eCW1 ([facility]) Name Value Range Interpretation Code Description Data Loli rce(s) Supporting Document(s) 138 70-100 GLUCOSE, FASTING eCW1 ([facility]) 14 7-18 BLOOD UREA NITROGEN eCW1 ([facility]) 139 136-145 SODIUM LEVEL eCW1 ([facility]) 4.3 3.5-5.1 POTASSIUM SERUM eCW1 ([facility]) 0.85 0.55-1.30 CREATININE FOR GFR eCW1 ([facility]) > 60.0 >45 GLOMERULAR FILTRATION RATE eCW 1 ([facility]) 103 98-107 CHLORIDE LEVEL eCW1 ([facility]) 125 45-117 ALKALINE PHOSPHATASE eCW1 ([facility]) 17 7-37 AST/SGOT eCW1 ([facility]) 29 21-32 CARBON DIOXIDE LEVEL eCW1 ([facility]) 10.4 8.8-10.2 CALCIUM LEVEL eCW1 ([facility]) 27 12-78 ALT/SGPT eCW1 ([facility]) 4.1 3.2-5.2 ALBUMIN eCW1 ([facility]) 1.1 1.2-2.2 ALBUMIN/GLOBULIN RATIO eCW1 ([facility]) 8.0 6.4-8.2 TOTAL PROTEIN eCW1 ([facility]) 0.4 0.2-1.0 BILIRUBIN,TOTAL eCW1 ([facility]) ID Date Data Source [id number] 12/16/2019 01:32:00 PM [facility] Patient: ISAURA GROSSMAN Observati on Report - Physicians/Mid Levels . [facility].VisitID: [id number] [place] [address] [phone], FRegistration Date/Time: 12/16/2019 09:20 Weight:65.7 kg (S). Height/Length:62 inches (S). BMI:26.5 PAST HISTORYProblems:Gastroenteritis [Active].Stress Reaction [Chronic].Thyroid Disease [Chronic].Occipital neuralgia [Chronic].Back Pain [Chronic].Anxiety/panic attacks [Chronic].Asthma [Chronic].ADHD - Attention Deficit Hyperactivity Disorder [Chronic].Gastroesophageal Reflux [Chronic].Sciatica [Chronic].Neuralgia [Chronic].Lung Disease [Chronic].Herniated Disk [Chronic].Irritable bowel syndrome (disorder) [Chronic].Jeanmarie Thyroiditis [Chronic].Fibromyalgia [Chronic].Migraine Headache [Chronic].Hypertension [Chronic].Diabetes Mellitus [Chronic].Depression [Chronic]. Additional Surgeries:Carpal Tunnel Surgery.Cervical fusion.Cervical laminectomy.Cholecystectomy..Rotator Cuff Surgery.Sinus Surgery.Tonsillectomy & Adenoidectomy.Tubal Ligation.Ulnar nerve. Medications:Valium Oral (Tablet 5 mg) 1 tablet, daily, last dose today.Adderall Oral (Tablet 10 mg) 1 tablet, daily, last dose yesterd ay.Atorvastatin Calcium Oral (Tablet 10 mg) 1 tablet, daily at bedtime, last dose yesterday.Baclofen Oral (Tablet 20 mg) 1 tablet, 4x a day, last dose today.Bascular insulin 24 units , daily at bedtime, last dose yesterday.Hydrocodone-Acetaminophen Oral (Tablet 10-325 mg) 1 tablet, q4h as needed, last dose today.Imitrex Subcutaneous unknown , as needed, last dose months ago.Jardiance Oral (Tablet 10 mg) 1 tablet, daily, last dose today.Lyrica Oral (Capsule 150 mg) 1 capsule, 2x a day, last dose today.Maxalt Oral unknown SL, as needed, last dose months ago.MetFORMIN HCl Oral (Tablet 500 mg) 2 tablets, 2x a day, last dose today.Omeprazole Oral (Tablet Delayed Release 20 mg) 1 tablet, daily at bedtime, last dose yest.Symbicort Inhalation 1 puff, daily, last dose unsure.Synthroid Oral 100 mcg, daily, last dose today.Ventolin HFA Inhalation 2 puffs, as needed, last dose unknown.Vitamin D Oral 50,000 units, once every 2 weeks , last dose 2 weeks ago.Vyvanse Oral (Capsule 40 mg) 1 capsule, daily, last dose today.Xanax Oral (Tablet 1 mg) 1 tablet, 3x a day, last dose weeks ago.Zoloft Oral 150mg , daily, last dose today.ZyrTEC Allergy Oral (Tablet 10 mg) 1 tablet, as needed, last dose unknown. Allergies:Penicillins.(swelling)Sulfa Antibiotics.(swelling). (Electronically signed by Celso Castro 12/16/2019 10:17) Name Value Range Interpretation Code Description Data Loli rce(s) Supporting Document(s) ID Date Data Source [id number] 11/18/2019 07:13:00 AM T [facility] l DATE OF EXAMINATION: 11/17/2019 20:50 EDT SHOULDER COMPLETE Left Shoulder INDICATION: Trauma, pain COMPARISON: None TECHNIQUE: 2 views of the shoulder were obtained. FINDINGS: There is no fracture or dislocation. The joint spaces are maintained.The visualized underlying ribs are unremarkable. IMPRESSION: Negative Electronically signed in PS360 by: Jc North M.D. 11/17/2019 21:57 EDT Name Value Range Interpretation Code Description Data Loli rce(s) Supporting Document(s) ID Date Data Source [id number] 11/18/2019 07:13:00 [facility] DATE OF EXAMINATION: 11/17/2019 20:50 EDT HUMERUS INDICATION: Trauma, Pain COMPARISON: None TECHNIQUE: 2 views of the humerus were obtained. FINDINGS: The osseous and articular structures are normal. No significant softtissue abnormalities are present. IMPRESSION: Negative exam. Electronically signed in PS360 by: Jc North M.D. 11/17/2019 21:57 EDT Name Value Range Interpretation Code Description Data Loli rce(s) Supporting Document(s) ID Date Data Source [id number] 11/18/2019 07:13:00 AM EDT [facility] DATE OF EXAMINATION: 11/17/2019 20:50 EDT SHOULDER COMPLETE Right Shoulder INDICATION: Trauma, pain COMPARISON: None TECHNIQUE: 2 views of the shoulder were obtained. FINDINGS: There is no fracture or dislocation. The joint spaces are maintained.The visualized underlying ribs are unremarkable. IMPRESSION: Negative Electronically signed in PS360 by: Jc North M.D. 11/17/2019 21:56 EDT Name Value Range Interpretation Code Description Data Loli rce(s) Supporting Document(s) ID Date Data Source [id number] 11/18/2019 01:28:00 AM EDT [facility] Patient: ISAURA GROSSMAN Observati on Report - Physicians/Mid Levels [place] [address].VisitID: [id number] [place] [address] [phone], FRegistration Date/Time: 11/17/2019 20:38 Weight:68 kg (S). Height/Length:62 inches (S). BMI:27.4 PAST HISTORYProblems:Gastroenteritis [Active].Asthma [Chronic].Occipital neuralgia [Chronic].Anxiety/panic attacks [Chronic].Gastroesophageal Reflux [Chronic].ADHD - Attention Deficit Hyperactivity Disorder [Chronic].Stress Reaction [Chronic].Neuralgia [Chronic].Lung Disease [Chronic].Herniated Disk [Chronic].Irritable bowel syndrome (disorder) [Chronic].Jeanmarie Thyroiditis [Chronic].Fibromyalgia [Chronic].Migraine Headache [Chronic].Hypertension [Chronic].Diabetes Mellitus [Chronic].Depression [Chronic]. Additional Surgeries:Carpal Tunnel Surgery.Cervical fusion.Cervical laminectomy.Cholecystectomy..Rotator Cuff Surgery.Sinus Surgery.Tonsillectomy & Adenoidectomy.Tubal Ligation.Ulnar nerve. Med ications:Adderall Oral (Tablet 10 mg) 1 tablet, daily, last dose today.Atorvastatin Calcium Oral (Tablet 10 mg) 1 tablet, daily, last dose 2 days ago.Baclofen Oral (Tablet 10 mg) 1 tablet, 4x a day, last dose today.Bascular insulin 24 units , daily, last dose 2 days ago.Hydrocodone- Acetaminophen Oral (Tablet 10-325 mg) 1 tablet, q4h as needed, last dose 2 days ago.Imitrex Subcutaneous unknown , as needed, last dose months ago.Jardiance Oral (Tablet 10 mg) 1 tablet, daily, last dose today.Lyrica Oral (Capsule 150 mg) 1 capsule, 2x a day, last dose today.Maxalt Oral unknown SL, as needed, last dose months ago.MetFORMIN HCl Oral (Tablet 500 mg) 2 tablets, 2x a day, last dose today.Omeprazole Oral (Tablet Delayed Release 20 mg) 1 tablet, daily, last dose yest.Symbicort Inhalation 1 puff, daily, last dose today.Synthroid Oral 100 mcg, daily, last dose today.Ventolin HFA Inhalation 2 puffs, as needed, last dose unknown.Vitamin D Oral 50,000 units, once every 2 weeks , last dose 2 weeks ago.Vyvanse Oral (Capsule 40 mg) 1 capsule, daily, last dose today.Xanax Oral (Tablet 1 mg) 1 tablet, 3x a day, last dose 2 weeks ago.Zoloft Oral 150mg , daily, last dose today.ZyrTEC Allergy Oral (Tablet 10 mg) 1 tablet, as needed, last dose unknown. Allergies:Penicillin V.(swelling)Sulfonamide Derivatives.(hives, itching) (swelling ). INSTRUCTIONSYour Current Medications: Your current home medications have been reviewed. CONTINUE TAKING THE FOLLOWING MEDICATIONS:Adderall Oral : Tablet 10 mg, 1 tablet daily, Last: today. Atorvastatin Calcium Oral : Tablet 10 mg, 1 ta blet daily, Last: 2 days ago. Baclofen Oral : Tablet 10 mg, 1 tablet 4x a day, Last: today. Bascular insulin * : 24 units daily, Last: 2 days ago. Hydrocodone-Acetaminophen Oral : Tablet 10-325 mg, 1 tablet q4h, Last: 2 days ago, prn. Imitrex Subcutaneous : unknown, Last: months ago, prn. Jardiance Oral : Tablet 10 mg, 1 tablet daily, Last: today. Lyrica Oral : Capsule 150 mg, 1 capsule 2x a day, Last: today. Maxalt Oral : unknown SL, Last: months ago, prn. MetFORMIN HCl Oral : Tablet 500 mg, 2 tablets 2x a day, Last: today. Omeprazole Oral : Tablet Delayed Release 20 mg, 1 tablet daily, Last: yest. Symbicort Inhalation : 1 puff daily, Last: today. Synthroid Oral : 100 mcg daily, Last: today. Ventolin HFA Inhalation : 2 puffs, Last: unknown, prn. Vitamin D Oral : 50,000 units once every 2 weeks, Last: 2 weeks ago. Vyvanse Oral : Capsule 40 mg, 1 capsule daily, Last: today. Xanax Oral : Tablet 1 mg, 1 tablet 3x a day, Last: 2 weeks ago. Zoloft Oral : 150mg daily, Last: today. Z yrTEC Allergy Oral : Tablet 10 mg, 1 tablet, Last: unknown, prn. (Electronically signed by Celso Wren 11/18/2019 01:27) Addenda for ISAURA GROSSMAN VisitID: [id number] Date: 11/17/2019 11/17/2019 [id number]:[id number] 11/17/2019 Site #1 removed upon discharge. Pressure dressing applied.(Electronically signed by Debbi Bangura R.N. - 11/17/2019 22:39) Name Value Range Interpretation Code Description Data Loli rce(s) Supporting Document(s) ID Date Data Source [id number] 11/17/2019 10:14:00 PM EDT [facility] l CT DORSAL SPINE WITHOUT CONTRAST DATE OF EXAMINATION: 11/17/2019 20:50 EDT THORACIC W/O IV CONTRAST INDICATION: Trauma, COMPARISON: TECHNIQUE: Axial images were obtained from the cervicothoracic junction areathrough the dorsolumbar junction region. Sagittal and coronal reconstructedimages were obtained. Intravenous contrast was not utilized for thisexamination. One or more of the following dose reduction techniques were utilized ineffectively lowering the radiation dose for this examination: Automated ExposureControl, Adjustment of the mA and/or kV according to patient size, or Iterativereconstr uction. FINDINGS: There is no fracture identified. There is no evidence of subluxationof the vertebral bodies or their articulating facets. No significantdegenerative change is seen in the disc spaces. No evidence of spinal stenosis. IMPRESSION: Negative dorsal spine CT scan. Electronically signed in PS360 by: Jc North M.D. 11/17/2019 22:08 EDT Name Value Range Interpretation Code Description Data [facility] Supporting Document(s) ID Date Data Source [id number] 11/17/2019 10:13:00 PM T [facility] CT LUMBAR SPINE WITHOUT CONTRAST DATE OF EXAMINATION: 11/17/2019 20:50 EDT L SPINE W/O IV CONTRAST INDICATION: Trauma, pain COMPARISON: None. TECHNIQUE: An unenhanced CT scan of the lumbar spine was performed. Thin sectionaxial images were obtained. Sagittal and coronal reformatted images wereobtained. One or more of the following dose reduction techniques were utilized ineffectively lowering the radiation dose for this examination: Automated ExposureControl, Adjustment of the mA and/or kV according to patient size, or Iterativereconstruction. FINDINGS: There is no evidence of acute fracture or subluxation. Normal vertebral bodyheights and alignment are maintained. The intervertebral disk spaces are within normal limits. No focal osteoblasticor osteolytic lesions are seen. The paravertebral soft tissues appearunremarkable. IMPRESSION: No evidence of acute fracture or subluxation. Electronically signed in PS360 by: Jc North M.D. 11/17/2019 22:07 EDT Name Value Range Interpretation Code Description Data Loli rce(s) Supporting Document(s) ID Date Data Source [id number] 11/17/2019 10:12:00 PM [facility] CERVICAL SPINE CT SCAN WITHOUT CONTRAST DATE OF EXAMINATION: 11/17/2019 20:50 EDT CERV SPINE W/O CONTRAST INDICATION: Trauma, pain COMPARISON: None TECHNIQUE: Axial images were obtained from the skull base through the thoracicinlet. Sagittal and coronal reconstructions were made. Intravenous contrast wasnot utilized for this examination. One or more of the following dose reduction techniques were utilized ineffectively lowering the radiation dose for this examination: Automated ExposureControl, Adjustment of the mA and/or kV according to patient size, or Iterativereconstruction. FINDINGS: The patient is post anterior fusion from C5 through C7. Anterior plateand screws are noted. No acute fracture is identified. Prevertebral soft tissuesare unremarkable. IMPRESSION: Postoperative changes, no acute injury Electronically signed in PS360 by: Jc North M.D. 11/17/2019 22:06 EDT Name Value Range Interpretation Code Description Data [facility](s) Supporting Document(s) ID Date Data Source [id number] 11/17/2019 10:09:00 PM EDT [facility] DATE OF EXAMINATION: 11/17/2019 20:50 EDT BRAIN W/O CONTRAST INDICATION: Trauma, pain This CT exam was performed using the following dose reduction techniques:Automated exposure control, adjustment of mA and/or kV according to thepatient's size, and use of iterative reconstruction technique. COMPARISON: None. The basal cisterns, cortical sulci and ventricles are normal. The chambers- whitematter differentiation is normal. There is no mass effect or shift. Nointracranial bleeds. No intra or extra-axial collections. The visualizedparanasal sinuses are well aerated. IMPRESSION: No acute intracranial abnormality Electronically signed in PS360 by: Jc North M.D. 11/17/2019 22:03 EDT Name Value Range Interpretation Code Description Data [facility]) Supporting Document(s) ID Date Data Source [id number] 08/22/2019 11:39:00 AM EDT [facility] DATE OF EXAMINATION: 08/21/2019 12:51 EDT MAMMO SCREEN BILAT WITH CAD HISTORY: Screening Based on the personal and family history information your patient supplied atthe time of imaging, her lifetime risk of breast cancer estimated date by theTyrer-Cuzick model is 14.5%. If anything changes in the personal and/or familyhistory this percentage could increase or decrease. Currently, NCCN and ACSrecommended adjunctive breast MRI screening starting at age 30 for women with a> 20-25% lifetime risk of developing breast cancer. Comparison is made to prior study dated 04/23/2018. 2-D bilateral digital mammogram in the CC and MLO planes were performed withsupplemental 3-D tomosynthesis of both breasts. The images were analyzed through the latest version of the Trifactae ddiagnosis system. The patient states that her last clinical breast examination was 9 months ago. Craniocaudal and oblique lateral views of the breasts were obtained. There arescattered areas of fibroglandular density. There is no dominant mass,suspicious clustered calcification, or architectural distortion. IMPRESSION: No mammographic evidence of malignancy. BiRAD 1 - Negative, Routine Yearly Mammographic Follow-up Recommended. 10-15% of cancers are not identified by mammography. This usually occurs whenthe mass is of the same radiographic density as the surrounding breast tissue,emphasizing the importance of breast self examination (BSE) and physicalexamination. A normal mammogram should not delay biopsy if a suspicious mass orabnormal findings are present upon physical examination. Electronically signed in PS360 by: Alfonzo Weldon M.D. 08/22/2019 11:33 EDT Name Value Range Interpretation Code Description Data Loli rce(s) Supporting Document(s) ID Date Data Source [id number] 06/28/2019 11:02:49 AM EDT [facility] PCName: Isaura LeijaOB: 1960Provider: Kelvin Stephenson: 06/28/2019 Reason For VisitVerbal consent obtained from the patient for telemedicine visit. This assessment was done using telemedicine as a result of social distancing due to the outbreak of COVID-19. Assessment 1. Ankle pain (719.47) (M25.579) PlanThe patient is in no acute distress. The patient is well developed. The patient appears healthy. The patient is oriented to person place and time, and has a normal mood given the situation. Normal coordination is demonstrated with the use video device.The patient denies fevers and chills. The patient denies chest pain or shortness of breath. The patient denies new onset numbness or tingling or headaches. The patient denies polyarticular complaints. The patient denies nausea/vomiting/diarrhea. The patient denies changes in smell, and taste.Body habitus is mildly overweightExam of both ankles done, and her feet appear warm and perfused. Motion non-irritable. Mild swelling in the area of the Achilles tendon insertion. Achilles tendon is visible and intact. Mild gastrocnemius contracture, motion is non-irritable. Foot is largely plantigrade.Assessm entBilateral left greater than right Achilles insertional tendinitisBilateral mild peroneal tendinitisPlanSymptoms insidious onset starting in October 2018. Pain is mild to moderate. Worse directly posteriorly over the posterior lateral heel on both sides. Worse on start up. Better when she gets it moving. Pain is worse the more she is on it. She has good weeks and bad weeks. Ibuprofen helps quite a bit. Nothing makes it normal. Staying about the same.On exam she has pain and points to the area of the Achilles insertion bilaterally. She also has some pain in the peroneal tendons.I discussed options for treatment including operative and nonoperative options. Typically the first option is conservative, i.e. nonoperative. This involves low-impact exercise, heel lifts, open back shoes, avoiding local irritation, avoiding extremes of dorsiflexion, avoiding local pressure on the area, specifically in bed, or resting positions, and use of anti-inflammatories, patient permitting. I avoid injections in the area, as I believe there is a high risk of Achilles rupture, which typically forces surgical management. We discussed the role of physical therapy, specifically that it's not particularly effective in my opinion with regard to Achilles insertional disease.I also discussed surgical options. Typical surgery for this works fairly well, though there is an extended recovery typically. Maximal improvement does take 6 months to a year. Risks of surgery include, not limited to, infection, wound palms, blood clot, PE, need for further surgery, failure to reach achieve pain relief. The most important patient-controlled factor is elevation postoperatively, for the first 10 days to minimize swelling, and minimize infection risk. There is cast immobilization or boot immobilization for typically 2-3 months. The first 3-4 weeks is typically a nonweightbearing situation. Occasionally, if insertional disease is significant enough, flexor hallux us longus tendon transfer is performed, but that's determined on an individual basis, with both preoperative MRI, and intraoperative findings contributing to the decision whether that is necessaryIn general the results are good, sometimes as much is 80 or 90% pain relief, but typically patients do see at least 75% pain relief. Of course there are exceptions to this. The patient asked appropriate questions. The patient appeared to understand the conversation with regard to diagnosis, and available treatment options, and risks and benefits of each.It appears she has a combination of Achilles tendinitis and a touch of peroneal tendinitis. She'll try the above listed strategies, and if that doesn't help, and she remains frustrated, then she can call and I'll be happy to see her in the office, to do x-rays, a complete physical exam, and discuss surgical options.Given that her symptoms have been going on almost a year, she may surgical to solve her problems. There is no emergency, this is elective, and I'll be happy to see her if she wants. Signatures Electronically signed by : Sheeba Stephenson M.D.; Jun 28 2019 11:02AM EST (Author) Name Value Range Interpretation Code Description Data Loli rce(s) Supporting Document(s) ID Date Data Source RHEUMATOID FACTOR QUANT 04/11/2019 12:00:00 AM EST eCW1 ([facility]) Name Value Range Interpretation Code Description Data Lloi rce(s) Supporting Document(s) < 10.0 <15.0 RHEUMATOID FACTOR QUANT eCW1 ( [facility]) ID Date Data Source URIC ACID 04/11/2019 12:00:00 AM EST eCW1 ([facility]) Name Value Range Interpretation Code Description Data Loli rce(s) Supporting Document(s) 4.6 2.6-6.0 URIC ACID eCW1 ([facility]) ID Date Data Source [id number] 04/11/2019 12:00:00 AM EST eCW1 ([facility]) Name Value Range Interpretation Code Description Data Loli rce(s) Supporting Document(s) Albumin/Creatinine [Mass Ratio] in Urine 23.7 MALB URINE SIEMENS eCW1 ([facility]) Microalbumin/Creatinine [Ratio] in Urine 25.9 0.0-30.0 TERESA/CREAT RATIO eCW1 ([facility]) Microalbumin/Creatinine [Mass Ratio] in Urine 91.4 CREATININE, URINE eCW1 ([facility]) ID Date Data Source CBC with Differential 04/11/2019 12:00:00 AM EST eCW1 ([facility]) Name Value Range Interpretation Code Description Data Loli rce(s) Supporting Document(s) 12.5 4.0-10.0 WHITE BLOOD COUNT eCW1 ([facility]) 5.26 4.00-5.40 RED BLOOD COUNT eCW1 ([facility]) 43.5 36.0-47.0 HEMATOCRIT eCW1 ([facility]) 13.7 12.0-15.5 HEMOGLOBIN eCW1 ([facility]) 31.5 32.0-36.5 MEAN CORPUSCULAR HGB CONC eCW1 ([facility]) 82.7 80.0-96.0 MEAN CORPUSCULAR VOLUME e CW1 ([facility]) 26.0 27.0-33.0 MEAN CORPUSCULAR HEMOGLOB IN eCW1 ([facility]) 18.4 11.5-14.5 RED CELL DISTRIBUTION WID TH eCW1 ([facility]) 441 150-450 PLATELET COUNT, AUTOMATED eCW1 ([facility]) 6.7 0.0-5.0 MONO % eCW1 ([facility]) 29.1 24.0-44.0 LYMPH % eCW1 ([facility]) 58.7 36.0-66.0 NEUTROPHILS % eCW1 ([facility]) 1.0 0.0-1.0 BASO % eCW1 ([facility]) 3.7 1.5-5.0 LYMPH # eCW1 ([facility]) 7.4 1.5-8.5 NEUTROPHILS # eCW1 ([facility]) 4.0 0.0-3.0 EOS % eCW1 ([facility]) 0.8 0.0-0.8 MONO # eCW1 ([facility]) 0.5 0.0-0.5 EOS # eCW1 ([facility]) 0.1 0.0-0.2 BASO # eCW1 ([facility]) Procedure Social History Code Duration Value Status Description Data Source(s ) Smoking 03/04/2020 12:00:00 AM EST Current Smoker completed Curre nt Smoker eCW1 ([facility]) Smoking 03/04/2020 12:00:00 AM EST Current Smoker completed Curre nt Smoker eCW1 ([facility]) Smoking 03/04/2020 12:00:00 AM EST Current Smoker completed Curre nt Smoker eCW1 ([facility]) Smoking 03/04/2020 12:00:00 AM EST Current Smoker completed Curre nt Smoker eCW1 ([facility]) Alcohol intake 03/03/2020 12:00:00 AM EST Current non-d nuha of alcohol (finding) completed Current non-drinker of alcohol (finding) [facility] Tobacco use and exposure 03/03/2020 12:00:00 AM EST Never used co mpleted Never used [facility] Cigarette pack-years 03/03/2020 12:00:00 AM EST UNK completed [facility] Cigarettes smoked current (pack per day) - Reported 03/03/19 12:00:00 AM EST UNK completed [facility] Smoking 03/03/2020 12:00:00 AM EST Current every day smoker co mpleted Current every day smoker [facility] Smoking 02/06/2020 12:00:00 AM EST Current Smoker completed Curre nt Smoker eCW1 ([facility]) Smoking 02/06/2020 12:00:00 AM EST Current Smoker completed Curre nt Smoker eCW1 ([facility]) Smoking 11/29/2019 12:00:00 AM EDT Current Smoker completed Curre nt Smoker eCW1 ([facility]) Vital Signs ID Date Data Source UNK Name Value Range Interpretation Code Description Data Source(s) Diastolic blood pressure 80 mm[Hg] 80 mm[Hg] eCW1 ([facility]) Systolic blood pressure 118 mm[Hg] 118 mm[Hg] e CW1 ([facility]) Body temperature 97.5 [degF] 97.5 [degF] eCW1 ( [facility]) Respiratory rate 16 /min 16 /min eCW1 ([facility]) Heart rate 91 /min 91 /min eCW1 ([facility]) Body mass index (BMI) [Ratio] 27.45 kg/m2 27.45 kg/m2 eCW1 ([facility]) Body height [in_i] eCW1 ([facility]) Body weight 155 [lb_av] 155 [lb_av] eCW1 ([facility]) Diastolic blood pressure 82 mm[Hg] 82 mm[Hg] eCW1 ([facility]) Systolic blood pressure 127 mm[Hg] 127 mm[Hg] e CW1 ([facility]) Body temperature 97.6 [degF] 97.6 [degF] eCW1 ( [facility]) Respiratory rate 18 /min 18 /min eCW1 ([facility]) Heart rate 91 /min 91 /min eCW1 ([facility]) Body mass index (BMI) [Ratio] 27.28 kg/m2 27.28 kg/m2 eCW1 ([facility]) Body height [in_i] eCW1 ([facility]) Body weight [lb_av] eCW1 ([facility]) Body weight 70.762 kg 70.762 kg [facility] ([facility], [facility] [place] body weight 110 [lb_av] 110 [lb_av] MEDEN T ([facility], ) Body mass index (BMI) [Ratio] 28.5 kg/m2 28.5 k g/m2 [facility] ([facility], ) Body weight 156.00 [lb_av] 156.00 [lb_av] MEDEN T ([facility], ) Body height 62 [in_i] 62 [in_i] [facility] ([facility], ) 5'2" Diastolic blood pressure 68 mm[Hg] 68 mm[Hg] [facility] ([facility], ) Systolic blood pressure 120 mm[Hg] 120 mm[Hg] [facility], ) Respiratory rate 20 /min 20 /min MEDENT ( [facility], ) Heart rate 84 /min 84 /min [facility] ([facility]) Diastolic blood pressure 80 mm[Hg] 80 mm[Hg] [facility] ([facility], ) Systolic blood pressure 130 mm[Hg] 130 mm[Hg] [facility], ) Diastolic blood pressure 86 mm[Hg] 86 mm[Hg] eCW1 ([facility]) Systolic blood pressure 136 mm[Hg] 136 mm[Hg] e CW1 ([facility]) Body temperature 97.8 [degF] 97.8 [degF] eCW1 ( [facility]) Respiratory rate 18 /min 18 /min eCW1 ([facility]) Heart rate 86 /min 86 /min eCW1 ([facility]) Body mass index (BMI) [Ratio] 26.75 kg/m2 26.75 kg/m2 eCW1 ([facility]) Body height [in_i] eCW1 ([facility]) Body weight 151 [lb_av] 151 [lb_av] eCW1 ([facility]) Respiratory rate 20 /min 20 /min MEDENT ( [facility], ) Heart rate 88 /min 88 /min MEDENT ([facility], ) Diastolic blood pressure 80 mm[Hg] 80 mm[Hg] MEDENT ([facility], ) Systolic blood pressure 120 mm[Hg] 120 mm[Hg] M EDENT ([facility], ) Diastolic blood pressure 83 mm[Hg] 83 mm[Hg] eCW1 ([facility]) Systolic blood pressure 139 mm[Hg] 139 mm[Hg] e CW1 ([facility]) Body temperature 98 [degF] 98 [degF] eCW1 ([facility]) Respiratory rate 17 /min 17 /min eCW1 ([facility]) Heart rate 86 /min 86 /min eCW1 ([facility]) Body mass index (BMI) [Ratio] 26.57 kg/m2 26.57 kg/m2 eCW1 ([facility]) Body height [in_us] eCW1 ([facility]) Body weight Measured 150 [lb_av] 150 [lb_av] eC W1 ([facility]) ID Date Data Source [id number] 03/30/2020 01:31:00 PM EST [facility] Name Value Range Interpretation Code Description Data Source(s) WEIGHT 74.84 kilos 74.84 kilos [facility] HEIGHT 157.48 centimeters 157.48 centimeter [facility] WEIGHT 74.84 kilos 74.84 [facility] HEIGHT 157.48 centimeters 157.48 centimeter [facility] Patient Treatment Plan of Care Planned Activity Planned Date Details Description Data Source (s) 12 HR Orphenadrine Citrate 100 MG Extended Release Ora l Tablet 03/19/2020 12:00:00 AM [facility] Diclofenac Sodium 50 MG Delayed Release Oral Tablet 03/19/19 12:00:00 AM [facility] Prednisone 20 MG Oral Tablet 03/04/2020 12:00:00 AM [facility] eCW1 ([facility]) Prednisone 20 MG Oral Tablet 03/04/2020 12:00:00 AM EST eCW1 ([facility]) Prednisone 20 MG Oral Tablet 03/04/2020 12:00:00 AM EST eCW1 ([facility]) Prednisone 20 MG Oral Tablet 03/04/2020 12:00:00 AM EST eCW1 ([facility]) linaclotide 0.29 MG Oral Capsule [Linzess] 02/24/2020 12:00:00 AM [facility] Baclofen 20 MG Oral Tablet 02/09/2020 12:00:00 AM [facility] Ketorolac Tromethamine 10 MG Oral Tablet 02/05/2020 12:00:00 AM [facility] Aimovig 70 MG/ML Subcutaneous Solution Auto-injector 020 12:00:00 AM [facility] Nicotine 2 MG Oral Lozenge 06/03/2019 12:00:00 AM EDT eCW1 ([facility]) Accu-Chek Eliz - 05/16/2019 12:00:00 AM EDT eCW1 ([facility]) Accu-Chek Eliz - 05/16/2019 12:00:00 AM EDT eCW1 ([facility]) Accu-Chek Eliz - 05/16/2019 12:00:00 AM EDT eCW1 ([facility]) Accu-Chek Eliz - 05/16/2019 12:00:00 AM EDT eCW1 ([facility]) Accu-Chek Instant Control - 05/09/2019 12:00:00 AM EDT eCW1 ([facility]) Accu-Chek FastClix Lancets - 05/09/2019 12:00:00 AM EDT eCW1 ([facility]) Isopropyl Alcohol 0.7 ML/ML Medicated Pad 05/09/2019 12:00:00 AM ED T eCW1 ([facility]) Accu-Chek Guide - 05/09/2019 12:00:00 AM EDT eCW1 ([facility]) Accu-Chek FastClix Lancets - 05/09/2019 12:00:00 AM EDT eCW1 ([facility]) Isopropyl Alcohol 0.7 ML/ML Medicated Pad 05/09/2019 12:00:00 AM ED T eCW1 ([facility]) Accu-Chek FastClix Lancets - 05/09/2019 12:00:00 AM EDT eCW1 ([facility]) Accu-Chek Instant Control - 05/09/2019 12:00:00 AM EDT eCW1 ([facility]) Isopropyl Alcohol 0.7 ML/ML Medicated Pad 05/09/2019 12:00:00 AM ED T eCW1 ([facility]) Accu-Chek Guide - 05/09/2019 12:00:00 AM EDT eCW1 ([facility]) Accu-Chek Instant Control - 05/09/2019 12:00:00 AM EDT eCW1 ([facility]) Accu-Chek Guide - 05/09/2019 12:00:00 AM EDT eCW1 ([facility]) Accu-Chek FastClix Lancets - 05/09/2019 12:00:00 AM EDT eCW1 ([facility]) Accu-Chek Guide - 05/09/2019 12:00:00 AM EDT eCW1 ([facility]) Isopropyl Alcohol 0.7 ML/ML Medicated Pad 05/09/2019 12:00:00 AM ED T eCW1 ([facility]) Accu-Chek Instant Control - 05/09/2019 12:00:00 AM EDT eCW1 ([facility]) Accu-Chek Guide - 05/09/2019 12:00:00 AM EDT eCW1 ([facility]) Accu-Chek FastClix Lancets - 05/09/2019 12:00:00 AM EDT eCW1 ([facility]) empagliflozin 25 MG Oral Tablet [Jardiance] 04/11/2019 12:00:00 AM EST eCW1 ([facility]) empagliflozin 25 MG Oral Tablet [Jardiance] 04/11/2019 12:00:00 AM EST eCW1 ([facility]) empagliflozin 25 MG Oral Tablet [Jardiance] 04/11/2019 12:00:00 AM EST eCW1 ([facility]) empagliflozin 25 MG Oral Tablet [Jardiance] 04/11/2019 12:00:00 AM EST eCW1 ([facility])
--- NOTE | 2020-04-07 10:41 | ROOR ---
Patient Name: Jay Pringle Procedure Date: 04/07/2020 10:03 AM Date of : 1960 Age: 59 Room: [facility] Gender: Female Note Status: Finalized Procedure: Colonoscopy Indications: Hematochezia, Constipation Providers: Kt DAMIAN MD Referring MD: Joseph Riddle MD Requesting Provider: Medicines: Monitored Anesthesia Care Complications: No immediate complications. Procedure: Pre-Anesthesia Assessment: - The heart rate, respiratory rate, oxygen saturations, blood pressure, adequacy of pulmonary ventilation, and response to care were monitored throughout the procedure. The Colonoscope was introduced through the anus and advanced to the cecum, identified by appendiceal orifice and ileocecal valve. The Colonoscope was introduced through the anus and advanced to the cecum, identified by appendiceal orifice and ileocecal valve. The colonoscopy was somewhat difficult due to inadequate bowel prep. Successful completion of the procedure was aided by lavage. The patient tolerated the procedure well. The quality of the bowel preparation was fair. Findings: The perianal and digital rectal examinations were normal. (EXAM: Complete, PREP: Suboptimal) A localized area of granular mucosa was found at the ileocecal valve. Biopsies were taken with a cold forceps for histology. Internal hemorrhoids were found during retroflexion. The hemorrhoids were moderate. The exam was otherwise without abnormality on direct and retroflexion views. Impression: - (EXAM: Complete, PREP: Suboptimal) - Granularity at the ileocecal valve. Biopsied. - Internal hemorrhoids. - The colon was otherwise normal on direct and retroflexion views. Recommendation: - Continue present medications. - Await pathology results. - Telephone endoscopist for pathology results in 2 weeks. Procedure Code(s): --- Professional --- 68924, Colonoscopy, flexible; with biopsy, single or multiple Diagnosis Code(s): --- Professional --- K59.00, Constipation, unspecified K92.1, Melena (includes Hematochezia) K63.89, Other specified diseases of intestine K64.8, Other hemorrhoids CPT copyright 2019 [employer]. All rights reserved. The codes documented in this report are preliminary and upon clerical adjuster review may be revised to meet current compliance requirements. Kt Damian MD Kt DAMIAN MD 04/07/2020 10:40:27 AM Electronically signed by Kt DAMIAN MD Number of Addenda: 0 Note Initiated On: 04/07/2020 10:03 AM Estimated Blood Loss: Estimated blood loss: none.
[2020-04-07 11:00] VITALS: BP 93/65
== END 2020-04-07 11:09 | disposition home or self-care (01) ==
LOC: M OPP 07:35
PROVIDERS: ATTEND Internal Medicine Gastroenterology
DX: K92.1 Melena (principal); K59.00 Constipation, unspecified; D12.0 Benign neoplasm of cecum; K63.89 Other specified diseases of intestine; K64.8 Other hemorrhoids; E78.5 Hyperlipidemia, unspecified; E11.9 Type 2 diabetes mellitus without complications; E03.9 Hypothyroidism, unspecified; K58.9 Irritable bowel syndrome, unspecified; R12 Heartburn; M19.90 Unspecified osteoarthritis, unspecified site; M79.7 Fibromyalgia; M81.0 Age-related osteoporosis without current pathological fracture; F41.9 Anxiety disorder, unspecified; F32.9 Major depressive disorder, single episode, unspecified; G43.909 Migraine, unspecified, not intractable, without status migrainosus; G62.9 Polyneuropathy, unspecified; F90.9 Attention-deficit hyperactivity disorder, unspecified type; J45.909 Unspecified asthma, uncomplicated; K21.9 Gastro-esophageal reflux disease without esophagitis; F17.210 Nicotine dependence, cigarettes, uncomplicated; Z88.0 Allergy status to penicillin; Z88.2 Allergy status to sulfonamides; Z79.84 Long term (current) use of oral hypoglycemic drugs; Z79.899 Other long term (current) drug therapy; Z83.3 Family history of diabetes mellitus; Z82.49 Family history of ischemic heart disease and other diseases of the circulatory system; Z80.0 Family history of malignant neoplasm of digestive organs; Z82.69 Family history of other diseases of the musculoskeletal system and connective tissue; Z83.6 Family history of other diseases of the respiratory system; Z80.3 Family history of malignant neoplasm of breast

== ENCOUNTER → 2020-09-04 | Outpatient (REF) | payer MEDICARE ==
[~2020-09-04] MED LIST changes: +ERGO500029 PO; -NS 1,000 ML IV ONE; +OMEP40CA4 PO; -OMEP40CA97 PO; -VITA50005 PO
[2020-09-04 16:03] LABS: HEMOGLOBIN A1c 8.2 %
[2020-09-04 16:21] LABS: ALBUMIN 4.2 GM/DL (3.2-5.2); ALT/SGPT 33 U/L (12-78); BILIRUBIN,TOTAL 0.4 MG/DL (0.2-1.0); BLOOD UREA NITROGEN 11 MG/DL (7-18); CALCIUM LEVEL 9.6 MG/DL (8.8-10.2); CARBON DIOXIDE LEVEL 31 MEQ/L (21-32); CHLORIDE LEVEL 101 MEQ/L (98-107); CHOLESTEROL LEVEL 206 MG/DL (<200); CHOLESTEROL RISK RATIO 3.886 (<5); CREATININE FOR GFR 0.74 MG/DL (0.55-1.30); FREE T4 1.29 NG/DL (0.76-1.46); GLOMERULAR FILTRATION RATE > 60.0 (>45); GLUCOSE, FASTING 139 MG/DL (70-100); HDL CHOLESTEROL 53 MG/DL (>40); LDL CHOLESTEROL 122 MG/DL (<100); NON-HDL-C 153 MG/DL; POTASSIUM SERUM 4.5 MEQ/L (3.5-5.1); SODIUM LEVEL 139 MEQ/L (136-145); THYROID STIMULATING HORMONE 0.569 uIU/ML (0.358-3.740); TOTAL 25(OH) VITAMIN D 79.5 NG/ML (30.0-100.0); TOTAL PROTEIN 8.2 GM/DL (6.4-8.2); TRIGLYCERIDES LEVEL 153 MG/DL (<150)
== END ==
LOC: M SFHCCLAY 10:26
PROVIDERS: ATTEND Family Medicine
DX: E03.9 Hypothyroidism, unspecified (principal); E11.9 Type 2 diabetes mellitus without complications; E55.9 Vitamin D deficiency, unspecified
CPT/HCPCS: 80053; 80061; 82306; 83036; 84439; 84443; G0463

== ENCOUNTER → 2021-01-26 | Outpatient (CLI) | payer MEDICARE ==
--- NOTE | 2021-01-27 01:46 | REPVR ---
PROCEDURE INFORMATION: Exam: MR Cervical Spine Without Contrast Exam date and time: 01/26/2021 11:20 AM Age: 60 years old Clinical indication: Other: Cervicalgia spondylosis cervical region; Prior surgery; Surgery date: 6+ months TECHNIQUE: Imaging protocol: Multiplanar magnetic resonance images of the cervical spine without contrast. COMPARISON: CR SPINE LS COMPLETE 04/11/2019 10:34 AM FINDINGS: Vertebrae: Postoperative changes, with fusion of the C5 through C7 vertebral bodies. Associated magnetic susceptibility artifact limits this study. No abnormal subluxation of the cervical vertebral bodies. Spinal cord: No visualized cervical spinal cord edema. See below. Multilevel findings: Degenerative disc disease is noted at multiple cervical levels, with a decrease in the T2 signal intensity of the discs as well as disc bulge/osteophyte complexes. C2-C3: There is no significant narrowing of the thecal sac or neural foramina. C3-C4: Mild disc bulging causing flattening of the ventral border of the thecal sac without significant spinal canal stenosis. Mild left neural foraminal narrowing, with uncovertebral hypertrophy and facet arthropathy. No significant narrowing of the right neural foramen. C4-C5: Mild disc bulging, without significant spinal canal stenosis. No significant neural foraminal narrowing bilaterally. C5-C6: Mild spinal canal stenosis with flattening of the ventral border of the cervical spinal cord. Moderate bilateral neural foraminal narrowing, with uncovertebral hypertrophy. C6-C7: Mild spinal canal stenosis. Moderate bilateral neural foraminal narrowing, with uncovertebral hypertrophy. Moderate right and moderate to severe left neural foraminal narrowing, with uncovertebral hypertrophy and facet arthropathy. C7-T1: No significant spinal canal stenosis. No significant neural foraminal narrowing bilaterally. Soft tissues: No significant prevertebral soft tissue swelling. Sella: Empty sella. Thyroid: The thyroid lobes are asymmetric in size. Vertebral arteries: Expected flow voids in the vertebral arteries. IMPRESSION: 1. Postoperative changes, with fusion of the C5 through C7 vertebral bodies. 2. Degenerative changes are noted at multiple cervical levels, as described above. 3. Mild spinal canal stenosis at C5-C6 and C6-C7, with slight flattening of the ventral cervical spinal cord at C5-C6. 4. Neural foraminal narrowing at C3-C4, C5-C6, and C6-C7. 5. Empty sella. Electronically signed by: Ray So On 01/27/2021 01:45:33 AM
== END ==
LOC: M RAD 10:44
PROVIDERS: ATTEND Neurological Surgery
DX: M50.21 Other cervical disc displacement, high cervical region (principal); M50.221 Other cervical disc displacement at C4-C5 level; M48.02 Spinal stenosis, cervical region; M47.812 Spondylosis without myelopathy or radiculopathy, cervical region; E23.6 Other disorders of pituitary gland

== ENCOUNTER → 2021-03-11 | Outpatient (CLI) | payer MEDICARE, OTHER | LOC: M PLAIMG 10:42 | PROVIDERS: ATTEND Neurological Surgery | DX: M43.16 Spondylolisthesis, lumbar region (principal); M48.061 Spinal stenosis, lumbar region without neurogenic claudication; M47.816 Spondylosis without myelopathy or radiculopathy, lumbar region ==

== ENCOUNTER → 2021-05-27 | Outpatient (REF) | payer MEDICARE ==
[2021-05-27 15:47] LABS: APPEARANCE, URINE CLEAR (CLEAR); BACTERIA, URINE AUTO NEGATIVE (NEGATIVE); BILIRUBIN, URINE AUTO NEGATIVE (NEGATIVE); BLOOD, URINE BLOOD 1+ (NEGATIVE); COLOR, URINE YELLOW (YELLOW); GLUCOSE, URINE (UA) AUTO 3+ mg/dL (NEGATIVE); KETONE, URINE AUTO NEGATIVE (NEGATIVE); LEUKOCYTE ESTERASE, URINE AUTO NEGATIVE (NEGATIVE); NITRITE, URINE AUTO NEGATIVE (NEGATIVE); PROTEIN, URINE AUTO NEGATIVE (NEGATIVE); RBC, URINE AUTO 1 /HPF (0-3); SPECIFIC GRAVITY URINE AUTO 1.027 (1.002-1.035); SQUAMOUS EPITHELIAL CELL UR AU 1 /HPF (0-6); UROBILINOGEN, URINE AUTO 0.2 mg/dL (0.0-2.0); WBC, URINE AUTO 1 /HPF (0-3)
[2021-05-27 16:16] LABS: ALT/SGPT 36 U/L (12-78); BILIRUBIN,TOTAL 0.3 MG/DL (0.2-1.0); BLOOD UREA NITROGEN 9 MG/DL (7-18); CALCIUM LEVEL 9.8 MG/DL (8.8-10.2); CARBON DIOXIDE LEVEL 29 MEQ/L (21-32); CHLORIDE LEVEL 104 MEQ/L (98-107); CREATININE FOR GFR 0.81 MG/DL (0.55-1.30); GLOMERULAR FILTRATION RATE > 60.0 (>45); GLUCOSE, FASTING 143 MG/DL (70-100); POTASSIUM SERUM 4.9 MEQ/L (3.5-5.1); SODIUM LEVEL 138 MEQ/L (136-145)
== END ==
LOC: M SFHCCLAY 10:27
PROVIDERS: ATTEND Family Medicine
DX: R31.0 Gross hematuria (principal); E11.40 Type 2 diabetes mellitus with diabetic neuropathy, unspecified; Z79.4 Long term (current) use of insulin

== ENCOUNTER → 2021-12-17 | Outpatient (REF) | payer MEDICARE ==
[~2021-12-17] MED LIST changes: +ALBU6.7H6 INH; -PROV108A INH
[2021-12-17 12:02] LABS: HEMATOCRIT 42.1 % (36.0-47.0); HEMOGLOBIN 13.2 g/dl (12.0-15.5); MEAN CORPUSCULAR HEMOGLOBIN 26.9 pg (27.0-33.0); MEAN CORPUSCULAR HGB CONC 31.4 g/dl (32.0-36.5); MEAN CORPUSCULAR VOLUME 85.7 fl (80.0-96.0); PLATELET COUNT, AUTOMATED 398 10^3/uL (150-450); RED BLOOD COUNT 4.91 10^6/uL (4.00-5.40); WHITE BLOOD COUNT 8.6 10^3/uL (4.0-10.0)
[2021-12-17 13:12] LABS: MAU/CREAT RATIO 4.6 MCG/MG (0.0-30.0)
[2021-12-17 13:22] LABS: BLOOD UREA NITROGEN 8 MG/DL (7-18); CALCIUM LEVEL 9.4 MG/DL (8.8-10.2); CARBON DIOXIDE LEVEL 28 MEQ/L (21-32); CHLORIDE LEVEL 106 MEQ/L (98-107); CHOLESTEROL LEVEL 236 MG/DL (<200); CHOLESTEROL RISK RATIO 4.627 (<5); CREATININE FOR GFR 0.78 MG/DL (0.55-1.30); GLOMERULAR FILTRATION RATE > 60.0 (>45); GLUCOSE, FASTING 102 MG/DL (70-100); HDL CHOLESTEROL 51 MG/DL (>40); LDL CHOLESTEROL 151 MG/DL (<100); NON-HDL-C 185 MG/DL; POTASSIUM SERUM 4.1 MEQ/L (3.5-5.1); SODIUM LEVEL 139 MEQ/L (136-145); THYROID STIMULATING HORMONE 0.685 uIU/ML (0.358-3.740); TRIGLYCERIDES LEVEL 169 MG/DL (<150)
[2021-12-17 13:41] LABS: TOTAL 25(OH) VITAMIN D 38.9 NG/ML (30.0-100.0)
[2021-12-17 17:28] LABS: HEMOGLOBIN A1c 6.5 %
== END ==
LOC: M SFHCCLAY 08:18
PROVIDERS: ATTEND Family Medicine
DX: J45.30 Mild persistent asthma, uncomplicated (principal); G62.89 Other specified polyneuropathies; E11.40 Type 2 diabetes mellitus with diabetic neuropathy, unspecified

== ENCOUNTER → 2022-03-31 | Outpatient (REF) | payer MEDICARE ==
[2022-03-31 13:04] LABS: ALT/SGPT 25 U/L (7.0-40); BLOOD UREA NITROGEN 14 MG/DL (9-23); CARBON DIOXIDE LEVEL 28 MMOL/L (20-31); CHLORIDE LEVEL 105 MMOL/L (98-107); CHOLESTEROL LEVEL 153 MG/DL (<200); CHOLESTEROL RISK RATIO 2.67 (<5); CREATININE FOR GFR 0.72 MG/DL (0.55-1.30); GLOMERULAR FILTRATION RATE > 60.0 (>45); GLUCOSE, FASTING 86 MG/DL (74-106); HDL CHOLESTEROL 57.2 MG/DL (>40); LDL CHOLESTEROL 75.2 MG/DL (<100); NON-HDL-C 96 MG/DL; POTASSIUM SERUM 4.1 MMOL/L (3.5-5.1); SODIUM LEVEL 140 MMOL/L (136-145); TRIGLYCERIDES LEVEL 103 MG/DL (<150)
[2022-03-31 13:36] LABS: HEMOGLOBIN A1c 6.1 % (4.0-6.0)
== END ==
LOC: M SFHCCLAY 08:32
PROVIDERS: ATTEND Family Medicine
DX: E11.9 Type 2 diabetes mellitus without complications (principal)

== ENCOUNTER → 2022-04-05 | Outpatient (REF) | payer MEDICARE | LOC: M SFHCCLAY 09:48 | PROVIDERS: ATTEND Family Medicine | DX: Z12.4 Encounter for screening for malignant neoplasm of cervix (principal) | CPT/HCPCS: 87624; G0123 ==

== ENCOUNTER → 2022-04-22 | Outpatient (REF) | payer MEDICARE | LOC: M SFHCCLAY 15:18 | PROVIDERS: ATTEND Physician Assistant | DX: R30.0 Dysuria (principal) ==

== ENCOUNTER → 2022-12-14 | Outpatient (REF) | payer MEDICARE, MEDICAID ==
[~2022-12-14] MED LIST changes: -ORPH100T PO; +ORPH1TAB6 PO
[2022-12-14 17:15] LABS: INR 1.07; PROTHROMBIN TIME 13.6 SECONDS (12.5-14.5)
[2022-12-14 17:25] LABS: APPEARANCE, URINE HAZY (CLEAR); BACTERIA, URINE AUTO NEGATIVE (NEGATIVE); BILIRUBIN, URINE AUTO NEGATIVE (NEGATIVE); BLOOD, URINE BLOOD 1+ (NEGATIVE); COLOR, URINE YELLOW (YELLOW); GLUCOSE, URINE (UA) AUTO 3+ mg/dL (NEGATIVE); KETONE, URINE AUTO NEGATIVE (NEGATIVE); LEUKOCYTE ESTERASE, URINE AUTO 3+ (NEGATIVE); MUCUS, URINE SMALL (NEGATIVE); NITRITE, URINE AUTO NEGATIVE (NEGATIVE); PROTEIN, URINE AUTO NEGATIVE (NEGATIVE); RBC, URINE AUTO 2 /HPF (0-3); SPECIFIC GRAVITY URINE AUTO 1.017 (1.002-1.035); SQUAMOUS EPITHELIAL CELL UR AU 3 /HPF (0-6); UROBILINOGEN, URINE AUTO 0.2 mg/dL (0.0-2.0); WBC, URINE AUTO 31 /HPF (0-3)
[2022-12-14 17:28] LABS: BASO % 0.4 % (0.0-1.0); EOS # 0.3 10^3/uL (0.0-0.5); EOS % 2.8 % (0.0-3.0); HEMATOCRIT 46.4 % (36.0-47.0); HEMOGLOBIN 14.5 g/dl (12.0-15.5); LYMPH # 2.9 10^3/uL (1.5-5.0); LYMPH % 31.1 % (24.0-44.0); MEAN CORPUSCULAR HEMOGLOBIN 27.3 pg (27.0-33.0); MEAN CORPUSCULAR HGB CONC 31.3 g/dl (32.0-36.5); MEAN CORPUSCULAR VOLUME 87.4 fl (80.0-96.0); MONO # 0.5 10^3/uL (0.0-0.8); MONO % 5.7 % (2.0-8.0); NEUTROPHILS # 5.6 10^3/uL (1.5-8.5); NEUTROPHILS % 59.8 % (36.0-66.0); PLATELET COUNT, AUTOMATED 380 10^3/uL (150-450); RED BLOOD COUNT 5.31 10^6/uL (4.00-5.40); WHITE BLOOD COUNT 9.4 10^3/uL (4.0-10.0)
[2022-12-14 17:50] LABS: HEMOGLOBIN A1c 5.5 % (4.0-6.0)
[2022-12-14 17:52] LABS: FREE T4 0.6 NG/DL (0.89-1.76)
== END ==
LOC: M SFHCCLAY 07:31
PROVIDERS: ATTEND Family Medicine
DX: E11.9 Type 2 diabetes mellitus without complications (principal); E78.2 Mixed hyperlipidemia; E03.9 Hypothyroidism, unspecified; Z86.39 Personal history of other endocrine, nutritional and metabolic disease

== ENCOUNTER → 2023-06-14 | Outpatient (REF) | payer MEDICARE, MEDICAID ==
[2023-06-14 17:46] LABS: HEMOGLOBIN A1c 5.8 % (4.0-6.0)
[2023-06-14 17:47] LABS: BLOOD UREA NITROGEN 21 MG/DL (9-23); CALCIUM LEVEL 9.4 MG/DL (8.3-10.6); CARBON DIOXIDE LEVEL 26 MMOL/L (20-31); CHLORIDE LEVEL 106 MMOL/L (98-107); CHOLESTEROL LEVEL 144 MG/DL (<200); CHOLESTEROL RISK RATIO 2.76 (<5); GLOMERULAR FILTRATION RATE > 60.0 (>45); GLUCOSE, FASTING 96 MG/DL (74-106); HDL CHOLESTEROL 52.1 MG/DL (>40); LDL CHOLESTEROL 66.9 MG/DL (<100); NON-HDL-C 91.9 MG/DL; POTASSIUM SERUM 4.4 MMOL/L (3.5-5.1); SODIUM LEVEL 138 MMOL/L (136-145); TRIGLYCERIDES LEVEL 125 MG/DL (<150)
[2023-06-14 17:48] LABS: FREE T4 1.42 NG/DL (0.89-1.76); THYROID STIMULATING HORMONE 0.249 uIU/ML (0.55-4.78)
== END ==
LOC: M SFHCCLAY 10:01
PROVIDERS: ATTEND Family Medicine
DX: E03.9 Hypothyroidism, unspecified (principal); E78.2 Mixed hyperlipidemia; J45.901 Unspecified asthma with (acute) exacerbation; E11.9 Type 2 diabetes mellitus without complications

== ENCOUNTER → 2023-08-30 | Outpatient (REF) | payer MEDICARE, MEDICAID ==
[2023-08-30 18:31] LABS: HEMATOCRIT 44.6 % (36.0-47.0); HEMOGLOBIN 14.6 g/dl (12.0-15.5); MEAN CORPUSCULAR HEMOGLOBIN 28.7 pg (27.0-33.0); MEAN CORPUSCULAR HGB CONC 32.7 g/dl (32.0-36.5); MEAN CORPUSCULAR VOLUME 87.8 fl (80.0-96.0); PLATELET COUNT, AUTOMATED 359 10^3/uL (150-450); RED BLOOD COUNT 5.08 10^6/uL (4.00-5.40); WHITE BLOOD COUNT 9.4 10^3/uL (4.0-10.0)
[2023-08-30 19:14] LABS: ALBUMIN 4.1 G/DL (3.2-5.2); ALKALINE PHOSPHATASE 84 U/L (46-116); ALT/SGPT 18 U/L (7.0-40); AST/SGOT 13 U/L (<34); BILIRUBIN,TOTAL 0.3 MG/DL (0.3-1.2); BLOOD UREA NITROGEN 14 MG/DL (9-23); CARBON DIOXIDE LEVEL 25 MMOL/L (20-31); CHLORIDE LEVEL 110 MMOL/L (98-107); CREATININE FOR GFR 0.67 MG/DL (0.55-1.30); GLOMERULAR FILTRATION RATE > 60.0 (>45); GLUCOSE, FASTING 84 MG/DL (74-106); POTASSIUM SERUM 4.3 MMOL/L (3.5-5.1); SODIUM LEVEL 143 MMOL/L (136-145); TOTAL PROTEIN 7.2 G/DL (5.7-8.2)
[2023-08-30 19:17] LABS: THYROID STIMULATING HORMONE 0.692 uIU/ML (0.55-4.78)
[2023-08-30 19:20] LABS: FREE T4 1.14 NG/DL (0.89-1.76)
== END ==
LOC: M SFHCCLAY 11:33
PROVIDERS: ATTEND Family Medicine
DX: E03.9 Hypothyroidism, unspecified (principal); R06.09 Other forms of dyspnea; E11.9 Type 2 diabetes mellitus without complications; F17.210 Nicotine dependence, cigarettes, uncomplicated

== ENCOUNTER → 2023-08-30 | Outpatient (CLI) | payer MEDICARE, MEDICAID | LOC: M CLY 11:56 | PROVIDERS: ATTEND Family Medicine | DX: R06.09 Other forms of dyspnea (principal); F17.210 Nicotine dependence, cigarettes, uncomplicated ==

== ENCOUNTER → 2023-11-22 | Outpatient (CLI) | payer MEDICARE, MEDICAID | LOC: M RAD 10:56 | PROVIDERS: ATTEND Family Medicine | DX: Z12.2 Encounter for screening for malignant neoplasm of respiratory organs (principal); F17.210 Nicotine dependence, cigarettes, uncomplicated ==

== ENCOUNTER → 2023-12-15 | Outpatient (REF) | payer MEDICARE, MEDICAID ==
[2023-12-15 18:08] LABS: FREE T4 1.08 NG/DL (0.89-1.76)
[2023-12-15 18:09] LABS: ALBUMIN 4.1 G/DL (3.2-5.2); ALKALINE PHOSPHATASE 85 U/L (35-104); ALT/SGPT 15 U/L (7.0-40); AST/SGOT 13 U/L (<34); BILIRUBIN,TOTAL 0.3 MG/DL (0.3-1.2); BLOOD UREA NITROGEN 14 MG/DL (9-23); CALCIUM LEVEL 10.6 MG/DL (8.3-10.6); CARBON DIOXIDE LEVEL 28 MMOL/L (20-31); CHLORIDE LEVEL 107 MMOL/L (98-107); CREATININE FOR GFR 0.62 MG/DL (0.55-1.30); GLOMERULAR FILTRATION RATE > 60.0 (>45); GLUCOSE, FASTING 96 MG/DL (74-106); POTASSIUM SERUM 5.2 MMOL/L (3.5-5.1); SODIUM LEVEL 140 MMOL/L (136-145); TOTAL PROTEIN 7.7 G/DL (5.7-8.2)
[2023-12-15 18:12] LABS: HEMATOCRIT 44.6 % (36.0-47.0); HEMOGLOBIN 14.4 g/dl (12.0-15.5); MEAN CORPUSCULAR HEMOGLOBIN 29.8 pg (27.0-33.0); MEAN CORPUSCULAR HGB CONC 32.3 g/dl (32.0-36.5); MEAN CORPUSCULAR VOLUME 92.1 fl (80.0-96.0); PLATELET COUNT, AUTOMATED 388 10^3/uL (150-450); RED BLOOD COUNT 4.84 10^6/uL (4.00-5.40); WHITE BLOOD COUNT 9.8 10^3/uL (4.0-10.0)
[2023-12-15 19:37] LABS: HEMOGLOBIN A1c 5.4 % (4.0-6.0)
== END ==
LOC: M SFHCCLAY 10:32
PROVIDERS: ATTEND Family Medicine
DX: R06.09 Other forms of dyspnea (principal); E11.9 Type 2 diabetes mellitus without complications; E03.9 Hypothyroidism, unspecified; F17.210 Nicotine dependence, cigarettes, uncomplicated; E55.9 Vitamin D deficiency, unspecified

== ENCOUNTER 2024-08-22 06:13 | Day surgery (SDC) | payer MEDICARE, MEDICAID ==
[~2024-08-22] VITALS: Ht 154.9 cm; Wt 48.4 kg
[~2024-08-22 06:13] MED LIST changes: +ARIP1TAB4 PO; +ATOR40TA75 PO; +LEVO88TA3 PO; +LIDO1ADH93 TD; -LIDO5DIS41 TD; +LISD40CA PO; +MONT10TA97 PO; +OMEP40CA5 PO; +PHENYLEPHRINE 10% OPHTH SOL 5ML OS PRN; +PREG150C2 PO; +TIRZ5PEN SQ; +TOPI-21 PO; -VERA100C4 PO; +VERA100C6 PO
[2024-08-22] MEDS: TROPICAMIDE 1% OPHTH SOLN 15ML OS SCH (06:50)
[2024-08-22] MEDS: OFLOXACIN 0.3 % (OCUFLOX) OPTH SOL 5ML OS ONE (06:50)
[2024-08-22] MEDS: CYCLOPENTOLATE 1% OPHTH SOLN 2 ML BTL OS SCH (06:50)
[2024-08-22] MEDS: LIDOCAINE 3.5% 1 ML OPHTH TOPICAL GEL OU ONE (06:50)
[2024-08-22] MEDS: PHENYLEPHRINE 2.5% OPHTH SOL 2ML OS SCH (06:50)
[2024-08-22] MEDS ORDERED: MIDAZOLAM INJ 2 MG/2 ML VIAL As Ordered ONE (07:11)
[2024-08-22 07:57] VITALS: BP 139/64; TEMP 97.3; O2SAT 97
[2024-08-22] MEDS: LIDOCAINE 1% SDV 5 ML VIAL As Ordered ONE (07:59)
[2024-08-22] MEDS: BSS IRRIG/VANCO(10MG)/TOBRA(5MG)/EPINEPH(1:1000-0.5CC)500ML BAG-ORONLY As Ordered ONE (07:59)
[2024-08-22] MEDS: CEFUROXIME 1 MG/0.1 ML INTRACAMERAL INJ As Ordered ONE (08:10)
== END 2024-08-22 08:49 | disposition home or self-care (01) ==
LOC: M SDC 06:13
PROVIDERS: ATTEND Ophthalmology
DX: H25.12 Age-related nuclear cataract, left eye (principal); E11.9 Type 2 diabetes mellitus without complications; E03.9 Hypothyroidism, unspecified; E78.5 Hyperlipidemia, unspecified; F41.9 Anxiety disorder, unspecified; F32.A Depression, unspecified; M79.7 Fibromyalgia; K58.8 Other irritable bowel syndrome; K21.9 Gastro-esophageal reflux disease without esophagitis; E04.0 Nontoxic diffuse goiter; F90.9 Attention-deficit hyperactivity disorder, unspecified type; F17.200 Nicotine dependence, unspecified, uncomplicated; G43.909 Migraine, unspecified, not intractable, without status migrainosus; Z79.899 Other long term (current) drug therapy; Z88.0 Allergy status to penicillin; Z88.2 Allergy status to sulfonamides
CPT/HCPCS: 66984; J0697; J2250; J3010; V2632

== ENCOUNTER 2024-08-29 07:14 | Day surgery (SDC) | payer MEDICARE, MEDICAID ==
[~2024-08-29] VITALS: Ht 154.9 cm; Wt 49.8 kg
[~2024-08-29 07:14] MED LIST changes: +MIDAZOLAM INJ 2 MG/2 ML VIAL As Ordered ONE; +PHENYLEPHRINE 10% OPHTH SOL 5ML OD PRN; -PHENYLEPHRINE 10% OPHTH SOL 5ML OS PRN
[2024-08-29] MEDS ORDERED: BSS IRRIG/VANCO(10MG)/TOBRA(5MG)/EPINEPH(1:1000-0.5CC)500ML BAG-ORONLY ONE (07:15)
[2024-08-29] MEDS: OFLOXACIN 0.3 % (OCUFLOX) OPTH SOL 5ML OD ONE (07:59)
[2024-08-29] MEDS: LIDOCAINE 3.5% 1 ML OPHTH TOPICAL GEL OU ONE (07:59)
[2024-08-29] MEDS: TROPICAMIDE 1% OPHTH SOLN 15ML OD SCH (07:59)
[2024-08-29] MEDS: PHENYLEPHRINE 2.5% OPHTH SOL 2ML OD SCH (07:59)
[2024-08-29] MEDS: CYCLOPENTOLATE 1% OPHTH SOLN 2 ML BTL OD SCH (07:59)
[2024-08-29] MEDS: LIDOCAINE 1% SDV 5 ML VIAL As Ordered ONE (09:04)
[2024-08-29] MEDS: CEFUROXIME 1 MG/0.1 ML INTRACAMERAL INJ As Ordered ONE (09:04)
[2024-08-29 09:15] VITALS: BP 110/54; TEMP 97.7; O2SAT 96
== END 2024-08-29 09:45 | disposition home or self-care (01) ==
LOC: M SDC 07:14
PROVIDERS: ATTEND Ophthalmology
DX: E11.36 Type 2 diabetes mellitus with diabetic cataract (principal); H25.11 Age-related nuclear cataract, right eye; E03.9 Hypothyroidism, unspecified; E11.40 Type 2 diabetes mellitus with diabetic neuropathy, unspecified; J45.909 Unspecified asthma, uncomplicated; E78.00 Pure hypercholesterolemia, unspecified; E04.1 Nontoxic single thyroid nodule; K58.9 Irritable bowel syndrome, unspecified; Z79.890 Hormone replacement therapy; K21.9 Gastro-esophageal reflux disease without esophagitis; Z79.899 Other long term (current) drug therapy; Z79.85 Long-term (current) use of injectable non-insulin antidiabetic drugs; Z88.0 Allergy status to penicillin; Z88.2 Allergy status to sulfonamides; Z90.89 Acquired absence of other organs; I72.9 Aneurysm of unspecified site; G43.909 Migraine, unspecified, not intractable, without status migrainosus; F90.9 Attention-deficit hyperactivity disorder, unspecified type
CPT/HCPCS: 66984; J0697; J2250; J3010; V2632

== ENCOUNTER → 2024-09-04 | Outpatient (CLI) | payer MEDICARE, MEDICAID ==
[~2024-09-04] MED LIST changes: -MIDAZOLAM INJ 2 MG/2 ML VIAL As Ordered ONE; -PHENYLEPHRINE 10% OPHTH SOL 5ML OD PRN; +PROHANCE 279.3MG/ML 5ML VIAL ONE
== END ==
LOC: M PLAIMG 10:06
PROVIDERS: ATTEND Student in an Organized Health Care Education/Training Program
DX: M51.16 Intervertebral disc disorders with radiculopathy, lumbar region (principal); Z98.1 Arthrodesis status; M47.26 Other spondylosis with radiculopathy, lumbar region
CPT/HCPCS: 72141; 72158; A9576

== ENCOUNTER → 2024-11-04 | Outpatient (REF) | payer MEDICARE, MEDICAID ==
[~2024-11-04] MED LIST changes: -PROHANCE 279.3MG/ML 5ML VIAL ONE
[2024-11-04 17:49] LABS: BASO # 0.1 10^3/uL (0.0-0.2); BASO % 1.5 % (0.0-1.0); EOS # 0.2 10^3/uL (0.0-0.5); EOS % 2.9 % (0.0-3.0); LYMPH # 2.7 10^3/uL (1.5-5.0); LYMPH % 33.5 % (24.0-44.0); MONO # 0.6 10^3/uL (0.0-0.8); MONO % 7.5 % (2.0-8.0); NEUTROPHILS # 4.4 10^3/uL (1.5-8.5); NEUTROPHILS % 54.5 % (36.0-66.0); PLATELET COUNT, AUTOMATED 322 10^3/uL (150-450)
[2024-11-04 17:53] LABS: ALT/SGPT 11 U/L (7.0-40); AST/SGOT 16 U/L (<34); CALCIUM LEVEL 9.3 MG/DL (8.3-10.6); CARBON DIOXIDE LEVEL 27 MMOL/L (20-31); CHLORIDE LEVEL 105 MMOL/L (98-107); CHOLESTEROL LEVEL 208 MG/DL (<200); CHOLESTEROL RISK RATIO 2.80 (<5); CREATININE FOR GFR 0.69 MG/DL (0.55-1.30); GLOMERULAR FILTRATION RATE > 90.0 (>45); LDL CHOLESTEROL 113.2 MG/DL (<100); NON-HDL-C 133.8 MG/DL; POTASSIUM SERUM 3.9 MMOL/L (3.5-5.1); SODIUM LEVEL 137 MMOL/L (136-145); TRIGLYCERIDES LEVEL 103 MG/DL (<150)
[2024-11-04 17:54] LABS: FREE T4 1.44 NG/DL (0.89-1.76)
== END ==
LOC: M SFHCCLAY 12:52
PROVIDERS: ATTEND Nurse Practitioner Family
DX: E87.5 Hyperkalemia (principal); E11.9 Type 2 diabetes mellitus without complications; E03.9 Hypothyroidism, unspecified; E78.2 Mixed hyperlipidemia